=== PATIENT | male | born 1985 | race Caucasian/White ===

== ENCOUNTER 2019-11-04 18:47 | Emergency (ER) | payer SELFPAY ==
[2019-11-04 18:52] VITALS: BP 138/78; PULSE 78; RESP 18; TEMP 37; O2SAT 100
--- NOTE | 2019-11-04 20:07 | ED.GENADULT ---
HPI - General Adult General Chief complaint: Unspecified Stated complaint: R NECK/THROAT PAIN Time Seen by Provider: 11/04/19 18:53 Source: patient Mode of arrival: ambulatory Limitations: no limitations History of Present Illness HPI narrative: Patient is a 34-year-old male who presents to emergency department for evaluation of right neck pain that is been going on for over a month has been evaluated for this was told that he had a salivary duct stone patient is not follow-up with specialty services as instructed patient on arrival to emergency department notes that he gets bouts of intermittent pain that radiates down the neck gets chills and sweats at times with it and the pain resolves spontaneously patient on arrival to emergency department is resting comfortably in the room in no distress Related Data Allergies Allergy/AdvReac Type Severity Reaction Status Date / Time tramadol AdvReac Severe Nausea and Verified 02/16/19 07:38 Vomiting codeine AdvReac Intermediate N/V Verified 02/16/19 07:38 Review of Systems Review of Systems: All systems reviewed & are unremarkable except as noted in HPI and below Exam Narrative: Exam Narrative: GENERAL: Well-appearing, well-nourished, and in no acute distress. HEAD: Normocephalic, atraumatic. EYES: PERRLA and EOMI. ENT: Nares clear, no rhinorrhea or epistaxis. Mucous membranes moist. Oropharynx without tonsillar hypertrophy exudate or other lesions. Tenderness of the right sublingual gland with no swelling or deformity noted NECK: Supple. No adenopathy or masses. CHEST: Clear to auscultation. No respiratory distress. No wheezes rales or rhonchi HEART: Regular rate and rhythm. No murmur heard. EXTREMITIES: Normal range of motion. No edema. SKIN: Warm, dry, no rash. NEURO: No focal deficits. Alert and oriented x3. PSYCH: Normal mood and affect. Course Course Emergency Course: Patient in the room in no distress Vital Signs Vital signs: Vital Signs Temperature 98.6 F 11/04/19 18:52 Pulse Rate 78 11/04/19 18:52 Respiratory Rate 18 11/04/19 18:52 Blood Pressure 138/78 11/04/19 18:52 Pulse Oximetry 100 11/04/19 18:52 Temperature 98.6 F 11/04/19 18:52 Pulse Rate 78 11/04/19 18:52 Respiratory Rate 18 11/04/19 18:52 Blood Pressure 138/78 11/04/19 18:52 Pulse Oximetry 100 11/04/19 18:52 Medical Decision Making MDM Narrative Medical decision making narrative: Patient afebrile nontoxic-appearing no distress patient referred to ENT and provided with reasons to return. There are no focal signs of space occupying lesions that are compromising to the ariway. The floor of the mouth is soft with no signs of Ludwigs Angina. Patient is without trismus or drooling and able to swallow secreations. Patient is felt appropriate for discharge home with dental follow up. Vital Signs Vital Signs: Vital Signs Temperature 98.6 F 11/04/19 18:52 Pulse Rate 78 11/04/19 18:52 Respiratory Rate 18 11/04/19 18:52 Blood Pressure 138/78 11/04/19 18:52 Pulse Oximetry 100 11/04/19 18:52 Temperature 98.6 F 11/04/19 18:52 Pulse Rate 78 11/04/19 18:52 Respiratory Rate 18 11/04/19 18:52 Blood Pressure 138/78 11/04/19 18:52 Pulse Oximetry 100 11/04/19 18:52 Discharge Plan Discharge Clinical Impression: Acute neck pain Patient Disposition: Home, Self-Care Condition: Stable Instructions: Antibiotic Form, Acute Neck Pain (ED) Additional Instructions: Follow up with your ENT within 5-7 days. Go to ER for shortness of breath, difficulty breathing, chest pain, fever/chills, weakness, nauseau/vomitting, unable to swallow or open the mouth etc. or any other concerns. Take any prescribed medications as directed. If you do not have a drug allergy to tylenol or motrin and can tolerate it then take tylenol or motrin as needed for discomfort/pain. Follow-up/Referrals: Eddi Logan MD [Primary Care Provider] -
[2019-11-04 20:20] VITALS: BP 134/85; PULSE 81; RESP 16; TEMP 36.2; O2SAT 100
== END 2019-11-04 20:21 | disposition home or self-care (01) ==
PROVIDERS: Emergency Provider Emergency Medicine; PCP Family Medicine
DX: M54.2 Cervicalgia (principal)
CPT/HCPCS: 99281

== ENCOUNTER 2019-11-09 19:19 | Emergency (ER) | payer SELFPAY ==
[2019-11-09 19:23] VITALS: BP 149/89; PULSE 96; RESP 18; TEMP 36.5; O2SAT 100
--- NOTE | 2019-11-09 20:25 | ECG_ITS ---
Measurements Intervals [place] Rate: 67 P: 73 MS: 173 QRS: 89 QRSD: 96 T: 68 QT: 374 QTc: 396 Interpretive Statements SINUS RHYTHM BASELINE ARTIFACT- V1-V2, V6 NORMAL ECG Electronically Signed On 11-10-2019 6:53:26 CDT by Christos Brown D.O.
--- NOTE | 2019-11-09 20:26 | ED.GENADULT ---
HPI - General Adult General Chief complaint: Unspecified Stated complaint: neck pain Time Seen by Provider: 11/09/19 20:07 Source: patient Mode of arrival: ambulatory Limitations: no limitations History of Present Illness HPI narrative: Patient presents with several concerns. He has a known salivary gland stone, that he wants to have removed, but he is deadly afraid of needles and will not have medical procedures that have to do with needles. He has a PCP appointment December 13, but thinks that he may have a heart attack in his kitchen and drop before then. He went to the chiropractor today and felt fine, and then got home and started panicking. He worries that his stone is going to push on a vein or artery and will kill him. He has never seen a psychiatrist, and refuses any psych meds for his anxiety. He is afraid of a doctor bossing him around and making him have procedures. He works as a general internist. He is fine while he is busy at work. Onset (ago): year(s) Severity: moderate Relieving factors: none Associated symptoms: denies other symptoms Treatments prior to arrival: none Related Data Allergies Allergy/AdvReac Type Severity Reaction Status Date / Time tramadol AdvReac Severe Nausea and Verified 11/09/19 19:24 Vomiting codeine AdvReac Intermediate N/V Verified 11/09/19 19:24 Review of Systems Review of Systems: All systems reviewed & are unremarkable except as noted in HPI and below Constitutional: Constitutional: Reports no additional constitutional complaints ENT: Reports system reviewed and no additional complaints, except as documented, Denies dysphagia, Denies epistaxis, Denies nasal congestion and Denies sore throat Cardiovascular: Cardiovascular: Reports rapid heart rate Respiratory: Respiratory: Reports no additional respiratory complaints Gastrointestinal: Gastrointestinal: Reports no additional gastrointestinal complaints Neurologic: Comments: He has tremor when he gets really worked up. Psychiatric: Psychiatric: Reports anxiety, Denies homicidal ideation and Denies suicidal ideation ON LICENSE OF [facility] Past Medical History Medical History (Updated 11/09/19 @ 20:37 by Dot Gibbons MD) Male circumcision Surgical History Surgical History (Updated 11/09/19 @ 20:33 by Dot Gibbons MD) [place] teeth extracted Social History Social History (Updated 11/09/19 @ 20:35 by Dot Gibbons MD) Smoking status: Current every day smoker Tobacco type: cigarettes Alcohol intake: former Substance use: never Living arrangements: alone 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 Gender identity (if verbalized by the patient): Male Exam Const: General: alert Nutritional Appearance: thin Orientation/consciousness: patient oriented x3 HENMT: Head: normal to inspection Face and sinus: normal facial exam Mouth: Yes moist mucous membranes Eyes: Conjunctivae: conjunctivae normal Pupils: Equal, round and reactive pupils present EOM: EOMs intact bilaterally Neck: Neck: normal visual inspection, no lymphadenopathy and no meningeal signs Chest: Chest palpation & inspection: normal inspection of the chest Resp: Effort & Inspection: normal respiratory effort Auscultation: clear to auscultation bilaterally Cardio: Rate: regular rate Rhythm: regular rhythm GI: GI Palp: Yes Soft to palpation Skin: General skin exam: normal color Neuro: General: patient oriented x3, moves all extremities, no focal motor deficits and CN's II-XI intact bilaterally Speech: normal speech Psych: Thought content: Yes Phobia(s) present Other: He is crying that he can't have any procedures because of his needle phobia and he doesn't want to take any nerve medications. Course Reevaluation(s) Reevaluation #1: He is resting quietly and will accept a prescription for atarax 25mg for anxiety. Date: 11/09/19 Time: 21:47 Vital Signs Vital signs: Vital Signs Temperatu
[2019-11-09 21:31] VITALS: BP 110/71; PULSE 78; RESP 18; O2SAT 100
[2019-11-09 21:49] VITALS: BP 110/71; PULSE 62; RESP 18; O2SAT 99
== END 2019-11-09 21:50 | disposition home or self-care (01) ==
PROVIDERS: Emergency Provider Emergency Medicine; PCP Family Medicine
DX: K11.5 Sialolithiasis (principal); F41.9 Anxiety disorder, unspecified; F40.232 Fear of other medical care; R00.0 Tachycardia, unspecified; F17.210 Nicotine dependence, cigarettes, uncomplicated
CPT/HCPCS: 93005; 99283

== ENCOUNTER 2022-07-18 17:08 | Emergency (ER) | payer SELFPAY ==
[2022-07-18 17:10] VITALS: BP 131/83; PULSE 108; RESP 18; TEMP 36.7; O2SAT 100
--- NOTE | 2022-07-18 18:00 | ED.GENADULT ---
HPI - General Adult General Chief complaint: Unspecified Stated complaint: salivary gland stone, can't get in to ENT Time Seen by Provider: 07/18/22 17:51 History of Present Illness HPI narrative: 27 year old male presents to the ER for evaluation of a suspected obstructed salivary stone to the right side. States pain has been present for several days and is associated with dysphagia. Patient reports he has an appointment with MD Cedeño in 3 days. Endorses a history of salivary stone obstruction with possible stent (?) placement in the salivary gland. Paitent denies fever. Related Data Allergies Allergy/AdvReac Type Severity Reaction Status Date / Time tramadol AdvReac Severe Nausea and Verified 07/18/22 17:51 Vomiting codeine AdvReac Intermediate N/V Verified 07/18/22 17:51 Review of Systems Review of Systems: CONSTITUTIONAL: Denies fever, chills, or sweats. EYES: Denies visual changes, redness, or discharge. ENT: Denies rhinorrhea, congestion, sore throat, or otalgia. CARDIOVASCULAR: Denies chest pain, palpitations, or edema. RESPIRATORY: Denies cough or dyspnea. GASTROINTESTINAL: Denies abdominal pain, nausea, vomiting, or diarrhea. GENITOURINARY: Denies dysuria or hematuria. SKIN: Denies rash or itching. MUSCULOSKELETAL: Denies back pain, joint pain, or myalgia. NEUROLOGIC: Denies headache, numbness, dizziness, or weakness. PSYCHIATRIC: Denies anxiety or depression. [facility] Past Medical History Medical History Male circumcision Surgical History Surgical History [place] teeth extracted Social History Social History Smoking status: Current every day smoker Tobacco type: cigarettes Alcohol intake: former Substance use: never Additional occupation/education comments: contractor Gender identity (if verbalized by the patient): Male Exam Narrative: GENERAL: Well-appearing, well-nourished, no physical limitations, and in acute distress. HEAD: Normocephalic, atraumatic. EYES: Conjunctivae normal, PERRLA and EOMI. ENT: deferred to MD Cai NECK: Supple. No meningeal signs. No adenopathy or masses. No carotid bruits or JVD CHEST: Clear to auscultation. No respiratory distress. No wheezes rales or rhonchi. No tenderness. HEART: Regular rate and rhythm. No murmur heard. Normal peripheral pulses. EXTREMITIES: Normal range of motion. No edema. No clubbing or cyanosis SKIN: Warm, dry, no rash. No noted wounds NEURO: No focal deficits. Alert and oriented x3. MAEW. CN's II-XI intact bilaterally, normal gait PSYCH: Cooperative. Normal mood and affect. Course Course Emergency Course: 1744: MD Cai at bedside to evaluate patient. Vital Signs Vital signs: Vital Signs Temperature 36.7 C 07/18/22 17:10 Pulse Rate 108 H 07/18/22 17:10 Respiratory Rate 18 07/18/22 17:10 Blood Pressure 131/83 07/18/22 17:10 Pulse Oximetry 100 07/18/22 17:10 Oxygen Delivery Room Air 07/18/22 17:10 Temperature 36.7 C 07/18/22 17:10 Pulse Rate 108 H 07/18/22 17:10 Respiratory Rate 18 07/18/22 17:10 Blood Pressure 131/83 07/18/22 17:10 Pulse Oximetry 100 07/18/22 17:10 Oxygen Delivery Room Air 07/18/22 17:10 Medical Decision Making MDM Narrative Medical decision making narrative: 37-year-old male presented to the emergency room for evaluation of suspected salivary gland stone obstruction. MD Cai was in the department and I asked him to evaluate the patient. Patient stated he sees Dr. Ornelas, and has an appointment to see him in 3 days. Patient also reports that there is a possible salivary gland stent that was placed [address] Cai was unable to dislodge the stone through manual manipulation, he encourage patient to follow-up with Dr. Cedeño in [address] Cai also recommends antibiotics and
[2022-07-18 18:03] VITALS: BP 133/77; PULSE 88; RESP 16; TEMP 36.7; O2SAT 100
== END 2022-07-18 18:04 | disposition home or self-care (01) ==
PROVIDERS: Emergency Provider Nurse Practitioner Family; PCP Family Medicine
DX: K11.5 Sialolithiasis (principal); F17.210 Nicotine dependence, cigarettes, uncomplicated
CPT/HCPCS: 99283

== ENCOUNTER 2023-02-26 05:49 | Emergency (ER) | payer SELFPAY ==
[2023-02-26] VITALS (37 sets, daily range): BP systolic 54–139; BP diastolic 29–121; PULSE 65–523; RESP 10–21; TEMP 36.8–36.9; O2SAT 86–100
--- NOTE | ~2023-02-26 | CT_ITS ---
EXAMINATION: CT soft tissue neck w con DATE: 02/26/2023 08:44 INDICATION: Neck mass. Swollen salivary gland. Neck pain. Dysphagia. TECHNIQUE: Computed tomography (CT) of the neck was performed with 75 mL Omnipaque-350 intravenous co ntrast. Automated exposure control and iterative reconstruction technique were employed. The dose-jacklyn gth product was 459.56 mGy-cm. COMPARISON: None FINDINGS: There is mild scarring at the lung apices. There is mild emphysema. There is an 11 mm stone in the duct of right submandibular gland. There is severe atrophy of right submandibular gland. Ther e are 2 mm and 1 mm stones in the duct for left submandibular gland. In the left floor of mouth, ther e is a 3.0 x 1.4 x 1.4 cm abscess containing fluid and gas and 7 mm and 2 mm stones. The abscess is c ontiguous with the duct for submandibular gland. There is mucosal thickening involving the nasopharyn x, oropharynx, and supraglottic larynx, left worse than right. There is moderate atrophy of left palak ibular gland. There is fat stranding in the neck, left worse than right, consistent with inflammation . There is left retropharyngeal, bilateral high internal jugular, and left mid internal jugular lymph adenopathy. For example, a left high internal jugular chain node measures 2.0 x 1.5 cm. There is an i ncreased number of normal-sized submandibular lymph nodes. The cervical carotid arteries are normal. The internal jugular veins are patent. There is mucosal thickening in the paranasal sinuses. There is extensive dental disease. The mastoid air cells are normal. There is mild cervical spondylosis. IMPRESSION: 1. Abscess in the left floor of mouth that is contiguous with the duct for left submandibular gland. 2. Stones in the ducts for the submandibular glands bilaterally. 3. Inflammation of the pharynx and larynx. 4. Cervical lymphadenopathy, likely reactive. 5. Mild emphysema. 6. Extensive dental disease. Reviewed, dictated and finalized at location A.
--- NOTE | 2023-02-26 06:02 | PC.NURSE ---
Patient brought back to ED room 8. Patient changed into ED gown and sat down on stretcher. PILLO Meredith entered room with IV and blood draw supplies. Patient then asked if we could wait on the IV because he has a phobia of needles and is already freaking out. Patient became anxious and kept repeating he wanted to wait on the doctor before Masoud luna I established an IV. Patient connected to cardiac, pulse ox, and blood pressure monitors. Patient in no noted distress while sitting on the stretcher, equal chest rise and fall presents, patient speaking in full and complete sentences, and oxygen saturations of 99% on room air. Rope Making Machine Operator notified patient that will wait for physician to see patient before and IV is established.
--- NOTE | 2023-02-26 07:20 | ED.GENADULT ---
HPI - General Adult General Chief complaint: Unspecified Stated complaint: throat swelling Time Seen by Provider: 02/26/23 07:10 History of Present Illness HPI narrative: Pt presents with mass in left neck. Pt has trouble swallowing due to pain but able to swallow saliva. Pt denies fever or chills. Pt has dental caries and says has appointment with dentist. Related Data Allergies Allergy/AdvReac Type Severity Reaction Status Date / Time tramadol AdvReac Severe Nausea and Verified 07/18/22 17:51 Vomiting codeine AdvReac Intermediate N/V Verified 07/18/22 17:51 Review of Systems Review of Systems: All systems reviewed & are unremarkable except as noted in HPI and below PMFSH Past Medical History Medical History Male circumcision Surgical History Surgical History [place] teeth extracted Social History Social History Smoking status: Current every day smoker Tobacco type: cigarettes Alcohol intake: former Substance use: never Living arrangements: alone 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 Gender identity (if verbalized by the patient): Male Exam Const: General: cooperative, healthy appearing and no acute distress Nutritional Appearance: average body habitus Orientation/consciousness: patient oriented x3 Limitations: no limitations HENMT: Mouth: Yes other (numerous dental caries but no definitive abscess) Teeth and gingiva: caries and poor dentition Throat: posterior oropharynx normal Neck: Neck: trachea midline, lymphadenopathy, tender and submandibular swelling (left side mass) Thyroid: thyroid normal Resp: Effort & Inspection: normal respiratory effort Auscultation: clear to auscultation bilaterally Cardio: Rate: regular rate Rhythm: regular rhythm Skin: General skin exam: normal color and no rashes or lesions noted Neuro: General: patient oriented x3, moves all extremities, no meningeal signs and no focal motor deficits Cognition (Neuro): normal cognition Speech: normal speech Extrem: General: normal to inspection and full ROM Psych: Appearance: grossly normal Mental Status: mental status grossly normal Speech and movement: Normal speech and movement present Affect: normal affect Attitude: cooperative Thought process: Normal thought process present Thought content: Yes Normal thought content present Insight: Good insight present (Psych) Judgement: Good judgement present (Psych) Course Vital Signs Vital signs: Vital Signs Temperature 98.5 F 02/26/23 05:50 Pulse Rate 107 H 02/26/23 05:50 Respiratory Rate 18 02/26/23 05:50 Blood Pressure 116/65 02/26/23 05:50 Pulse Oximetry 100 02/26/23 05:50 Oxygen Delivery Room Air 02/26/23 05:50 Temperature 98.3 F 02/26/23 14:00 Pulse Rate 100 02/26/23 14:00 Respiratory Rate 16 02/26/23 14:00 Blood Pressure 126/80 02/26/23 14:00 Pulse Oximetry 97 02/26/23 14:00 Oxygen Delivery Room Air 02/26/23 05:50 Medical Decision Making MDM Narrative Medical decision making narrative: Pt has tender mass left submandibular region, could be reactive node or abscess maybe even extending to Vito's. will need labs and CT soft tissue neck. Pt has abscess in submandibular salivary gland on CT. Dr Cai came and saw patient and the abscess started draining into his mouth. Pt given dose of antibiotics and steroids in ER and over next coupl of hours pt manualy expressed most of the pus out of the abscess himself. Pt was reassesed by Dr Cai and he thought the patient could be safely discharged and pt agreed. Vital Signs Vital Signs: Vital Signs Temperature 98.5 F 02/26/23 05:50 Pulse Rate 107 H 02/26/23 05:50 Respiratory Rate 18 02/26/23 05:50 Blood Pressure 116/65 /01
[2023-02-26 07:52] LABS: Basophils Absolute Auto 0.1 K/mm3 (0.0-0.1); Basophils Percent Auto 0.5 % (0.2-1.2); Hematocrit 47.2 % (42.0-52.0); Immature Granulocyte Absolute 0.14 K/mm3 (0.00-0.031); Immature Granulocyte Percent A 0.6 % (0-0.5); Lymphocytes Absolute Auto 2.92 K/mm3 (0.9-3.2); Lymphocytes Percent Auto 13.1 % (18.3-44.2); Mean Corpuscular HGB Conc 33.9 g/dl (32-36); Mean Corpuscular Hemoglobin 30.9 pg (26-34); Mean Corpuscular Volume 91.3 fl (80-100); Mean Platelet Volume 9.9 fl (7.4-10.4); Monocytes Absolute Auto 2.1 K/mm3 (0.1-0.6); Monocytes Percent Auto 9.6 % (2.6-8.5); Neutrophils Absolute Auto 16.9 K/mm3 (1.3-6.7); Neutrophils Percent Auto 76.2 % (45.5-73.1); Platelet Count Result 233 k/mm3 (150-375); Red Blood Count 5.17 M/mm3 (4.6-6.20); Red Cell Distribution Width 13.2 % (11.5-14.5); White Blood Count 22.3 K/mm3 (4.5-10.0)
--- NOTE | 2023-02-26 07:53 | PC.NURSE ---
Unsuccessful IV attempt on pt. Pt stated he is afraid of needles and refused to sit in bed. Pt reported feeling lightheaded and dizzy and was told by this RN that he needed to sit in the bed. Pt had vasovagal response and then was helped to stretcher and stretcher was placed in Trendelenburg. Pt placed in Trendelenburg and symptoms and vital signs improved. Pt educated on importance of staying in bed.
[2023-02-26 08:03] LABS: INR 1.2; Prothrombin Time 15.8 Seconds (11.1-14.7)
[2023-02-26 08:04] LABS: Partial Thromboplastin Time 29.9 SECONDS (22.3-36.8)
[2023-02-26 08:05] LABS: Alanine Aminotransferase 19 U/L (6-50); Albumin Level 5.2 g/dL (3.5-5.1); Alkaline Phosphatase 71 U/L (38-126); Anion Gap 12 mmol/L (8-16); Aspartate Amino Transferase 27 U/L (17-59); Bilirubin,Total 2.2 mg/dL (0.2-1.3); Blood Urea Nitrogen 13 mg/dL (9-20); Calcium 9.7 mg/dL (8.4-10.2); Carbon Dioxide 27 mmol/L (22-30); Chloride 99 mmol/L (98-107); Estimated CRCL calculation 102 ml/min; Estimated Glomerular Filt Rate > 60; Glucose 94 mg/dL (65-110); Potassium 3.5 mmol/L (3.4-5.0); Sodium 138 mmol/L (137-145)
[2023-02-26] MEDS: SODIUM CHLORIDE 0.9% IV 1,000 ML 999 ML IV CONT (08:17)
--- NOTE | 2023-02-26 11:40 | WPDCN ---
Assessment and Plan Assessment and plan (1) Sialadenitis: Code(s): K11.20 - Sialoadenitis, unspecified Status: Acute Assessment and Plan: recommended inpatient observation with IV antibiotics and steroids patient says he would rather go home. If discharged recommend a 10 day course of Augmentin or clindamycin and a Medrol Dosepak. Patient should follow-up with Dr. Chuck Adhikari at [facility]. He's a regional expert in salivary gland disorders and may be able to extract the stone. 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 Patient has abscess on the CT. As per the official read. Per my read looks like a dilated duct with the stone in it that abscess behind it. purulence behind in the duct. Was able to squeeze the patient's neck And get A lot of purulence in the patient's mouth. 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 Gender identity (if verbalized by the patient): Male Meds Home Medications and Allergies Home Medications Medication Instructions Recorded Confirmed Type hydroxyzine HCl 25 mg tablet 25 mg PO BID PRN anxiety #7 tabs 11/09/19 Rx amoxicillin 875 mg-potassium 1 tablet PO Q12H #14 tabs 07/18/22 Rx clavulanate 125 mg tablet hydrocodone 5 mg-acetaminophen 325 1 tablet PO Q8H PRN pain #15 tabs 07/18/22 Rx mg tablet amoxicillin 875 mg-potassium 1 tablet PO Q12H #20 tabs 08/01/23 Rx clavulanate 125 mg tablet methylprednisolone 4 mg tablets in See Rx Instructions PO .COMPLEX 02/26/23 Rx a dose pack (Medrol ([place])) #21 ea Allergies Allergy/AdvReac Type Severity Reaction Status Date / Time tramadol AdvReac Severe Nausea and Verified 07/18/22 17:51 Vomiting codeine AdvReac Intermediate N/V Verified 07/18/22 17:51 Vital Signs Vital Signs - 24 hr 02/26/23 05:50 02/26/23 05:58 02/26/23 06:00 Temperature 36.9 C 36.9 C Pulse Rate 107 H 118 H Respiratory Rate 18 18 Blood Pressure 116/65 130/83 Pulse Oximetry 100 100 100 Oxygen Delivery Room Air 02/26/23 06:01 02/26/23 06:03 02/26/23 06:15 Temperature Pulse Rate 112 H 105 H 116 H Respiratory Rate 12 16 Blood Pressure 114/75 Pulse Oximetry 100 100 100 Oxygen Delivery 02/26/23 06:16 02/26/23 06:17 02/26/23 06:38 Temperature Pulse Rate 116 H 111 H 100 Respiratory Rate 16 15 15 Blood Pressure 114/79 Pulse Oximetry 100 100 100 Oxygen Delivery 02/26/23 06:50 02/26/23 07:09 02/26/23 07:15 Temperature Pulse Rate 102 H 108 H 115 H Respiratory Rate 12 21 H Blood Pressure Pulse Oximetry 100 100 Oxygen Delivery 02/26/23 07:16 02/26/23 07:33 02/26/23 07:45 Temperature Pulse Rate 123 H 115 H 523 H Respiratory Rate 13 15 12 Blood Pressure 139/121 H 54/29 L Pulse Oximetry 86 L 100 91 Oxygen Delivery 02/26/23 07:49 02/26/23 07:49 02/26/23 08:00 Temperature Pulse Rate 68 65 92 Respiratory Rate 19 17 15 Blood Pressure 104/62 Pulse Oximetry 97 Oxygen Delivery 02/26/23 08:01 02/26/23 09:01 02/26/23 09:02 Temperature Pulse Rate 93 97 101 H Respiratory Rate 12 16 11 L Blood Pressure 117/69 103/63 Pulse Oximetry 97 100 100 Oxyg
[2023-02-26] MEDS: AMPICILLIN SULB 3 GM/NS 100 ML 3 GM/100 ML VIAL IVPB (11:41)
== END 2023-02-26 14:40 | disposition home or self-care (01) ==
PROVIDERS: Emergency Provider Emergency Medicine
DX: K12.2 Cellulitis and abscess of mouth (principal); F17.210 Nicotine dependence, cigarettes, uncomplicated
CPT/HCPCS: 36415; 70491; 80053; 85025; 85610; 85730; 87040; 96361; 96365; 96375; 99284; J0295; J1100; J7030; Q9967

== ENCOUNTER 2025-01-31 06:50 | Emergency (ER) | payer SELFPAY ==
--- OUTSIDE RECORDS SUMMARY | 2025-01-31 06:52 | XMS_ITS | Encounter Summary ---
Author Organization [facility] Healthcare Address [address] [place] [address] Care Team Providers Care Home Security Alarm Installer Name Role Phone No, Physician Primary Care Provider [phone] Encounter Details Date Type Department Care Team (Latest Contact Info) Description 01/30/2025 Telephone Otolaryngology Mando Mccullough MD [address] [address] Social History Tobacco Use Types Packs/Day Years Used Date Smoking Tobacco: Every Day Cigarettes 0.8 22.5 Started: 2002 Passive Smoke Exposure: Past Smokeless Tobacco: Never [facility] Utilities Answer Date Recorded In the past 12 months has [employer] electric, gas, oil, or water company threatened to shut off services in your home? No 01/08/2025 Social Connection and Isolat ion Panel [NHANES] Answer Date Recorded In a typical week, how many times do you talk on the phone with family, friends, or neighbors? More than three times a week 01/08/2025 How often do you get togethe r with friends or relatives? More than three times a week 01/08/2025 How often do you attend chur ch or orthodoxy services? Never 01/08/2025 Do you belong to any clubs o r organizations such as confucianist groups, unions, fraternal or athletic groups, or school groups? No 01/08/2025 How often do you attend meet ings of the clubs or organizations you belong to? Never 01/08/2025 Are you , , di vorced, , never , or living with a partner? Never 01/08/2025 AUDIT-C Answer Date Recorded Q1: How often do you have a drink containing alcohol? Never 01/15/2025 Q2: How many drinks containi ng alcohol do you have on a typical day when you are drinking? Patient does not drink Q3: How often do you have si x or more drinks on one occasion? Never 01/15/2025 Overall Financial Resource Strain (CARDIA) Answe r Date Recorded How hard is it for you to pa y for the very basics like food, housing, medical care, and heating? Not hard at all 01/08/2025 PHQ-2 Answer Date Recorded PHQ-2 Total Score (If total score is 3 or more points, staff should administer the PHQ-9) 1 01/08/2025 Hunger Vital Sign Answer Date Recorded Within the past 12 months, y ou worried that your food would run out before you got the money to buy more. Never true 01/09/20 25 Within the past 12 months, t he food you bought just didn't last and you didn't have money to get more. Never true 01/08/2025 PRAPARE - Transportation Answer Date Re corded In the past 12 months, has l ack of transportation kept you from medical appointments or from getting medications? No 12/27 In the past 12 months, has l ack of transportation kept you from meetings, work, or from getting things needed for daily living? No 01/08/2025 Housing Stability Vital Sign Answer John e Recorded In the last 12 months, was t here a time when you were not able to pay the mortgage or rent on time? No 01/08/2025 In the past 12 months, how m any times have you moved where you were living? 1 01/08/2025 At any time in the past 12 m [facility], were you homeless or living in a longterm (including now)? No 01/08/2025 Personal Safety Answer Date Recorded Have you ever been in or are you currently in a harmful physical or emotional relationship or is someone making you feel afraid or unsafe? Denies 01/15/2025 Sex and Gender Information Value Date Recorded Sex Assigned at Not on file Legal Sex Male 11:15 AM CDT Gender Identity Not on file Sexual Orientation Not on file documented as of this encounter Miscellaneous Notes * Telephone Encounter - Mando Mccullough MD - 01/30/2025 11:12 PM CDT Pt is s/p SMG excision on 01/15/25. Most recently, pt was seen in clinic by Dr. Can on 01/26 where he was placed on doxycycline and augmentin and received needle aspiration. He notes that his neck hasreaccumulated with fluid, and is erythematous and tender. He does not have fever, general malaise, or SOB. We discussed options including coming into the ED for evaluation and drainage versus observation and following up on clinic on Saturday. We discussed that should he develop fever, general malaise, SOB, purulence, or worsening symptoms, he should present to the ED for evaluation. documented in this encounter Plan of Treatment Not on file documented as of this encounter Visit Diagnoses Not on filedocumented in this encounter Care Teams Home Security Alarm Installer Relationship Specialty Start Date End Date No, Physician PCP - General 05/13/23 documented as of this encounter
--- OUTSIDE RECORDS SUMMARY | 2025-01-31 06:53 | XMS_ITS | Clinical Summary ---
Author Organization [facility] Address [address] [place] [id number] Care Team Providers Care Manufacturing Recruiter Name Role Phone None, Provider MD Primary Care Provider Unavaila ble Allergies Active Allergy Reactions Criticality Noted Date Comments Codeine Nausea Only 04/26/2020 Medications No known medications Active Problems No known active problems Immunizations Immunization Administration Dates Next Due Tdap (Adacel) 04/26/2020 Family History Medical History Relation Comments No Known Problems Mother Relation Status Comments Mother Social History Tobacco Use Types Packs/Day Years Used Date Smoking Tobacco: Every Day Cigarettes Smokeless Tobacco: Never Alcohol Use Standard Drinks/Week Comments Never 0 (1 standard drink = 0.6 oz pur e alcohol) AUDIT-C Answer Date Recorded Q1: How often do you have a drink containing alc ohol? Never 04/26/2020 Average Number of Drinks Not on file 020 Frequency of Binge Drinking Not on file 03/30 Sex and Gender Information Value Date Recorded Sex Assigned at Not on file Legal Sex Male 3:33 AM CDT Gender Identity Not on file Sexual Orientation Not on file Last Filed Vital Signs Vital Sign Reading Time Taken Comments Blood Pressure 121/79 05/06/2023 11:29 AM CDT Pulse 86 05/06/2023 11:29 AM CDT Temperature 36.9 C (98.4 F) 05/06/2023 11:29 AM CDT Respiratory Rate 16 05/06/2023 11:29 AM CDT Oxygen Saturation 99% 05/06/2023 11:29 AM CDT Inhaled Oxygen Concentration - - Weight 62.1 kg (137 lb) 05/06/2023 11:29 AM CDT Height 170.2 cm (5' 7) 05/06/2023 11:29 AM CDT Body Mass Index 21.46 05/06/2023 11:29 AM CDT Plan of Treatment Health Maintenance Due Date Last Done Comments Annual Physical 1987 Hepatitis C 2002 Hepatitis B Vaccines (1 of 3 - 19+ 3-dose series) 2003 Pneumococcal Vaccine: Pediat rics (0 to 5 Years) and At-Risk Patients (6 to 49 Years) (1 of 2 - PCV) 2003 COVID-19 Vaccine (2023-2 5 season) 2024 DTaP, Tdap and Td Vaccines ( 2 - Td or Tdap) 04/26/2030 04/26/2020 HPV Vaccines Aged Out No longer eligi ble based on patient's age to complete this topic Meningococcal B Vaccine Aged Out No l onger eligible based on patient's age to complete this topic Meningococcal Vaccine Aged Out No jeanette cali eligible based on patient's age to complete this topic RSV Immunizations Under 20 Months Aged Out No longer eligible based on patient's age to complete this topic Care Teams Manufacturing Recruiter Relationship Specialty Start Date End Date None, Provider, MD PCP - General UNKNOWN PHYSICIAN SPECIALTY 05/06/23
--- OUTSIDE RECORDS SUMMARY | 2025-01-31 06:53 | XMS_ITS | Referral Summary ---
Author Organization [facility] [address] Address [address] [place] [address] Care Team Providers Care Seed Analysis Laboratory Assistant Name Role Phone No, Physician Primary Care Provider [phone] Encounters Date Type Department Care Team Description 01/30/2025 Telephone Otolaryngology Mando Mccullough MD 01/26/2025 2:41 PM CDT - 01/26/2025 11:59 PM CDT Hospital Encounter [address] [id number] Abscess; Abscess of skin of neck Discharge Disposition: Discharge to home or self care 01/26/2025 Orders Only [facility] ([facility]) - [facility] ENT [address] [place] [address] Advanced Medicine 11th [place] [address] [place] [address] Stacie Can MD Abscess of skin of neck (Primary Dx); Abscess 01/26/2025 9:00 AM CDT Office Visit [facility] ([facility]) - [facility] ENT [address] [place] [address] Advanced Medicine 11th [place] [address] [place] [address] Stacie Can MD Submandibular sialoadenitis (Primary Dx); Abscess of skin of neck 01/15/2025 9:05 AM CDT - 01/15/2025 12:00 PM CDT Surgery [facility] Operating [facility] [address] [place] [id number] Stacie Can MD EXCISION SUBMANDIBULAR GLAND 01/15/2025 9:31 AM CDT Anesthesia Event [facility] Operating Room [facility] [address] [place] [address] Bharat Jasmine MD Heuvelman, Katherine Marie, NP 01/15/2025 6:33 AM CDT - 01/15/2025 3:57 PM CDT Hospital Encounter [facility] Operating Room [facility] [address] [place] [phone] Stacie Can MD Submandibular sialolithiasis; Submandibular sialoadenitis; Abscess of submandibular gland Discharge Disposition: Discharge to home or self care 01/14/2025 Telephone [facility] - [facility] ENT [address] [facility] Advanced Medicine [address]th [place] [address] [place] [address] Michelle Rolle, KARELY 01/11/2025 Telephone [facility] ([facility]) - [facility] ENT [address] [facility] Advanced Medicine [address]th [place] [address] [place] [address] Michelle Rolle, KARELY 01/07/2025 3:30 AM CDT - 01/10/2025 1:24 PM CDT Hospital Encounter [facility] [address] [place] [address] Bessy Shore MD [place], MD Shruthi Roper Sean C., MD Petrovic Elbaz, Mirjana, MD Sialadenitis (Primary Dx); Neck abscess Discharge Disposition: Discharge to home or self care 01/05/2025 Telephone [facility] ([facility]) - [facility] ENT [address] [facility] Advanced Medicine [address]th [place] [address] [place] [address] Michelle Rolle CMA 01/05/2025 Telephone [facility] Advanced [facility] ([facility]) - [facility] ENT [address] [facility] Advanced Medicine [address]th [place] [address] [place] [address] Michelle Rolle CMA 01/05/2025 12:00 PM CDT Telemedicine [facility] ENT [address] [facility] Building [address] [place] [phone] Stacie Can MD Submandibular sialoadenitis (Primary Dx); Sialolithiasis 12/16/2024 Telephone [facility] Advanced [facility] ([facility]) - [facility] ENT [address] [facility] Advanced [facility] [address]th [place] [address] [place] [address] Michelle Rolle CMA 12/16/2024 Telephone [facility] Otolaryngology [address] [place] [address] Mikayla Abebe MS 12/08/2024 1:28 AM CDT - 12/11/2024 12:19 PM CDT Hospital Encounter [address] [phone] Keyur Phillip MD Baum, MD Laya Mckeon Sarakshi, MD Abscess (Primary Dx) Discharge Disposition: Discharge to home or self care 12/07/2024 8:57 PM CDT - 12/07/2024 10:41 PM CDT Emergency [address] [address] Sialoadenitis (Primary Dx); Submandibular abscess Discharge Disposition: Discharge to a short term hospital for IP 12/07/2024 Telephone [facility] ENT [address] [facility] Medical [facility] [address] [place] [phone] Michelle Rolle CMA 12/06/2024 8:19 AM CDT - 12/06/2024 9:40 AM CDT Emergency [facility] Emergency Department [address] [place] [phone] Jose Caal MD Submandibular sialoadenitis (Primary Dx) Discharge Disposition: Discharge to home or self care from Last 3 Months Allergies Active Allergy Reactions Criticality Noted Date Comments Codeine Nausea only Low 04/26/2020 Medications acetaminophen (TYLENOL) 500 mg tablet Take 1 tablet (500 mg total) by mouth every 6 (six) hours as needed for pain Active ibuprofen 200 mg tab/cap Take 2 tablet/capsule (400 mg total) by mouth every 6 (six) hours as needed for pain Active amoxicillin-c lavulanate (AUGMENTIN) 875-125 mg per tabletIndicat ions:Upper Respiratory/H EENT Infection Take 1 tablet (875 mg of amoxicillin total) by mouth 2 (two) times a day for 14 days 28 tablet 01/27/20 25 025 Active doxycycline (VIBRAMYCIN) 100 mg capsuleIndica tions:Upper Respiratory/H EENT Infection Take 1 tablet/capsule (100 mg total) by mouth 2 (two) times a day for 14 days 28 tablet/caps ule 01/27/20 25 025 Active levoFLOXacin (LEVAQUIN) 500 mg tabletIndicat ions:Upper Respiratory/H EENT Infection Take 1 tablet (500 mg total) by mouth daily for 10 days 10 tablet 01/06/20 25 025 Discontinued(St op Taking at Discharge) amoxicillin-c lavulanate (AUGMENTIN) 875-125 mg per tablet Take 1 tablet by mouth 2 (two) times a day for 5 days 10 tablet 01/11/20 25 025 Discontinued amoxicillin-c lavulanate (AUGMENTIN) 875-125 mg per tablet Take 1 tablet by mouth 2 (two) times a day for 6 days 12 tablet 01/11/20 25 025 Discontinued(St op Taking at Discharge) doxycycline (VIBRAMYCIN) 100 mg capsule Take 1 tablet/capsule (100 mg total) by mouth 2 (two) times a day for 6 days 12 tablet/caps ule 01/11/20 25 025 Discontinued(St op Taking at Discharge) HYDROcodone-a cetaminophen (NORCO) 5-325 mg per tabletIndicat ions:Pain Take 1 tablet by mouth every 6 (six) hours as needed for pain for up to 7 days 15 tablet 01/16/20 25 025 amoxicillin-c lavulanate (AUGMENTIN) 875-125 mg per tablet Take 1 tablet by mouth 2 (two) times a day for 7 days 14 tablet 01/16/20 25 025 bacitracin-po lymyxin B (bacitracin zinc-polymyxi n B) ointment Apply topically 2 (two) times a day for 3 days Apply to incision 2 times daily x 3 days 15 g 1 01/16/20 25 025 doxycycline (VIBRAMYCIN) 100 mg capsule Take 1 tablet/capsule (100 mg total) by mouth 2 (two) times a day for 7 days 14 tablet/caps ule 01/16/20 25 025 Hospital, Clinic, or Other Facility Administered Medication Ordered Dose Route Frequency Start Date End Date Status cefepime (MAXIPIME) 2,000 mg/100 mL in dextrose (premix) 2,000 mgIndications:Skin /Soft Tissue Infection 2000 mg IV Every 8 hours scheduled 01/07/2025 5 Discontinued vancomycin (VANCOCIN) solution 1,000 mgIndications:Skin /Soft Tissue Infection 1000 mg IV Every 12 hours scheduled 01/07/2025 5 Discontinued metroNIDAZOLE (FLAGYL) tablet 500 mgIndications:Skin /Soft Tissue Infection 500 mg oral 4 times daily 01/07/2025 5 Discontinued Active Problems Problem Noted Date Diagnosed Date Hyperkalemia 01/08/2025 Assessment & Plan (01/10/2025 8:15 AM CDT): K 5.5 in admission labs, resolved with out intervention , K normal on 01/08 labs Assessment & Plan (01/09/2025 8:23 AM CDT): K 5.5 in admission labs, resolved with out intervention , K normal on 01/08 labs Assessment & Plan (01/08/2025 2:02 PM CDT): K 5.5 in admission labs, resolved with out intervention , K normal on 01/08 labs Submandibular sialolithiasis 12/15/2024 Submandibular sialoadenitis 12/15/2024 Abscess of submandibular gland 12/15/2024 Assessment & Plan (01/10/2025 4:41 PM CDT): Hx of bilateral submandibular duct sialolithiasis c/b left SMG abscess s/p needle aspiration on 12/11, discharged on Augmentin and added ciprofloxacin returning with recurrence of neck mass and concern for repeat infection. S/p needle aspiration of 12cc purulent material in ED by ENT, sent for culture. Prior aspiration culture last admission grew upper respiratory osmar including strep anginosus. - ENT consult appreciated - continue unasyn, stop clinda per abx stewardship as likely not needed at this time. - aspirate culture from 01/07- Fusobacterium nucleatum , Beta lactamase negative - cultures from repeat I&D on 01/08- Few Coagulase negative Staphylococcus species - warm compresses 3x daily - trial pilocarpine TID - ID conuslt appreciated- dc-ed on Augmentin and Doxycyline until surgery with further evaluation for abx need after surgery - Bilateral SMG excision scheduled for 01/15/2025 outpatient with ENT Assessment & Plan (01/10/2025 7:35 AM CDT): Hx of bilateral submandibular duct sialolithiasis c/b left SMG abscess s/p needle aspiration on 12/11, discharged on Augmentin and added ciprofloxacin returning with recurrence of neck mass and concern for repeat infection. S/p needle aspiration of 12cc purulent material in ED by ENT, sent for culture. Prior aspiration culture last admission grew upper respiratory osmar including strep anginosus. - ENT consult appreciated - continue unasyn, stop clinda per abx stewardship as likely not needed at this time. - aspirate culture from 01/07- no growth to date - cultures from repeat I&D on 01/08- no growth to date - warm compresses 3x daily - trial pilocarpine TID - Bilateral SMG excision tentatively scheduled for 01/28/2025 pending clinical progression, may require inpatient SMG excision if not improving Assessment & Plan (01/08/2025 2:02 PM CDT): Hx of bilateral submandibular duct sialolithiasis c/b left SMG abscess s/p needle aspiration on 12/11, discharged on Augmentin and added ciprofloxacin returning with recurrence of neck mass and concern for repeat infection. S/p needle aspiration of 12cc purulent material in ED by ENT, sent for culture. Prior aspiration culture last admission grew upper respiratory osmar including strep anginosus. - ENT consult appreciated - continue unasyn, stop clinda per abx stewardship as likely not needed at this time. - aspirate culture from 01/07- no growth to date - fw cultures from repeat I&D on 01/08 - warm compresses 3x daily - trial pilocarpine TID - Bilateral SMG excision tentatively scheduled for 01/28/2025 pending clinical progression, may require inpatient SMG excision if not improving Assessment & Plan (01/07/2025 4:38 PM CDT): Hx of bilateral submandibular duct sialolithiasis c/b left SMG abscess s/p needle aspiration on 12/11, discharged on Augmentin and added ciprofloxacin returning with recurrence of neck mass and concern for repeat infection. S/p needle aspiration of 12cc purulent material in ED by ENT, sent for culture. Prior aspiration culture last admission grew upper respiratory osmar including strep anginosus. - ENT following - continue unasyn, stop clinda per abx stewardship as likely not needed at this time. Follow aspirate culture data and tailor abx as appropriate - warm compresses 3x daily - trial pilocarpine TID - Bilateral SMG excision tentatively scheduled for 01/28/2025 pending clinical progression, may require inpatient SMG excision if not improving Abscess 12/08/2024 Assessment & Plan (12/11/2024 11:27 AM CDT): Patient with a history of bilateral submandibular sialolithiasis and recurrent sialoadenitis s/p sialolithotomy to remove an impacted stone in distal left submandibular duct in 2019. Presented for left neck pain and swelling x4 days. WBC 12.7, CT neck showed left sialoadenitis with an associated rim enhancing abscess in the left neck and right sialolith -ENT consulted, appreciate recs -aspiration of left neck abscess at bedside -follow cultures: strep anginosus -request for US guided aspiration -radiology consulted for aspiration -superficial team attempted on 12/09 but unable to complete d/t inability to tolerate needles/needing to be sedated -US showed 4.0 cm rim-enhancing abscess/phlegmon in the left neck -deep team consulted and aspiration on 12/10 with sedation - 5cc fluid removed -Aerobic/anaerobic, fungal, AFB pending -IV Unasyn -discussed with ENT and should get 10-14 days of abx -Pain control, pt would like to avoid opioids Assessment & Plan (12/10/2024 12:59 PM CDT): Patient with a history of bilateral submandibular sialolithiasis and recurrent sialoadenitis s/p sialolithotomy to remove an impacted stone in distal left submandibular duct in 2019. Presented for left neck pain and swelling x4 days. WBC 12.7, CT neck showed left sialoadenitis with an associated rim enhancing abscess in the left neck and right sialolith -ENT consulted, appreciate recs -aspiration of left neck abscess at bedside -follow cultures: strep anginosus -request for US guided aspiration -radiology consulted for aspiration -superficial team attempted on 12/09 but unable to complete d/t inability to tolerate needles/needing to be sedated -US showed 4.0 cm rim-enhancing abscess/phlegmon in the left neck -deep team consulted and planning for aspiration on 12/10 with sedation -Aerobic/anaerobic, fungal, AFB requested -IV Unasyn -Pain control, pt would like to avoid opioids Assessment & Plan (12/09/2024 3:56 PM CDT): Patient with a history of bilateral submandibular sialolithiasis and recurrent sialoadenitis s/p sialolithotomy to remove an impacted stone in distal left submandibular duct in 2019. Presented for left neck pain and swelling x4 days. WBC 12.7, CT neck showed left sialoadenitis with an associated rim enhancing abscess in the left neck and right sialolith -ENT consulted, appreciate recs -aspiration of left neck abscess at bedside -follow cultures: currently with gram + cocci -request for US guided aspiration -radiology consulted for aspiration -superficial team attempted on 12/09 but unable to complete d/t inability to tolerate needles/needing to be sedated -deep team consulted and planning for aspiration on 12/10 with sedation -Aerobic/anaerobic, fungal, AFB requested -IV Unasyn -Pain control Assessment & Plan (12/08/2024 4:30 AM CDT): Patient with a history of bilateral submandibular sialolithiasis and recurrent sialoadenitis s/p sialolithotomy to remove an impacted stone in distal left submandibular duct in 2019 -Presented for left neck pain and swelling x4 days -WBC 12.7, CT neck showed left sialoadenitis with an associated rim enhancing abscess in the left neck and right sialolith Plan: -Discussed with ENT resident at bedside who will attempt aspiration of left neck abscess however they will not be aggressive with aspiration. Infection will need to improve for him to get eventual surgery -IV Unasyn -Pain control -NPO for now until evaluated by day ENT team per resident Sialadenitis 12/08/2024 Assessment & Plan (01/10/2025 4:41 PM CDT): Hx of bilateral submandibular duct sialolithiasis c/b left SMG abscess s/p needle aspiration on 12/11, discharged on Augmentin and added ciprofloxacin returning with recurrence of neck mass and concern for repeat infection. S/p needle aspiration of 12cc purulent material in ED by ENT, sent for culture. Prior aspiration culture last admission grew upper respiratory osmar including strep anginosus. - ENT consult appreciated - continue unasyn, stop clinda per abx stewardship as likely not needed at this time. - aspirate culture from 01/07- Fusobacterium nucleatum , Beta lactamase negative - cultures from repeat I&D on 01/08- Few Coagulase negative Staphylococcus species - warm compresses 3x daily - trial pilocarpine TID - ID conuslt appreciated- dc-ed on Augmentin and Doxycyline until surgery with further evaluation for abx need after surgery - Bilateral SMG excision scheduled for 01/15/2025 outpatient with ENT Assessment & Plan (01/10/2025 7:35 AM CDT): Hx of bilateral submandibular duct sialolithiasis c/b left SMG abscess s/p needle aspiration on 12/11, discharged on Augmentin and added ciprofloxacin returning with recurrence of neck mass and concern for repeat infection. S/p needle aspiration of 12cc purulent material in ED by ENT, sent for culture. Prior aspiration culture last admission grew upper respiratory osmar including strep anginosus. - ENT consult appreciated - continue unasyn, stop clinda per abx stewardship as likely not needed at this time. - aspirate culture from 01/07- no growth to date - cultures from repeat I&D on 01/08- no growth to date - warm compresses 3x daily - trial pilocarpine TID - Bilateral SMG excision tentatively scheduled for 01/28/2025 pending clinical progression, may require inpatient SMG excision if not improving Assessment & Plan (01/08/2025 2:02 PM CDT): Hx of bilateral submandibular duct sialolithiasis c/b left SMG abscess s/p needle aspiration on 12/11, discharged on Augmentin and added ciprofloxacin returning with recurrence of neck mass and concern for repeat infection. S/p needle aspiration of 12cc purulent material in ED by ENT, sent for culture. Prior aspiration culture last admission grew upper respiratory osmar including strep anginosus. - ENT consult appreciated - continue unasyn, stop clinda per abx stewardship as likely not needed at this time. - aspirate culture from 01/07- no growth to date - fw cultures from repeat I&D on 01/08 - warm compresses 3x daily - trial pilocarpine TID - Bilateral SMG excision tentatively scheduled for 01/28/2025 pending clinical progression, may require inpatient SMG excision if not improving Assessment & Plan (01/07/2025 4:38 PM CDT): Hx of bilateral submandibular duct sialolithiasis c/b left SMG abscess s/p needle aspiration on 12/11, discharged on Augmentin and added ciprofloxacin returning with recurrence of neck mass and concern for repeat infection. S/p needle aspiration of 12cc purulent material in ED by ENT, sent for culture. Prior aspiration culture last admission grew upper respiratory osmar including strep anginosus. - ENT following - continue unasyn, stop clinda per abx stewardship as likely not needed at this time. Follow aspirate culture data and tailor abx as appropriate - warm compresses 3x daily - trial pilocarpine TID - Bilateral SMG excision tentatively scheduled for 01/28/2025 pending clinical progression, may require inpatient SMG excision if not improving Assessment & Plan (12/11/2024 8:11 AM CDT): -See above Assessment & Plan (12/10/2024 8:17 AM CDT): -See above Assessment & Plan (12/09/2024 3:56 PM CDT): -See above Assessment & Plan (12/08/2024 4:30 AM CDT): -See above Tobacco use 12/08/2024 Assessment & Plan (12/11/2024 8:11 AM CDT): -Nicotine patch -Tobacco cessation education Assessment & Plan (12/10/2024 8:17 AM CDT): -Nicotine patch -Tobacco cessation education Assessment & Plan (12/09/2024 3:56 PM CDT): -Nicotine patch -Tobacco cessation education Assessment & Plan (12/08/2024 4:30 AM CDT): -Nicotine patch -Tobacco cessation education Social History Tobacco Use Types Packs/Day Years Used Date Smoking Tobacco: Every Day Cigarettes 0.8 22.5 Started: 2002 Passive Smoke Exposure: Past Smokeless Tobacco: Never Tobacco Cessation:Ready to Q uit: Not Asked; Counseling Given: Not Answered [facility] [employer] Answer Date Recorded In the past 12 months has th e [employer] gas, oil, or water [employer] threatened to shut off services in your [...] often do you attend chur ch or restorationism services? Never 01/08/2025 Do you belong to any clubs o r organizations such as denominational groups, unions, fraternal or athletic groups, or [...] any time in the past 12 m [facility], were you homeless or living in a halfway (including now)? No 01/08/2025 Personal Safety Answer [...] Sign Reading Time Taken Comments Blood Pressure 126/90 01/15/2025 2:30 PM CDT Pulse 69 01/15/2025 3:50 PM CDT Temperature 36.5 C (97.7 F) 01/15/2025 12:45 PM CDT Respiratory Rate 9 01/15/2025 2:30 PM CDT Oxygen Saturation 99% 01/15/2025 3:50 PM CDT Inhaled Oxygen Concentration - - Weight 63.1 kg (139 lb 1.8 oz) 01/15/2025 7:55 A M CDT Height 170.2 cm (5' 7) 01/11/2025 11:20 AM CDT Body Mass Index 21.79 01/11/2025 11:20 AM CDT Plan of Treatment Not on file Procedures Procedure Name Priority Date/Time Associated Diagnosis Comments AEROBIC AND ANAEROBIC CULTURE AND GRAM STAIN Routine 01/26/2025 3:22 PM CDT Abscess Abscess of skin of neck MYCOLOGY (FUNGAL) CULTURE Routine 01/26/2025 3:22 PM CDT Abscess Abscess of skin of neck SURGICAL PATHOLOGY Routine 01/15/2025 11:27 AM CDT Submandibular sialolithiasis Submandibular sialoadenitis Abscess of submandibular gland TX AN PROCEDURE PLACEHOLDER Routine 01/15/2025 10:00 AM CDT TX AN ELECTIVE ENDOTRACHEAL AIRWAY Routine 01/15/2025 10:00 AM CDT EXCISION SUBMANDIBULAR GLAND. 01/15/2025 9:33 AM CDT Submandibular sialolithiasis Submandibular sialoadenitis Abscess of submandibular gland EGFR Routine 01/08/2025 9:20 PM CDT DIFFERENTIAL AUTO Routine 01/08/2025 9:2 0 PM CDT BASIC METABOLIC PANEL Routine 01/08/2025 9:20 PM CDT CBC WITH AUTO DIFFERENTIAL Routine 01/08/2025 9:20 PM CDT AEROBIC AND ANAEROBIC CULTURE AND GRAM STAIN Routine 01/08/2025 2:27 PM CDT EGFR STAT 01/08/2025 8:59 AM CDT BASIC METABOLIC PANEL STAT 01/08/2025 8:59 AM CDT EGFR Routine 01/07/2025 6:47 AM CDT DIFFERENTIAL AUTO Routine 01/07/2025 6:4 7 AM CDT COMPREHENSIVE METABOLIC PANEL Routine 01/07/2025 6:47 AM CDT CBC WITH AUTO DIFFERENTIAL Routine 01/07/2025 6:47 AM CDT AEROBIC AND ANAEROBIC CULTURE AND GRAM STAIN STAT 01/07/2025 5:43 AM CDT EGFR Routine 12/10/2024 10:39 PM CDT DIFFERENTIAL AUTO Routine 12/10/2024 10:39 PM CDT BASIC METABOLIC PANEL Routine 12/10/2024 10:39 PM CDT CBC WITH AUTO DIFFERENTIAL Routine 12/10/2024 10:39 PM CDT US GUIDED ASPIRATION ABSCESS HEMATOMA CYST SOFT TISSUE IP Routine 12/10/2024 3:17 PM CDT CYTOLOGY Routine 12/10/2024 3:07 PM CDT Abscess AEROBIC AND ANAEROBIC CULTURE AND GRAM STAIN Routine 12/10/2024 2:00 PM CDT MYCOLOGY (FUNGAL) CULTURE AND STAIN Routine 12/10/2024 2:00 PM CDT MYCOBACTERIOLOGY AFB CULTURE AND ACID-FAST STAIN Routine 12/10/2024 2:00 PM CDT EGFR Routine 12/09/2024 9:05 PM CDT DIFFERENTIAL AUTO Routine 12/09/2024 9:0 5 PM CDT BASIC METABOLIC PANEL Routine 12/09/2024 9:05 PM CDT CBC WITH AUTO DIFFERENTIAL Routine 12/09/2024 9:05 PM CDT US SOFT TISSUE HEAD NECK ED Urgent/IP Urgent 12/09/2024 10:04 AM CDT EGFR Routine 12/09/2024 4:09 AM CDT CBC WITHOUT DIFFERENTIAL Routine 12/09/2024 4:09 AM CDT BASIC METABOLIC PANEL Routine 12/09/2024 4:09 AM CDT PROTIME-INR Routine 12/09/2024 4:09 AM CDT TX CRITICAL CARE ILL/INJURED PATIENT INIT 30-74 MIN Routine 12/08/2024 6:39 AM CDT AEROBIC AND ANAEROBIC CULTURE AND GRAM STAIN STAT 12/08/2024 6:00 AM CDT EGFR STAT 12/07/2024 9:43 PM CDT DIFFERENTIAL AUTO STAT 12/07/2024 9:4 3 PM CDT SEPSIS LACTATE WITH REFLEX STAT 12/07/2024 9:43 PM CDT COMPREHENSIVE METABOLIC PANEL STAT 12/07/2024 9:43 PM CDT CBC WITH AUTO DIFFERENTIAL STAT 12/07/2024 9:[address] SOFT TISSUE NECK W CONTRAST ED 12/07/2024 5:17 PM CDT EGFR STAT 12/06/2024 8:14 AM CDT DIFFERENTIAL AUTO STAT 12/06/2024 8:1 4 AM CDT COMPREHENSIVE METABOLIC PANEL STAT 12/06/2024 8:14 AM CDT CBC WITH AUTO DIFFERENTIAL STAT 12/06/2024 8:14 AM CDT from Last 3 Months Results * Aerobic and anaerobic culture and gram stain Abscess Neck, left (01/26/2025 3:22 PM CDT) Direct Specimen Exam Stain: Moderate polymorphonuclear leukocytes seen. No organisms seen. Report Final Report: No growth [facility] Abscess (Neck, left) 01/26/2025 3:22 PM CDT 01/26/2025 3:55 PM CDT Narrative [facility] - 01/29/2025 12:18 PM CDT Neck abscess Testing performed by [facility] Microbiology Laboratory ([phone]) Specimens submitted from normally sterile body sites will have all bacterial morphotypes identified. Specimens that contain grossly mixed osmar and/or are from body sites that are not normally sterile will be examined for Staphylococcus aureus, Pseudomonas aeruginosa, beta-hemolytic strep, vancomycin-resistant Enterococcus, Bacteroides, Parabacteroides, Clostridium perfringens and fungus. If any of these are isolated, the organism will be reported. Current interpretive data was last revised on 2019. Stacie Can MD LAB MICROBIOLOGY - GEN ERAL ORDERABLES Final Result [facility] [place] [address] * Surgical pathology (01/15/2025 11:27 AM CDT) Tissue (Sublingual/Subma ndibular Gland) 01/15/2025 11:27 AM CDT Narrative PATHOLOGY [facility] - 01/20/2025 12:11 PM CDT EPIC results best viewed via link to PDF [facility] of Surgical Pathology One [facility], [place] [address] Note to Patients: This report may contain a detailed description of human tissue sent by a health care provider to the laboratory for pathologic evaluation. The content of this report is essential for diagnosis and may provide important critical findings. This information may be unfamiliar to patients to review without a medical professional present. It is advised that the patient review this report in the presence of a health care provider who can answer questions and explain the details. SURGICAL PATHOLOGY REPORT FINAL Patient Name: CRYSTAL BRUNO Gender: M : 1985 (Age: 39) Address: [address] [place], [place] [id number] Hospital #: [id number] Taken:01/15/2025 Received:01/15/2025 Reported: 01/20/2025 Patient Type: [facility] Service: Surgery Location: Physician(s): Stacie Can M.D. 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 Annette Chopra MD, PhD Report Electronically Reviewed and Signed Out By Annette Chopra MD, PhD 01/20/2025 12:11:43 Gaudencio Belcher M.D. History: The patient is a 39-year-old man with history of submandibular sialoadenitis and sialolithiasis. Operative Procedure: Excision left submandibular gland. Specimen(s) Received: A: Left submandibular gland Gross Description: Received in formalin labeled with the patient's identifiers and left submandibular gland is a 6 g, 3 x 3 x 1.5 cm lobular portion of pink-mcgill tissue. The gland is inked and sectioned. There is a yellow-mcgill lobular cut surface with some dusky discoloration and no obvious calculus. Sections are submitted labeled A 1 to A4. Jar 1. /01/18/2025 11:00 PA(s): Ewa Roberts, MS, PA (ASCP) By this signature, I attest that the above diagnosis is based upon my personal examination of the slides(and/or other material). Addenda/Procedures The performance characteristics of some immunohistochemical stains, fluorescence in-situ hybridization tests and immunophenotyping by flow cytometry cited in this report (if any) were determined by the Surgical Pathology and Flow Cytometry Departments at [facility] as part of an ongoing bottle house quality control technician program and in compliance with federally mandated regulations drawn from the Clinical Laboratory Improvement Act of 1988 (CLIA '88). Some of these tests rely on the use of analyte specific reagents and are subject to specific labeling requirements by the US Food and Drug Administration. Such diagnostic tests may only be performed in a facility that is certified by the Department of Health and Human Services as a high complexity laboratory under CLIA '88. The FDA has determined that such clearance or approval is not necessary. This test is used for clinical purposes. It should not be regarded as investigational or for research. Nevertheless, federal rules concerning the medical use of analyte specific reagents require that the following disclaimer be attached to the report: This test was developed and its performance characteristics determined by the Surgical Pathology and Flow Cytometry Departments of [facility]. It has not been cleared or approved by the U. S. Food and Drug Administration. IMAGES AND SCANNED DOCUMENTS, IF INCLUDED, ONLY VIEWABLE IN PDF VERSION OF REPORT Stacie Can MD LAB PATHOLOGY ORDERABL ES Final Result PATHOLOGY [facility] 3rd Floor [place], [place] [phone] * TX AN ELECTIVE ENDOTRACHEAL AIRWAY, TX AN PROCEDURE PLACEHOLDER (01/15/2025 10:00 AM CDT) Narrative Tristan Lamas CRNA - 01/15/2025 10:00 AM CDT Tristan Lamas CRNA 01/15/2025 10:01 AM Airway Patient location: OR Urgency: elective Indications for airway management: anesthesia Difficult airway: no Airway prep: Preoxygenated: yes Patient position: sniffing Mask difficulty assessment: 0 - not attempted Spontaneous ventilation during airway: absent Sedation level during airway: GA Final airway details: Final airway type: endotracheal airway Tube type: ETT ETT size: 7.5 mm Cuffed: yes Technique used for successful ETT placement: video laryngoscopy Devices/Methods used in placement: intubating stylet Insertion site: oral Blade type: Foreign Video blade type: Michael Blade size: 4 Cormack-Lehane (video): grade I - full view of glottis Initial cuff pressure: 28 cm H2O Cuff volume: 7 mL Cuff inflated with: air ETT to gums: 22 cm Placement verified by: auscultation and CO2 detection Airway secured with: silk tape Number of attempts: 1 us Bharat Jasmine MD ANESTHESIA ORDERABLES Final Result * eGFR (01/08/2025 9:20 PM CDT) eGFR >90 >=60 mL/min/1. 73 m2 Comment: Interpretive Data Reference Interval Normal >/= 90 mL/min/1.73m2 Mildly decreased* 60 - 89 mL/min/1.73m2 Mildly to moderately decreased 45 - 59 mL/min/1.73m2 Moderately to severely decreased 30 - 44 mL/min/1.73m2 Severely decreased 15 - 29 mL/min/1.73m2 Kidney Failure < 15 mL/min/1.73m2 *Relative to young adult level Estimated glomerular filtration rate is determined by the 2020 CKD-EPI equation recommended by the National Kidney Foundation (A Unifying Approach to GFR Estimation: Recommendations of the NKF-ASK Task Force on Reassessing the Inclusion of Race in Diagnosing Kidney Disease, JASN 2020). The CKD-EPI equation should not be used for patients with unstable renal function and has not been validated in children and those over 70. Current interpretive data was last reviewed 2021. Blood 01/08/2025 9:20 PM CDT 01/08/2025 9:59 PM CDT us Cyn Levy MD LAB BLOOD ORDERABLES F inal Result [facility] Department [place] [address] * (ABNORMAL) Differential, auto (01/08/2025 9:20 PM CDT) Neutrophil abs 4.64 1.50 - 6.50 K/cumm Imm gran abs 0.03 0.00 - 0.10 K/cumm [facility] Lymphocyte abs 2.28 0.80 - 3.30 K/cumm [facility] Monocyte abs 0.62 0.20 - 0.80 K/cumm [facility] Eosinophil abs 0.56(H) 0.00 - 0.50 K/cumm [facility] Basophil abs 0.11(H) 0.00 - 0.10 K/cumm [facility] Neutrophil pct 56.3 % [facility] Comment: Interpretive Data Percent cell count reference ranges are not reported, since discordance with absolute values may lead to misinterpretation of CBC data. Current Interpretive Data was last revised on 2017. Imm gran pct 0.4 % [facility] Comment: Interpretive Data Percent cell count reference ranges are not reported, since discordance with absolute values may lead to misinterpretation of CBC data. Current Interpretive Data was last revised on 2017. Lymphocyte pct 27.7 % [facility] Comment: Interpretive Data Percent cell count reference ranges are not reported, since discordance with absolute values may lead to misinterpretation of CBC data. Current Interpretive Data was last revised on 2017. Monocyte pct 7.5 % [facility] Comment: Interpretive Data Percent cell count reference ranges are not reported, since discordance with absolute values may lead to misinterpretation of CBC data. Current Interpretive Data was last revised on 2017. Eosinophil pct 6.8 % [facility] Comment: Interpretive Data Percent cell count reference ranges are not reported, since discordance with absolute values may lead to misinterpretation of CBC data. Current Interpretive Data was last revised on 2017. Basophil pct 1.3 % [facility] Comment: Interpretive Data Percent cell count reference ranges are not reported, since discordance with absolute values may lead to misinterpretation of CBC data. Current Interpretive Data was last revised on 2017. Blood 01/08/2025 9:20 PM CDT 01/08/2025 10:01 PM CDT Cyn Levy MD LAB BLOOD ORDERABLES F inal Result Performing Organization Address City/[facility]/ZIP Co de Phone Number [facility] Department [place] [address] * CBC with auto differential (01/08/2025 9:20 PM CDT) [facility] WBC 8.24 3.80 - 9.90 K/cumm Hgb 13.4 13.0 - 17.5 g/dL [facility] Hct 39.6 38.9 - 50.3 % [facility] Plt 242 150 - 400 K/cumm [facility] Comment:No clot detected in sample. MPV 10.7 9.1 - 12.3 fL [facility] RBC 4.35 4.30 - 5.80 M/cumm [facility] MCV 91.0 81.3 - 96.4 fL [facility] MCH 30.8 27.1 - 33.3 pg [facility] MCHC 33.8 32.3 - 35.7 g/dL [facility] RDW CV 13.0 11.1 - 14.9 % [facility] RDW SD 43.5 35.7 - 48.1 fL [facility] NRBC abs 0.00 0.00 - 0.01 K/cumm [facility] Blood 01/08/2025 9:20 PM CDT 01/08/2025 10:01 PM CDT Cyn Levy MD LAB BLOOD ORDERABLES F inal Result [facility] Department [place] [address] * Basic metabolic panel (01/08/2025 9:20 PM CDT) [facility] Sodium 140 135 - 145 mmol/L Potassium, pl 4.2 3.3 - 4.9 mmol/L [facility] Comment:Hemolyzed; Potassium value may be falsely elevated by as much as 0.6-1.0 mmol/L. Suggest redraw and reanalysis. Chloride 103 97 - 110 mmol/L [facility] CO2 29 22 - 32 mmol/L [facility] Anion gap 8 2 - 15 mmol/L [facility] BUN 15 6 - 25 mg/dL [facility] Creatinine 0.83 0.80 - 1.30 mg/dL [facility] Glucose 88 70 - 199 mg/dL [facility] Comment: Interpretive Data Fasting glucose >/= 126 mg/dl is diagnostic for diabetes. Fasting is defined as no caloric intake for at least 8 hours. Fasting glucose between 100 mg/dl to 125 mg/dl is diagnostic of prediabetes. In a patient with classic symptoms of hyperglycemia or hyperglycemic crisis, a random glucose >/= 200 mg/dl is diagnostic for diabetes. In the absence of unequivocal hyperglycemia, results should be confirmed by repeat testing. The classification and Diagnosis of Diabetes Diabetes Care 2021; 46: S19-S40. Current interpretive data was last revised 2022. Calcium 9.2 8.5 - 10.3 mg/dL [facility] Blood 01/08/2025 9:20 PM CDT 01/08/2025 9:59 PM CDT us Cyn Levy MD LAB BLOOD ORDERABLES F inal Result [facility] [place] [address] * (ABNORMAL) Aerobic and anaerobic culture and gram stain Abscess Neck (01/08/2025 2:27 PM CDT) Direct Specimen Exam Stain: Moderate polymorphonuclear leukocytes seen. No organisms seen. Report Final Report: Few Coagulase negative Staphylococcus species No further workup. (.) [facility] Organism COAGULASE NEGATIVE STAPHYLOCOCCUS SPECIES [facility] Abscess (Neck) 01/08/2025 2: 27 PM CDT 01/08/2025 3:02 PM CDT Narrative [facility] - 01/11/2025 1:58 PM CDT Specimen received on an ESwab. Testing performed by [facility] Microbiology Laboratory ([phone]) Specimens submitted from normally sterile body sites will have all bacterial morphotypes identified. Specimens that contain grossly mixed osmar and/or are from body sites that are not normally sterile will be examined for Staphylococcus aureus, Pseudomonas aeruginosa, beta-hemolytic strep, vancomycin-resistant Enterococcus, Bacteroides, Parabacteroides, Clostridium perfringens and fungus. If any of these are isolated, the organism will be reported. Current interpretive data was last revised on 2019. us Cyn Levy MD LAB MICROBIOLOGY - GEN ERAL ORDERABLES Final Result [facility] [place] [address] * eGFR (01/08/2025 8:59 AM CDT) eGFR >90 >=60 mL/min/1. 73 m2 Comment: Interpretive Data Reference Interval Normal >/= 90 mL/min/1.73m2 Mildly decreased* 60 - 89 mL/min/1.73m2 Mildly to moderately decreased 45 - 59 mL/min/1.73m2 Moderately to severely decreased 30 - 44 mL/min/1.73m2 Severely decreased 15 - 29 mL/min/1.73m2 Kidney Failure < 15 mL/min/1.73m2 *Relative to young adult level Estimated glomerular filtration rate is determined by the 2020 CKD-EPI equation recommended by the National Kidney Foundation (A Unifying Approach to GFR Estimation: Recommendations of the NKF-ASK Task Force on Reassessing the Inclusion of Race in Diagnosing Kidney Disease, JASN 2020). The CKD-EPI equation should not be used for patients with unstable renal function and has not been validated in children and those over 70. Current interpretive data was last reviewed 2021. Blood 01/08/2025 8:59 AM CDT 01/08/2025 9:50 AM CDT Cyn Levy MD LAB BLOOD ORDERABLES F [facility]al [facility] [place] [address] * Basic metabolic panel (01/08/2025 8:59 AM CDT) Pathologist [facility] Sodium 139 135 - 145 mmol/L Potassium, pl 4.0 3.3 - 4.9 mmol/L [facility] Chloride 102 97 - 110 mmol/L [facility] CO2 29 22 - 32 mmol/L [facility] Anion gap 8 2 - 15 mmol/L [facility] BUN 11 6 - 25 mg/dL [facility] Creatinine 0.80 0.80 - 1.30 mg/dL [facility] Glucose 84 70 - 199 mg/dL [facility] Comment: Interpretive Data Fasting glucose >/= 126 mg/dl is diagnostic for diabetes. Fasting is defined as no caloric intake for at least 8 hours. Fasting glucose between 100 mg/dl to 125 mg/dl is diagnostic of prediabetes. In a patient with classic symptoms of hyperglycemia or hyperglycemic crisis, a random glucose >/= 200 mg/dl is diagnostic for diabetes. In the absence of unequivocal hyperglycemia, results should be confirmed by repeat testing. The classification and Diagnosis of Diabetes Diabetes Care 2021; 46: S19-S40. Current interpretive data was last revised 2022. Calcium 9.9 8.5 - 10.3 mg/dL [facility] Blood 01/08/2025 8:59 AM CDT 01/08/2025 9:50 AM CDT us Cyn Levy MD LAB BLOOD ORDERABLES F inal Result [facility] Department [place] [address] * eGFR (01/07/2025 6:47 AM CDT) [facility] eGFR >90 >=60 mL/min/1. 73 m2 Comment: Interpretive Data Reference Interval Normal >/= 90 mL/min/1.73m2 Mildly decreased* 60 - 89 mL/min/1.73m2 Mildly to moderately decreased 45 - 59 mL/min/1.73m2 Moderately to severely decreased 30 - 44 mL/min/1.73m2 Severely decreased 15 - 29 mL/min/1.73m2 Kidney Failure < 15 mL/min/1.73m2 *Relative to young adult level Estimated glomerular filtration rate is determined by the 2020 CKD-EPI equation recommended by the National Kidney Foundation (A Unifying Approach to GFR Estimation: Recommendations of the NKF-ASK Task Force on Reassessing the Inclusion of Race in Diagnosing Kidney Disease, JASN 202). The CKD-EPI equation should not be used for patients with unstable renal function and has not been validated in children and those over 70. Current interpretive data was last reviewed 2021. Blood 01/07/2025 6:47 AM CDT 01/07/2025 6:52 AM CDT us Fracisco Reyes MD PhD LAB BLOOD ORDERABLES Final Resul t [facility] [place] [address] * Differential, auto (01/07/2025 6:47 AM CDT) Neutrophil abs 5.34 1.50 - 6.50 K/cumm Imm gran abs 0.01 0.00 - 0.10 K/cumm [facility] Lymphocyte abs 1.58 0.80 - 3.30 K/cumm [facility] Monocyte abs 0.44 0.20 - 0.80 K/cumm [facility] Eosinophil abs 0.45 0.00 - 0.50 K/cumm [facility] Basophil abs 0.09 0.00 - 0.10 K/cumm [facility] Neutrophil pct 67.5 % [facility] Comment: Interpretive Data Percent cell count reference ranges are not reported, since discordance with absolute values may lead to misinterpretation of CBC data. Current Interpretive Data was last revised on 2017. Imm gran pct 0.1 % [facility] Comment: Interpretive Data Percent cell count reference ranges are not reported, since discordance with absolute values may lead to misinterpretation of CBC data. Current Interpretive Data was last revised on 2017. Lymphocyte pct 20.0 % [facility] Comment: Interpretive Data Percent cell count reference ranges are not reported, since discordance with absolute values may lead to misinterpretation of CBC data. Current Interpretive Data was last revised on 2017. Monocyte pct 5.6 % [facility] Comment: Interpretive Data Percent cell count reference ranges are not reported, since discordance with absolute values may lead to misinterpretation of CBC data. Current Interpretive Data was last revised on 2017. Eosinophil pct 5.7 % [facility] Comment: Interpretive Data Percent cell count reference ranges are not reported, since discordance with absolute values may lead to misinterpretation of CBC data. Current Interpretive Data was last revised on 2017. Basophil pct 1.1 % [facility] Comment: Interpretive Data Percent cell count reference ranges are not reported, since discordance with absolute values may lead to misinterpretation of CBC data. Current Interpretive Data was last revised on 2017. Blood 01/07/2025 6:47 AM CDT 01/07/2025 6:52 AM CDT us Fracisco Reyes MD PhD LAB BLOOD ORDERABLES Final Resul t [facility] [place] [address] * (ABNORMAL) CBC with auto differential (01/07/2025 6:47 AM CDT) WBC 7.91 3.80 - 9.90 K/cumm Hgb 13.7 13.0 - 17.5 g/dL [facility] Hct 41.4 38.9 - 50.3 % [facility] Plt 114(L) 150 - 400 K/cumm [facility] MPV 11.2 9.1 - 12.3 fL [facility] RBC 4.52 4.30 - 5.80 M/cumm [facility] MCV 91.6 81.3 - 96.4 fL [facility] MCH 30.3 27.1 - 33.3 pg [facility] MCHC 33.1 32.3 - 35.7 g/dL [facility] RDW CV 13.2 11.1 - 14.9 % [facility] RDW SD 44.7 35.7 - 48.1 fL [facility] NRBC abs 0.00 0.00 - 0.01 K/cumm [facility] Blood 01/07/2025 6:47 AM CDT 01/07/2025 6:52 AM CDT us Fracisco Reyes MD PhD LAB BLOOD ORDERABLES Final Resul t [facility] [place] [address] * (ABNORMAL) Comprehensive metabolic panel (01/07/2025 6:47 AM CDT) Sodium 138 135 - 145 mmol/L Potassium, pl 5.5(H) 3.3 - 4.9 mmol/L [facility] Comment:Hemolyzed; Potassium value may be falsely elevated by as much as 1.1-1.6 mmol/L. Suggest redraw and reanalysis. Chloride 100 97 - 110 mmol/L [facility] CO2 29 22 - 32 mmol/L [facility] Anion gap 9 2 - 15 mmol/L [facility] BUN 13 6 - 25 mg/dL [facility] Creatinine 0.79(L) 0.80 - 1.30 mg/dL [facility] Glucose 89 70 - 199 mg/dL [facility] Comment: Interpretive Data Fasting glucose >/= 126 mg/dl is diagnostic for diabetes. Fasting is defined as no caloric intake for at least 8 hours. Fasting glucose between 100 mg/dl to 125 mg/dl is diagnostic of prediabetes. In a patient with classic symptoms of hyperglycemia or hyperglycemic crisis, a random glucose >/= 200 mg/dl is diagnostic for diabetes. In the absence of unequivocal hyperglycemia, results should be confirmed by repeat testing. The classification and Diagnosis of Diabetes Diabetes Care 2021; 46: S19-S40. Current interpretive data was last revised 2022. Calcium 9.4 8.5 - 10.3 mg/dL [facility] Bilirubin, total 0.5 0.1 - 1.2 mg/dL [facility] Protein, pl 7.9 6.5 - 8.5 g/dL [facility] Albumin 4.1 3.5 - 5.0 g/dL [facility] Alk phos 68 40 - 130 Units/L [facility] Comment:Hemolyzed; result ma y be falsely decreased ALT 23 7 - 55 Units/L [facility] AST 46 10 - 50 Units/L [facility] Comment:Hemolyzed; result ma y be falsely elevated Blood 01/07/2025 6:47 AM CDT 01/07/2025 6:52 AM CDT Fracisco Reyes MD PhD LAB BLOOD ORDERABLES Final Resul t [facility] [place] [address] * (ABNORMAL) Aerobic and anaerobic culture and gram stain Abscess Neck (01/07/2025 5:43 AM CDT) Direct Specimen Exam Stain: Abundant polymorphonuclear leukocytes seen. No organisms seen. 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 Testing performed by [facility] Microbiology Laboratory ([phone]) Specimens submitted from normally sterile body sites will have all bacterial morphotypes identified. Specimens that contain grossly mixed osmar and/or are from body sites that are not normally sterile will be examined for Staphylococcus aureus, Pseudomonas aeruginosa, beta-hemolytic strep, vancomycin-resistant Enterococcus, Bacteroides, Parabacteroides, Clostridium perfringens and fungus. If any of these are isolated, the organism will be reported. Current interpretive data was last revised on 2019. us Fracisco Reyes MD PhD LAB MICROBIOLOGY - GENERAL ORDER JOEY Final Result Performing Organization Address City/[facility] Co de Phone Number [facility] [place] [address] * eGFR (12/10/2024 10:39 PM CDT) eGFR >90 >=60 mL/min/1. 73 m2 Comment: Interpretive Data Reference Interval Normal >/= 90 mL/min/1.73m2 Mildly decreased* 60 - 89 mL/min/1.73m2 Mildly to moderately decreased 45 - 59 mL/min/1.73m2 Moderately to severely decreased 30 - 44 mL/min/1.73m2 Severely decreased 15 - 29 mL/min/1.73m2 Kidney Failure < 15 mL/min/1.73m2 *Relative to young adult level Estimated glomerular filtration rate is determined by the 2020 CKD-EPI equation recommended by the National Kidney Foundation (A Unifying Approach to GFR Estimation: Recommendations of the NKF-ASK Task Force on Reassessing the Inclusion of Race in Diagnosing Kidney Disease, JASN 2020). The CKD-EPI equation should not be used for patients with unstable renal function and has not been validated in children and those over 70. Current interpretive data was last reviewed 2021. Blood 12/10/2024 10:3 9 PM CDT 12/10/2024 11:44 PM CDT us Nate ROSENTHAL LAB BLOOD ORDERABL ES Final Result Performing Organization Address City/[facility]/ZIP Co de Phone Number [facility] [place] [address] * (ABNORMAL) Differential, auto (12/10/2024 10:39 PM CDT) Neutrophil abs 7.49(H) 1.50 - 6.50 K/cumm Imm gran abs 0.04 0.00 - 0.10 K/cumm [facility] Lymphocyte abs 2.27 0.80 - 3.30 K/cumm [facility] Monocyte abs 0.85(H) 0.20 - 0.80 K/cumm [facility] Eosinophil abs 0.24 0.00 - 0.50 K/cumm [facility] Basophil abs 0.10 0.00 - 0.10 K/cumm [facility] Neutrophil pct 68.1 % [facility] Comment: Interpretive Data Percent cell count reference ranges are not reported, since discordance with absolute values may lead to misinterpretation of CBC data. Current Interpretive Data was last revised on 2017. Imm gran pct 0.4 % [facility] Comment: Interpretive Data Percent cell count reference ranges are not reported, since discordance with absolute values may lead to misinterpretation of CBC data. Current Interpretive Data was last revised on 2017. Lymphocyte pct 20.7 % [facility] Comment: Interpretive Data Percent cell count reference ranges are not reported, since discordance with absolute values may lead to misinterpretation of CBC data. Current Interpretive Data was last revised on 2017. Monocyte pct 7.7 % [facility] Comment: Interpretive Data Percent cell count reference ranges are not reported, since discordance with absolute values may lead to misinterpretation of CBC data. Current Interpretive Data was last revised on 2017. Eosinophil pct 2.2 % [facility] Comment: Interpretive Data Percent cell count reference ranges are not reported, since discordance with absolute values may lead to misinterpretation of CBC data. Current Interpretive Data was last revised on 2017. Basophil pct 0.9 % [facility] Comment: Interpretive Data Percent cell count reference ranges are not reported, since discordance with absolute values may lead to misinterpretation of CBC data. Current Interpretive Data was last revised on 2017. Blood 12/10/2024 10:3 9 PM CDT 12/10/2024 11:44 PM CDT us Nate ROSENTHAL LAB BLOOD ORDERABL ES Final Result [facility] [place] [address] * (ABNORMAL) CBC with auto differential (12/10/2024 10:39 PM CDT) [facility] WBC 10.99(H) 3.80 - 9.90 K/cumm Hgb 13.1 13.0 - 17.5 g/dL [facility] Hct 38.6(L) 38.9 - 50.3 % [facility] Plt 244 150 - 400 K/cumm [facility] MPV 10.8 9.1 - 12.3 fL [facility] RBC 4.23(L) 4.30 - 5.80 M/cumm [facility] MCV 91.3 81.3 - 96.4 fL [facility] MCH 31.0 27.1 - 33.3 pg [facility] MCHC 33.9 32.3 - 35.7 g/dL [facility] RDW CV 13.0 11.1 - 14.9 % [facility] RDW SD 43.8 35.7 - 48.1 fL [facility] NRBC abs 0.00 0.00 - 0.01 K/cumm [facility] Blood 12/10/2024 10:3 9 PM CDT 12/10/2024 11:44 PM CDT us Nate ROSENTHAL LAB BLOOD ORDERABL ES Final Result [facility] Department [place] [address] * Basic metabolic panel (12/10/2024 10:39 PM CDT) [facility] Sodium 141 135 - 145 mmol/L Potassium, pl 4.0 3.3 - 4.9 mmol/L [facility] Chloride 100 97 - 110 mmol/L [facility] CO2 30 22 - 32 mmol/L [facility] Anion gap 11 2 - 15 mmol/L [facility] BUN 17 6 - 25 mg/dL [facility] Creatinine 0.85 0.80 - 1.30 mg/dL [facility] Glucose 108 70 - 199 mg/dL [facility] Comment: Interpretive Data Fasting glucose >/= 126 mg/dl is diagnostic for diabetes. Fasting is defined as no caloric intake for at least 8 hours. Fasting glucose between 100 mg/dl to 125 mg/dl is diagnostic of prediabetes. In a patient with classic symptoms of hyperglycemia or hyperglycemic crisis, a random glucose >/= 200 mg/dl is diagnostic for diabetes. In the absence of unequivocal hyperglycemia, results should be confirmed by repeat testing. The classification and Diagnosis of Diabetes Diabetes Care 2021; 46: S19-S40. Current interpretive data was last revised 2022. Calcium 9.4 8.5 - 10.3 mg/dL [facility] Blood 12/10/2024 10:3 9 PM CDT 12/10/2024 11:44 PM CDT us Nate ROSENTHAL LAB BLOOD ORDERABL ES Final Result [facility] [place] [address] * US Guided Aspiration Abscess Hematoma Cyst Soft Tissue (12/10/2024 3:17 PM CDT) Anatomical Region Laterality Modality Entire body N/A X-Ray Angiograph y 12/10/2024 3:18 PM CDT Impressions 12/10/2024 3:55 PM CDT 1. Successful ultrasound-guided fluid aspiration of left neck abscess/phlegmon. 2. Please see separate laboratory results for final interpretation. Dictated by: Roxy Caal MD, MPH The radiology attending physician has personally reviewed this study, and had reviewed and/or edited this written report and agrees with it. Electronically signed by: Hoang Padron M.D. Narrative 12/10/2024 3:55 PM CDT EXAMINATION: ULTRASOUND-GUIDED FLUID ASPIRATION HISTORY: 39-year-old male with bilateral submandibular duct sialolith size is complicated by acute left submandibular gland sialoadenitis with abscess formation. COMPARISON: CT 12/07/2024, ultrasound 12/09/2024 FINDINGS: Sonographic evaluation of the left neck is significant for a heterogenous and complex cystic and solid appearing fluid collection/phlegmon in the left neck with associated peripheral hyperemia but no internal color flow TECHNIQUE: The procedure for ultrasound-guided fluid aspiration was explained to and discussed with the patient. Risks were explained to include, but not be limited to, hemorrhage, infection, injury to adjacent organs, non-diagnostic specimen and adverse reaction to medications administered. The patient voiced understanding and wished to proceed and signed the consent form. The patient's overlying skin was prepped and draped in the usual sterile fashion. PROCEDURAL SEDATION: Procedural sedation was administered under the attending physician's direction and continuous monitoring by a trained nurse specialist who was independent from those actually performing the procedure. Total monitored sedation time was 20 minutes. FLUID ASPIRATION: The fluid collection was located in left lateral neck and measured 3.5 cm x 4.0 cm x 2.5 cm. A site was localized for fluid aspiration. The patient's overlying skin was prepped and draped in the usual sterile fashion. Local anesthesia was achieved via subcutaneous and deep administration with 8 mL of Lidocaine 1%. Under realtime ultrasound guidance, the needle was advanced into the collection and 5 mL of purulent reddish-yellow fluid was obtained. The samples were sent to the laboratory for further analysis. The patient's skin was cleaned and dressed. The patient tolerated the entire procedure well without immediate complications. Dr. Hoang Padron M.D., the attending radiologist, was present from the beginning to the end of the procedure. Dr. Roxy Caal performed the procedure. Procedure Note Hoang Padron MD - 12/10/2024 EXAMINATION: ULTRASOUND-GUIDED FLUID ASPIRATION HISTORY: 39-year-old male with bilateral submandibular duct sialolith size is complicated by acute left submandibular gland sialoadenitis with abscess formation. COMPARISON: CT 12/07/2024, ultrasound 12/09/2024 FINDINGS: Sonographic evaluation of the left neck is significant for a heterogenous and complex cystic and solid appearing fluid collection/phlegmon in the left neck with associated peripheral hyperemia but no internal color flow TECHNIQUE: The procedure for ultrasound-guided fluid aspiration was explained to and discussed with the patient. Risks were explained to include, but not be limited to, hemorrhage, infection, injury to adjacent organs, non-diagnostic specimen and adverse reaction to medications administered. The patient voiced understanding and wished to proceed and signed the consent form. The patient's overlying skin was prepped and draped in the usual sterile fashion. PROCEDURAL SEDATION: Procedural sedation was administered under the attending physician's direction and continuous monitoring by a trained nurse specialist who was independent from those actually performing the procedure. Total monitored sedation time was 20 minutes. FLUID ASPIRATION: The fluid collection was located in left lateral neck and measured 3.5 cm x 4.0 cm x 2.5 cm. A site was localized for fluid aspiration. The patient's overlying skin was prepped and draped in the usual sterile fashion. Local anesthesia was achieved via subcutaneous and deep administration with 8 mL of Lidocaine 1%. Under realtime ultrasound guidance, the needle was advanced into the collection and 5 mL of purulent reddish-yellow fluid was obtained. The samples were sent to the laboratory for further analysis. The patient's skin was cleaned and dressed. The patient tolerated the entire procedure well without immediate complications. Dr. Hoang Padron M.D., the attending radiologist, was present from the beginning to the end of the procedure. Dr. Roxy Caal performed the procedure. IMPRESSION: 1. Successful ultrasound-guided fluid aspiration of left neck abscess/phlegmon. 2. Please see separate laboratory results for final interpretation. Dictated by: Roxy Caal MD, MPH The radiology attending physician has personally reviewed this study, and had reviewed and/or edited this written report and agrees with it. Electronically signed by: Hoang Padron M.D. Nate ROSENTHAL [facility] US PROCEDURES Final Result * Cytology (12/10/2024 3:07 PM CDT) Fluid (Fluid, NOS) 3:07 PM CDT Comment:Lt Cervical Abscess Aspiration H/o left sialoadenitis and a rim-enhancing abscess in the left neck Narrative PATHOLOGY [facility] - 12/14/2024 3:15 PM CDT EPIC results best viewed via link to PDF [facility] [place] [address] Note to Patients: This report may contain a detailed description of human tissue sent by a health care provider to the laboratory for pathologic evaluation. The content of this report is essential for diagnosis and may provide important critical findings. This information may be unfamiliar to patients to review without a medical professional present. It is advised that the patient review this report in the presence of a health care provider who can answer questions and explain the details. CYTOPATHOLOGY REPORT FINAL Patient Name: CRYSTAL BRUNO Gender: M : 1985 (Age: 39) Address: [address] [place], [place] [id number] Hospital #: [id number] Taken:12/10/2024 Received:12/11/2024 Reported: 12/14/2024 Patient Type: [facility] Inpatient Service: Radiology Location: [place] [address] Physician(s): Nitesh Christie PA FINAL DIAGNOSIS A. Left neck lesion, fine needle aspiration: - Negative for malignancy - Marked acute inflammation pamo/12/14/2024 08:12 By this signature, I attest that the above diagnosis is based upon my personal examination of the slides(and/or other material indicated in the diagnosis). Christ Whatley M.D. Report Electronically Reviewed and Signed Out By Christ Whatley M.D. 12/14/2024 15:15:30 Ryan Smith MS, CT(ASCP)PA Gross Description A. Left neck lesion, fine needle aspiration: 5 ml bloody fluid - 1 Pap stained ThinPrep. (ep) Clinical Diagnosis and History abscess REPORT IMAGES AND SCANNED DOCUMENTS, IF INCLUDED, ONLY VIEWABLE IN PDF VERSION OF REPORT The performance characteristics of some immunohistochemical stains, in-situ hybridization and fluorescence in-situ hybridization tests and immunophenotyping by flow cytometry cited in this report (if any) were determined by the Surgical Pathology and Flow Cytometry Departments at [facility] as part of an ongoing bottle house quality control technician program and in compliance with federally mandated regulations drawn from the Clinical Laboratory Improvement Act of 1988 (CLIA '88). Some of these tests rely on the use of analyte specific reagents and are subject to specific labeling requirements by the US Food and Drug Administration. Such diagnostic tests may only be performed in a facility that is certified by the Department of Health and Human Services as a high complexity laboratory under CLIA '88. The FDA has determined that such clearance or approval is not necessary. This test is used for clinical purposes. It should not be regarded as investigational or for research. Nevertheless, federal rules concerning the medical use of analyte specific reagents require that the following disclaimer be attached to the report: This test was developed and its performance characteristics determined by the Surgical Pathology and Flow Cytometry Departments of [facility]. It has not been cleared or approved by the U. S. Food and Drug Administration. Nate ROSENTHAL LAB CYTOLOGY ORDER JOEY Final Result [facility] 3rd Floor [place], [place] [phone] * Mycology (fungal) culture and stain Abscess Neck (12/10/2024 2:00 PM CDT) Direct Specimen Exam Stain: No Fungal elements seen. Report Final Report: No growth of fungus [facility] Abscess (Neck) 12/10/2024 2: 00 PM CDT 12/10/2024 6:21 PM CDT Narrative [facility] - 01/07/2025 8:18 AM CDT Specimen received in a sterile container. Testing performed by [facility] Microbiology Laboratory ([phone]). Nate ROSENTHAL LAB MICROBIOLOGY - GENERAL ORDERABLES Final Result Performing Organization Address City/[facility]/ZIP Co de Phone Number [facility] Department [place] [address] * Aerobic and anaerobic culture and gram stain Abscess Neck (12/10/2024 2:00 PM CDT) Direct Specimen Exam Stain: Abundant polymorphonuclear leukocytes seen. No organisms seen. Report Final Report: No growth [facility] Abscess (Neck) 12/10/2024 2: 00 PM CDT 12/10/2024 6:21 PM CDT Narrative [facility] - 12/14/2024 11:47 AM CDT Specimen received in a sterile container. Testing performed by [facility] Microbiology Laboratory ([phone]) Specimens submitted from normally sterile body sites will have all bacterial morphotypes identified. Specimens that contain grossly mixed osmar and/or are from body sites that are not normally sterile will be examined for Staphylococcus aureus, Pseudomonas aeruginosa, beta-hemolytic strep, vancomycin-resistant Enterococcus, Bacteroides, Parabacteroides, Clostridium perfringens and fungus. If any of these are isolated, the organism will be reported. Current interpretive data was last revised on 2019. Nate ROSENTHAL LAB MICROBIOLOGY - GENERAL ORDERABLES Final Result Performing Organization Address City/State/[facility] Co de Phone Number [facility] [place] [address] * eGFR (12/09/2024 9:05 PM CDT) eGFR >90 >=60 mL/min/1. 73 m2 Comment: Interpretive Data Reference Interval Normal >/= 90 mL/min/1.73m2 Mildly decreased* 60 - 89 mL/min/1.73m2 Mildly to moderately decreased 45 - 59 mL/min/1.73m2 Moderately to severely decreased 30 - 44 mL/min/1.73m2 Severely decreased 15 - 29 mL/min/1.73m2 Kidney Failure < 15 mL/min/1.73m2 *Relative to young adult level Estimated glomerular filtration rate is determined by the 2020 CKD-EPI equation recommended by the National Kidney Foundation (A Unifying Approach to GFR Estimation: Recommendations of the NKF-ASK Task Force on Reassessing the Inclusion of Race in Diagnosing Kidney Disease, JASN 202). The CKD-EPI equation should not be used for patients with unstable renal function and has not been validated in children and those over 70. Current interpretive data was last reviewed 2021. Blood 12/09/2024 9:05 PM CDT 12/09/2024 11:08 PM CDT Nate ROSENTHAL LAB BLOOD ORDERABL ES Final Result [facility] [place] [address] * (ABNORMAL) Differential, auto (12/09/2024 9:05 PM CDT) Neutrophil abs 9.01(H) 1.50 - 6.50 K/cumm Imm gran abs 0.04 0.00 - 0.10 K/cumm [facility] Lymphocyte abs 2.53 0.80 - 3.30 K/cumm [facility] Monocyte abs 1.11(H) 0.20 - 0.80 K/cumm [facility] Eosinophil abs 0.12 0.00 - 0.50 K/cumm [facility] Basophil abs 0.09 0.00 - 0.10 K/cumm [facility] Neutrophil pct 69.9 % [facility] Comment: Interpretive Data Percent cell count reference ranges are not reported, since discordance with absolute values may lead to misinterpretation of CBC data. Current Interpretive Data was last revised on 2017. Imm gran pct 0.3 % [facility] Comment: Interpretive Data Percent cell count reference ranges are not reported, since discordance with absolute values may lead to misinterpretation of CBC data. Current Interpretive Data was last revised on 2017. Lymphocyte pct 19.6 % [facility] Comment: Interpretive Data Percent cell count reference ranges are not reported, since discordance with absolute values may lead to misinterpretation of CBC data. Current Interpretive Data was last revised on 2017. Monocyte pct 8.6 % [facility] Comment: Interpretive Data Percent cell count reference ranges are not reported, since discordance with absolute values may lead to misinterpretation of CBC data. Current Interpretive Data was last revised on 2017. Eosinophil pct 0.9 % [facility] Comment: Interpretive Data Percent cell count reference ranges are not reported, since discordance with absolute values may lead to misinterpretation of CBC data. Current Interpretive Data was last revised on 2017. Basophil pct 0.7 % [facility] Comment: Interpretive Data Percent cell count reference ranges are not reported, since discordance with absolute values may lead to misinterpretation of CBC data. Current Interpretive Data was last revised on 2017. Blood 12/09/2024 9:05 PM CDT 12/09/2024 11:08 PM CDT Nate ROSENTHAL LAB BLOOD ORDERABL ES Final Result Performing Organization Address [facility] Co de Phone Number [facility] [place] [address] * (ABNORMAL) CBC with auto differential (12/09/2024 9:05 PM CDT) Pathologist [facility] WBC 12.90(H) 3.80 - 9.90 K/cumm Hgb 13.2 13.0 - 17.5 g/dL [facility] Hct 38.7(L) 38.9 - 50.3 % [facility] Plt 263 150 - 400 K/cumm [facility] MPV 10.4 9.1 - 12.3 fL [facility] RBC 4.23(L) 4.30 - 5.80 M/cumm [facility] MCV 91.5 81.3 - 96.4 fL [facility] MCH 31.2 27.1 - 33.3 pg [facility] MCHC 34.1 32.3 - 35.7 g/dL [facility] RDW CV 13.2 11.1 - 14.9 % [facility] RDW SD 44.5 35.7 - 48.1 fL [facility] NRBC abs 0.00 0.00 - 0.01 K/cumm [facility] Blood 12/09/2024 9:05 PM CDT 12/09/2024 11:08 PM CDT Nate ROSENTHAL LAB BLOOD ORDERABL ES Final Result Performing Organization Address [facility] Co de Phone Number [facility] [place] [address] * Basic metabolic panel (12/09/2024 9:05 PM CDT) Sodium 139 135 - 145 mmol/L Potassium, pl 4.1 3.3 - 4.9 mmol/L [facility] Chloride 102 97 - 110 mmol/L [facility] CO2 29 22 - 32 mmol/L [facility] Anion gap 8 2 - 15 mmol/L [facility] BUN 19 6 - 25 mg/dL [facility] Creatinine 0.88 0.80 - 1.30 mg/dL [facility] Glucose 80 70 - 199 mg/dL [facility] Comment: Interpretive Data Fasting glucose >/= 126 mg/dl is diagnostic for diabetes. Fasting is defined as no caloric intake for at least 8 hours. Fasting glucose between 100 mg/dl to 125 mg/dl is diagnostic of prediabetes. In a patient with classic symptoms of hyperglycemia or hyperglycemic crisis, a random glucose >/= 200 mg/dl is diagnostic for diabetes. In the absence of unequivocal hyperglycemia, results should be confirmed by repeat testing. The classification and Diagnosis of Diabetes Diabetes Care 2021; 46: S19-S40. Current interpretive data was last revised 2022. Calcium 9.1 8.5 - 10.3 mg/dL [facility] Blood 12/09/2024 9:05 PM CDT 12/09/2024 11:08 PM CDT us Nate ROSENTHAL LAB BLOOD ORDERABL ES Final Result [facility] [place] [address] * US Head Neck Soft Tissue (12/09/2024 10:04 AM CDT) Anatomical Region Laterality Modality Head and Neck N/A Ultrasound 12/09/2024 10:2 6 AM CDT Impressions 12/09/2024 10:39 AM CDT 1. 4.0 cm rim-enhancing abscess/phlegmon in the left neck, corresponding to the finding seen on CT 12/07/2024. 2. Due to patient's inability to tolerate the procedure under local anesthesia alone, ultrasound-guided aspiration/biopsy was not attempted. Recommended aspiration/biopsy under sedation. Dictated by: Roxy Caal MD, MPH The radiology attending physician has personally reviewed this study, and had reviewed and/or edited this written report and agrees with it. Electronically signed by: Nivia Calderón M.D. Narrative 12/09/2024 10:39 AM CDT EXAMINATION: NECK SOFT TISSUE SONOGRAM HISTORY: 39-year-old male with left sialoadenitis and a rim-enhancing abscess in the left neck. COMPARISON: CT 12/07/2024 FINDINGS: Sonographic evaluation at the palpable area of concern in the left neck is significant for a complex heterogeneous 4.0 x 3.5 x 2.5 cm fluid collection/phlegmon with associated hyperemia and hypervascularity. Due to patient's severe discomfort with needles and inability to tolerate the procedure under local anesthesia, ultrasound-guided aspiration/biopsy was not attempted. This was communicated to the ordering provider, AMALIA ROSENTHAL. Procedure Note Nivia Calderón MD - 12/09/2024 EXAMINATION: NECK SOFT TISSUE SONOGRAM HISTORY: 39-year-old male with left sialoadenitis and a rim-enhancing abscess in the left neck. COMPARISON: CT 12/07/2024 FINDINGS: Sonographic evaluation at the palpable area of concern in the left neck is significant for a complex heterogeneous 4.0 x 3.5 x 2.5 cm fluid collection/phlegmon with associated hyperemia and hypervascularity. Due to patient's severe discomfort with needles and inability to tolerate the procedure under local anesthesia, ultrasound-guided aspiration/biopsy was not attempted. This was communicated to the ordering provider, AMALIA ROSENTHAL. IMPRESSION: 1. 4.0 cm rim-enhancing abscess/phlegmon in the left neck, corresponding to the finding seen on CT 12/07/2024. 2. Due to patient's inability to tolerate the procedure under local anesthesia alone, ultrasound-guided aspiration/biopsy was not attempted. Recommended aspiration/biopsy under sedation. Dictated by: Roxy Caal MD, MPH The radiology attending physician has personally reviewed this study, and had reviewed and/or edited this written report and agrees with it. Electronically signed by: Nivia Calderón M.D. us Nate ROSENTHAL IMG US PROCEDURES Final Result * eGFR (12/09/2024 4:09 AM CDT) eGFR >90 >=60 mL/min/1. 73 m2 Comment: Interpretive Data Reference Interval Normal >/= 90 mL/min/1.73m2 Mildly decreased* 60 - 89 mL/min/1.73m2 Mildly to moderately decreased 45 - 59 mL/min/1.73m2 Moderately to severely decreased 30 - 44 mL/min/1.73m2 Severely decreased 15 - 29 mL/min/1.73m2 Kidney Failure < 15 mL/min/1.73m2 *Relative to young adult level Estimated glomerular filtration rate is determined by the 2020 CKD-EPI equation recommended by the National Kidney Foundation (A Unifying Approach to GFR Estimation: Recommendations of the NKF-ASK Task Force on Reassessing the Inclusion of Race in Diagnosing Kidney Disease, JASN 2020). The CKD-EPI equation should not be used for patients with unstable renal function and has not been validated in children and those over 70. Current interpretive data was last reviewed 2021. Blood 12/09/2024 4:09 AM CDT 12/09/2024 5:23 AM CDT Nate ROSENTHAL LAB BLOOD ORDERABL ES Final Result [facility] [place] [address] * (ABNORMAL) Protime-INR (12/09/2024 4:09 AM CDT) PT 14.3(H) 9.7 - 13.0 sec INR 1.32(H) 0.90 - 1.20 [facility] Comment: Interpretive data Oral anticoagulant therapeutic ranges: Venous thromboembolism prophylaxis or treatment: 2.0-3.0 CARDIOLOGY Standard range: 2.0-3.0 High-intensity range: 2.5-3.5 Refer to indication-specific guidelines for appropriate target ranges for prosthetic heart valve replacement. Current interpretive data was last revised on 2019. Blood 12/09/2024 4:09 AM CDT 12/09/2024 5:40 AM CDT Nate ROSENTHAL LAB BLOOD ORDERABL ES Final Result Performing Organization Address [facility] Co de Phone Number [facility] [employer] [place] [address] * (ABNORMAL) CBC without differential (12/09/2024 4:09 AM CDT) WBC 13.58(H) 3.80 - 9.90 K/cumm Hgb 12.3(L) 13.0 - 17.5 g/dL [facility] Hct 35.7(L) 38.9 - 50.3 % [facility] Plt 262 150 - 400 K/cumm [facility] MPV 10.8 9.1 - 12.3 fL [facility] RBC 3.96(L) 4.30 - 5.80 M/cumm [facility] MCV 90.2 81.3 - 96.4 fL [facility] MCH 31.1 27.1 - 33.3 pg [facility] MCHC 34.5 32.3 - 35.7 g/dL [facility] RDW CV 13.2 11.1 - 14.9 % [facility] RDW SD 44.1 35.7 - 48.1 fL [facility] NRBC abs 0.00 0.00 - 0.01 K/cumm [facility] Blood 12/09/2024 4:09 AM CDT 12/09/2024 5:23 AM CDT Nate ROSENTHAL LAB BLOOD ORDERABL ES Final Result Performing Organization Address [facility]/ZIP Co de Phone Number [facility] Department [place] [employer] [place] [address] * Basic metabolic panel (12/09/2024 4:09 AM CDT) Sodium 138 135 - 145 mmol/L Potassium, pl 3.9 3.3 - 4.9 mmol/L [facility] Chloride 102 97 - 110 mmol/L [facility] CO2 26 22 - 32 mmol/L [facility] Anion gap 10 2 - 15 mmol/L [facility] BUN 17 6 - 25 mg/dL [facility] Creatinine 0.83 0.80 - 1.30 mg/dL [facility] Glucose 96 70 - 199 mg/dL [facility] Comment: Interpretive Data Fasting glucose >/= 126 mg/dl is diagnostic for diabetes. Fasting is defined as no caloric intake for at least 8 hours. Fasting glucose between 100 mg/dl to 125 mg/dl is diagnostic of prediabetes. In a patient with classic symptoms of hyperglycemia or hyperglycemic crisis, a random glucose >/= 200 mg/dl is diagnostic for diabetes. In the absence of unequivocal hyperglycemia, results should be confirmed by repeat testing. The classification and Diagnosis of Diabetes Diabetes Care 2021; 46: S19-S40. Current interpretive data was last revised 2022. Calcium 9.1 8.5 - 10.3 mg/dL [facility] Blood 12/09/2024 4:09 AM CDT 12/09/2024 5:23 AM CDT us Nate ROSENTHAL LAB BLOOD ORDERABL ES Final Result [facility] [place] [address] * [place] CRITICAL CARE ILL/INJURED PATIENT INIT 30-74 MIN (12/08/2024 6:39 AM CDT) Narrative Keyur Phillip MD - 12/08/2024 6:39 AM CDT Keyur Phillip MD 12/08/2024 6:40 AM Critical Care Performed by: Keyur Phillip MD Authorized by: Keyur Phillip MD Critical care provider statement: As reflected in the history, physical exam, orders, notes, and/or MDM, I was personally present while the patient was critically ill and provided critical care services for 35 minutes, excluding time involved in separately billable procedures. Critical care was necessary to treat or prevent imminent or life-threatening deterioration of the following condition(s): Neck abscess Critical care was time spent by me providing the following: serial bedside patient exams and interpretation of bedside monitors, imaging, and arterial/venous lab draws obtain appropriate cultures and empiric broad coverage antibiotics prepared for emergent procedure/operating room I provided emergent necessary critical care medicine services to this patient. I spent time documenting in the medical record. I spent time discussing the management of this critically ill patient with consultants and the medical staff. us Keyur Phillip MD IN CLINIC/BEDSIDE ORD ERABLES Final Result * (ABNORMAL) Aerobic and anaerobic culture and gram stain Abscess Neck (12/08/2024 6:00 AM CDT) Direct Specimen Exam Stain: Abundant polymorphonuclear leukocytes seen. Few Gram Positive Cocci Report Amended Report - Complete: Few Mixed upper respiratory tract microorganisms. Includes the following: Few Streptococcus anginosus No further workup. (.) [facility] Organism STREPTOCOCCUS ANGINOSUS [facility] Organism MIXED UPPER RESPIRATORY TRACT MICROORGANISMS. [facility] Abscess (Neck) 12/08/2024 6: 00 AM CDT 12/08/2024 6:26 AM CDT Narrative [facility] - 12/14/2024 1:53 PM CDT Specimen received on an ESwab. Testing performed by [facility] ([phone]) Specimens submitted from normally sterile body sites will have all bacterial morphotypes identified. Specimens that contain grossly mixed osmar and/or are from body sites that are not normally sterile will be examined for Staphylococcus aureus, Pseudomonas aeruginosa, beta-hemolytic strep, vancomycin-resistant Enterococcus, Bacteroides, Parabacteroides, Clostridium perfringens and fungus. If any of these are isolated, the organism will be reported. Current interpretive data was last revised on 2019. us Keyur Phillip MD LAB MICROBIOL OGY - GENERAL ORDERABLES Edited Result - Final [facility] [place] [address] * Sepsis Lactate w/ Reflex (12/07/2024 9:43 PM CDT) Sepsis Lactate 1.1 0.7 - 2.0 mmol/L Blood 12/07/2024 9:43 PM CDT 12/07/2024 9:45 PM CDT us Dick ROSENTHAL LAB BLOOD ORDERABLES Final R esult Performing Organization Address City/[facility]/ZIP Co de Phone Number [facility] [address] [place] [address] * eGFR (12/07/2024 9:43 PM CDT) eGFR >90 >=60 mL/min/1. 73 m2 Comment: Interpretive Data Reference Interval Normal >/= 90 mL/min/1.73m2 Mildly decreased* 60 - 89 mL/min/1.73m2 Mildly to moderately decreased 45 - 59 mL/min/1.73m2 Moderately to severely decreased 30 - 44 mL/min/1.73m2 Severely decreased 15 - 29 mL/min/1.73m2 Kidney Failure < 15 mL/min/1.73m2 *Relative to young adult level Estimated glomerular filtration rate is determined by the 2020 CKD-EPI equation recommended by the National Kidney Foundation (A Unifying Approach to GFR Estimation: Recommendations of the NKF-ASK Task Force on Reassessing the Inclusion of Race in Diagnosing Kidney Disease, JASN 2020). The CKD-EPI equation should not be used for patients with unstable renal function and has not been validated in children and those over 70. Current interpretive data was last reviewed 2021. Blood 12/07/2024 9:43 PM CDT 12/07/2024 9:46 PM CDT us Evan Reynolds MD LAB BLOOD ORDERABLE S Final Result [facility] [address] [employer] [place] [address] * (ABNORMAL) Differential, auto (12/07/2024 9:43 PM CDT) Pathologist [facility] Neutrophil abs 9.48(H) 1.50 - 6.50 K/cumm Imm gran abs 0.04 0.00 - 0.10 K/cumm [facility] Lymphocyte abs 2.06 0.80 - 3.30 K/cumm [facility] Monocyte abs 0.97(H) 0.20 - 0.80 K/cumm [facility] Eosinophil abs 0.14 0.00 - 0.50 K/cumm [facility] Basophil abs 0.07 0.00 - 0.10 K/cumm [facility] Neutrophil pct 74.4 % [facility] Comment: Interpretive Data Percent cell count reference ranges are not reported, since discordance with absolute values may lead to misinterpretation of CBC data. Current Interpretive Data was last revised on 2017. Imm gran pct 0.3 % [facility] Comment: Interpretive Data Percent cell count reference ranges are not reported, since discordance with absolute values may lead to misinterpretation of CBC data. Current Interpretive Data was last revised on 2017. Lymphocyte pct 16.1 % [facility] Comment: Interpretive Data Percent cell count reference ranges are not reported, since discordance with absolute values may lead to misinterpretation of CBC data. Current Interpretive Data was last revised on 2017. Monocyte pct 7.6 % [facility] Comment: Interpretive Data Percent cell count reference ranges are not reported, since discordance with absolute values may lead to misinterpretation of CBC data. Current Interpretive Data was last revised on 2017. Eosinophil pct 1.1 % [facility] Comment: Interpretive Data Percent cell count reference ranges are not reported, since discordance with absolute values may lead to misinterpretation of CBC data. Current Interpretive Data was last revised on 2017. Basophil pct 0.5 % [facility] Comment: Interpretive Data Percent cell count reference ranges are not reported, since discordance with absolute values may lead to misinterpretation of CBC data. Current Interpretive Data was last revised on 2017. Blood 12/07/2024 9:43 PM CDT 12/07/2024 9:46 PM CDT Evan Reynolds MD LAB BLOOD ORDERABLE S Final Result Performing Organization Address [facility] Co de Phone Number [facility] [address] [address] * (ABNORMAL) CBC with auto differential (12/07/2024 9:43 PM CDT) [facility] WBC 12.76(H) 3.80 - 9.90 K/cumm Hgb 14.3 13.0 - 17.5 g/dL [facility] Hct 42.2 38.9 - 50.3 % [facility] Plt 243 150 - 400 K/cumm [facility] MPV 9.7 9.1 - 12.3 fL [facility] RBC 4.65 4.30 - 5.80 M/cumm [facility] MCV 90.8 81.3 - 96.4 fL [facility] MCH 30.8 27.1 - 33.3 pg [facility] MCHC 33.9 32.3 - 35.7 g/dL [facility] RDW CV 13.3 11.1 - 14.9 % [facility] RDW SD 44.6 35.7 - 48.1 fL [facility] NRBC abs 0.00 0.00 - 0.01 K/cumm [facility] Blood 12/07/2024 9:43 PM CDT 12/07/2024 9:46 PM CDT Evan Reynolds MD LAB BLOOD ORDERABLE S Final Result Performing Organization Address [facility] Co de Phone Number [facility] [address] [place] [address] * Comprehensive metabolic panel (12/07/2024 9:43 PM CDT) [facility] Sodium 135 135 - 145 mmol/L Potassium, pl 3.8 3.3 - 4.9 mmol/L [facility] Chloride 99 97 - 110 mmol/L [facility] CO2 24 22 - 32 mmol/L [facility] Anion gap 12 2 - 15 mmol/L [facility] BUN 16 6 - 25 mg/dL [facility] Creatinine 0.83 0.80 - 1.30 mg/dL [facility] Glucose 118 70 - 199 mg/dL [facility] Comment: Interpretive Data Fasting glucose >/= 126 mg/dl is diagnostic for diabetes. Fasting is defined as no caloric intake for at least 8 hours. Fasting glucose between 100 mg/dl to 125 mg/dl is diagnostic of prediabetes. In a patient with classic symptoms of hyperglycemia or hyperglycemic crisis, a random glucose >/= 200 mg/dl is diagnostic for diabetes. In the absence of unequivocal hyperglycemia, results should be confirmed by repeat testing. The classification and Diagnosis of Diabetes Diabetes Care 2021; 46: S19-S40. Current interpretive data was last revised 2022. Calcium 9.5 8.5 - 10.3 mg/dL [facility] Bilirubin, total 0.7 0.1 - 1.2 mg/dL [facility] Protein, pl 7.8 6.5 - 8.5 g/dL [facility] Albumin 4.2 3.5 - 5.0 g/dL [facility] Alk phos 58 40 - 130 Units/L [facility] ALT 17 7 - 55 Units/L [facility] AST 20 10 - 50 Units/L [facility] Blood 12/07/2024 9:43 PM CDT 12/07/2024 9:46 PM CDT Evan Reynolds MD LAB BLOOD ORDERABLE S Final Result [facility] [address] [facility] Department of Laboratories [place], [place] [id number] * CT Neck Soft Tissue W Contrast (12/07/2024 5:17 PM CDT) Anatomical Region Laterality Modality Head and Neck N/A Computed Tomogra phy 12/07/2024 5:24 PM CDT Narrative 12/07/2024 5:30 PM CDT EXAM DESCRIPTION: CT SOFT TISSUE NECK W CONTRAST REASON FOR STUDY: left sided neck swelling, possible abscess Pt to ED I have a salivary gland that's been clogged for 4 days Pt states he has been seen at [facility] and was prescribed abx. I then saw my ENT who said it is an abscess and that I needsto go to ED, they said antibiotics won't help C/o pain with swallowing, denies sob or difficulty breathing. Also c/o low grade fever. Significant swelling to left side of neck. BB marker placed TECHNIQUE: Post IV contrast scanning from skull base through lung apices. Reconstructed MPR images reviewed. All images stored on PACS. Automated exposure control was used as a dose optimization technique for this examination. CONTRAST TYPE/DOSE: 100mL of IOVERSOL 350 MG IODINE/ML INTRAVENOUS SYRINGE injected via intravenous COMPARISON: None FINDINGS: SOFT TISSUE: There is a 3.1 x 1.9 cm thick rim enhancing fluid collection in the left neck which appears to extend from the left submandibular gland. Findings on today's exam are consistent abscess formation from sialoadenitis of the left submandibular gland. The soft tissues of the left lower face and neck are edematous. ORAL CAVITY/FLOOR OF MOUTH, PHARYNX, LARYNX, HYPOPHARYNX: No abnormal findings. LYMPHADENOPATHY: Multiple enlarged left anterior cervical chain lymph nodes are seen. There also multiple enlarged submandibular and submental lymph nodes. MAJOR SALIVARY GLANDS: There is a 7 mm left sialolith and a 1.1 cm right sialolith in the floor of the mouth. THYROID: Normal size. No nodules greater than 1 cm. VASCULATURE: No apparent critical stenosis or occlusion. INTRACRANIAL/SKULL BASE/INCLUDED ORBITS: Limited intracranial evaluation. No abnormal findings. PARANASAL SINUSES: Well-aerated. CERVICAL SPINE: No significant abnormalities. LUNG APICES: Clear. OTHER: No other significant finding. IMPRESSION: 1. Left sialoadenitis with an associated rim enhancing abscess in the left neck. 2. Right sialolith. 3. Multiple enlarged lymph nodes which are likely reactive. THIS IS AN ELECTRONICALLY VERIFIED FINAL REPORT 12/07/2024 5:30 PM - Electronically signed by Den Barney M.D. BS T: Report ID: [id number] Reading Location: [id number] Procedure Note Den Barney MD - 12/07/2024 EXAM DESCRIPTION: CT SOFT TISSUE NECK W CONTRAST REASON FOR STUDY: left sided neck swelling, possible abscess Pt to ED I have a salivary gland that's been clogged for 4 days Ptstates he has been seen at [facility] and was prescribed abx. I then saw my ENT whosaid it is an abscess and that I needsto go to ED, they said antibiotics won'thelp C/o pain with swallowing, denies sob or difficulty breathing. Also c/olow grade fever. Significant swelling to left side of neck. BB marker placed TECHNIQUE: Post IV contrast scanning from skull base through lung apices. Reconstructed MPR images reviewed. All images stored on PACS. Automated exposure control was used as a dose optimization technique for this examination. CONTRAST TYPE/DOSE: 100mL of IOVERSOL 350 MG IODINE/ML INTRAVENOUSSYRINGE injected via intravenous COMPARISON: None FINDINGS: SOFT TISSUE: There is a 3.1 x 1.9 cm thick rim enhancing fluid collection in the left neck which appears to extend from the left submandibular gland. Findings on today's exam are consistent abscess formation from sialoadenitis of the left submandibular gland. The soft tissues of the left lower face and neck are edematous. ORAL CAVITY/FLOOR OF MOUTH, PHARYNX, LARYNX, HYPOPHARYNX: No abnormal findings. LYMPHADENOPATHY: Multiple enlarged left anterior cervical chain lymphnodes are seen. There also multiple enlarged submandibular and submental lymph nodes. MAJOR SALIVARY GLANDS: There is a 7 mm left sialolith and a 1.1 cm right sialolith in the floor of the mouth. THYROID: Normal size. No nodules greater than 1 cm. VASCULATURE: No apparent critical stenosis or occlusion. INTRACRANIAL/SKULL BASE/INCLUDED ORBITS: Limited intracranialevaluation. No abnormal findings. PARANASAL SINUSES: Well-aerated. CERVICAL SPINE: No significant abnormalities. LUNG APICES: Clear. OTHER: No other significant finding. IMPRESSION: 1. Left sialoadenitis with an associated rim enhancingabscess in the left neck. 2. Right sialolith. 3. Multiple enlarged lymph nodes which are likely reactive. THIS IS AN ELECTRONICALLY VERIFIED FINAL REPORT 12/07/2024 5:30 PM - Electronically signed by Den Barney M.D. BS T: Report ID: [id number] Reading Location: [place] [address] PROCEDURES Final Re sult * eGFR (12/06/2024 8:14 AM CDT) eGFR >90 >=60 mL/min/1. 73 m2 Comment: Interpretive Data Reference Interval Normal >/= 90 mL/min/1.73m2 Mildly decreased* 60 - 89 mL/min/1.73m2 Mildly to moderately decreased 45 - 59 mL/min/1.73m2 Moderately to severely decreased 30 - 44 mL/min/1.73m2 Severely decreased 15 - 29 mL/min/1.73m2 Kidney Failure < 15 mL/min/1.73m2 *Relative to young adult level Estimated glomerular filtration rate is determined by the 2020 CKD-EPI equation recommended by the National Kidney Foundation (A Unifying Approach to GFR Estimation: Recommendations of the NKF-ASK Task Force on Reassessing the Inclusion of Race in Diagnosing Kidney Disease, JASN 2020). The CKD-EPI equation should not be used for patients with unstable renal function and has not been validated in children and those over 70. Current interpretive data was last reviewed 2021. Testing performed by: [address] [address] Blood 12/06/2024 8:14 AM CDT 12/06/2024 8:18 AM CDT us Jose Caal MD LAB BLOOD ORDERABLES Isa l Result [facility] [address] [facility] Department [place] [address] * (ABNORMAL) Differential, auto (12/06/2024 8:14 AM CDT) Pathologist [facility] Neutrophil abs 11.05(H) 1.50 - 6.50 K/cumm Comment:Testing performed by : [address] [address] Imm gran abs 0.11(H) 0.00 - 0.10 K/cumm [facility] Comment:Testing performed by : [address] [address] Lymphocyte abs 2.65 0.80 - 3.30 K/cumm [facility] Comment:Testing performed by : [address] [address] Monocyte abs 1.01(H) 0.20 - 0.80 K/cumm [facility] Comment:Testing performed by : [address] [address] Eosinophil abs 0.02 0.00 - 0.50 K/cumm [facility] Comment:Testing performed by : [address] [address] Basophil abs 0.08 0.00 - 0.10 K/cumm [facility] Comment:Testing performed by : [address] [address] Neutrophil pct 74.1 % [facility] Comment: Interpretive Data Percent cell count reference ranges are not reported, since discordance with absolute values may lead to misinterpretation of CBC data. Current Interpretive Data was last revised on 2017. Testing performed by: [address] [address] Imm gran pct 0.7 % [facility] Comment: Interpretive Data Percent cell count reference ranges are not reported, since discordance with absolute values may lead to misinterpretation of CBC data. Current Interpretive Data was last revised on 2017. Testing performed by: [address] [address] Lymphocyte pct 17.8 % [facility] Comment: Interpretive Data Percent cell count reference ranges are not reported, since discordance with absolute values may lead to misinterpretation of CBC data. Current Interpretive Data was last revised on 2017. Testing performed by: [address] [address] Monocyte pct 6.8 % [facility] Comment: Interpretive Data Percent cell count reference ranges are not reported, since discordance with absolute values may lead to misinterpretation of CBC data. Current Interpretive Data was last revised on 2017. Testing performed by: [address] [address] Eosinophil pct 0.1 % [facility] Comment: Interpretive Data Percent cell count reference ranges are not reported, since discordance with absolute values may lead to misinterpretation of CBC data. Current Interpretive Data was last revised on 2017. Testing performed by: [address] [address] Basophil pct 0.5 % [facility] Comment: Interpretive Data Percent cell count reference ranges are not reported, since discordance with absolute values may lead to misinterpretation of CBC data. Current Interpretive Data was last revised on 2017. Testing performed by: [address] [address] Blood 12/06/2024 8:14 AM CDT 12/06/2024 8:19 AM CDT us Jose Caal MD LAB BLOOD ORDERABLES Isa ayala Result [facility] Department [place] [address] * (ABNORMAL) CBC with auto differential (12/06/2024 8:14 AM CDT) WBC 14.92(H) 3.80 - 9.90 K/cumm Comment:Testing performed by : [address] [address] Hgb 15.1 13.0 - 17.5 g/dL [facility] Comment:Testing performed by : [address] [address] Hct 44.7 38.9 - 50.3 % [facility] Comment:Testing performed by : [address] [address] Plt 264 150 - 400 K/cumm [facility] Comment:Testing performed by : [address] [address] MPV 9.6 9.1 - 12.3 fL [facility] Comment:Testing performed by : [address] [address] RBC 4.89 4.30 - 5.80 M/cumm [facility] Comment:Testing performed by : [address] [address] MCV 91.4 81.3 - 96.4 fL [facility] Comment:Testing performed by : [address] [address] MCH 30.9 27.1 - 33.3 pg [facility] Comment:Testing performed by : [address] [address] MCHC 33.8 32.3 - 35.7 g/dL [facility] Comment:Testing performed by : [address] [address] RDW CV 13.5 11.1 - 14.9 % [facility] Comment:Testing performed by : [address] [address] RDW SD 45.7 35.7 - 48.1 fL [facility] Comment:Testing performed by : [address] [address] NRBC abs 0.00 0.00 - 0.01 K/cumm [facility] Comment:Testing performed by : [address] [address] Blood 12/06/2024 8:14 AM CDT 12/06/2024 8:19 AM CDT us Jose Caal MD LAB BLOOD ORDERABLES Isa l Result [facility] [id number] [facility] Department of Laboratories [place], [place] [id number] * Comprehensive metabolic panel (12/06/2024 8:14 AM CDT) Sodium 136 135 - 145 mmol/L Comment:Testing performed by : [address] [address] Potassium, pl 4.2 3.3 - 4.9 mmol/L [facility] Comment: Hemolyzed; Potassium value may be falsely elevated by as much as 1.0 mmol/L. Suggest redraw and reanalysis. Testing performed by: [address] [address] Chloride 101 97 - 110 mmol/L [facility] Comment:Testing performed by : [address] [address] CO2 23 22 - 32 mmol/L [facility] Comment:Testing performed by : [address] [address] Anion gap 12 2 - 15 mmol/L [facility] Comment:Testing performed by : [address] [address] BUN 11 6 - 25 mg/dL [facility] Comment:Testing performed by : [address] [address] Creatinine 0.91 0.80 - 1.30 mg/dL [facility] Comment:Testing performed by : [address] [address] Glucose 98 70 - 199 mg/dL [facility] Comment: Interpretive Data Fasting glucose >/= 126 mg/dl is diagnostic for diabetes. Fasting is defined as no caloric intake for at least 8 hours. Fasting glucose between 100 mg/dl to 125 mg/dl is diagnostic of prediabetes. In a patient with classic symptoms of hyperglycemia or hyperglycemic crisis, a random glucose >/= 200 mg/dl is diagnostic for diabetes. In the absence of unequivocal hyperglycemia, results should be confirmed by repeat testing. The classification and Diagnosis of Diabetes Diabetes Care 202; 46: S19-S40. Current interpretive data was last revised 2022. Testing performed by: [address] [address] Calcium 10.1 8.5 - 10.3 mg/dL [facility] Comment:Testing performed by : [address] [address] Bilirubin, total 0.8 0.1 - 1.2 mg/dL [facility] Comment:Testing performed by : [address] [address] Protein, pl 8.5 6.5 - 8.5 g/dL [facility] Comment:Testing performed by : [address] [address] Albumin 4.8 3.5 - 5.0 g/dL [facility] Comment:Testing performed by : [address] [address] Alk phos 67 40 - 130 Units/L [facility] Comment:Testing performed by : [address] [address] ALT 26 7 - 55 Units/L [facility] Comment:Testing performed by : [address] [address] AST 31 10 - 50 Units/L [facility] Comment: Hemolyzed; result may be falsely elevated Testing performed by: [address] [address] Blood 12/06/2024 8:14 AM CDT 12/06/2024 8:18 AM CDT us Jose Caal MD LAB BLOOD ORDERABLES Isa l Result [facility] [address] [facility] Department [place] [address] from Last 3 Months Advance Directives For more information, please contact: [phone] * Full Code (Latest Code Status on File) Date Activated Date Inactivated Comments 01/07/2025 9:12 AM 01/10/2025 5:24 PM * Full Code Date Activated Date Inactivated Comments 12/08/2024 4:30 AM 12/11/2024 4:25 PM Care Teams [employer] Laboratory Assistant Relationship Specialty Start Date End Date No, Physician PCP - General 05/13/23
--- OUTSIDE RECORDS SUMMARY | 2025-01-31 06:53 | XMS_ITS | Clinical Summary ---
Author Organization [facility] [address] [place] [address] Care Team Providers Care Payroll Director Name Role Phone No, Physician Primary Care Provider [phone] Allergies Active Allergy Reactions Criticality Noted Date [...] negative - cultures from repeat I&D on 06/13- Few Coagulase negative Staphylococcus species - warm [...] AM CDT): -Nicotine patch -Tobacco cessation education Encounters Date Type Department Care Team Description 01/30/2025 Telephone Otolaryngology Mando Mccullough MD 01/26/2025 2:41 PM CDT - 01/26/2025 11:59 PM CDT Hospital Encounter [address] [address] Abscess; Abscess of skin of neck Discharge Disposition: Discharge to home or self care 01/26/2025 9:00 AM CDT [facility] - [facility] ENT [address] [facility] [address]th [place] [address] [place] [address] Stacie Can MD Submandibular sialoadenitis (Primary Dx); Abscess of skin of neck 01/26/2025 Orders Only [facility] ([facility] - [facility] ENT [address] [facility] 11th [place] [address] [place] [address] Stacie Can MD Abscess of skin of neck (Primary Dx); Abscess 01/15/2025 9:31 AM CDT Anesthesia Event [facility] Operating Room [facility] ([facility]) [address] [place] [address] Bharat Jamsine MD Heuvelman, Katherine Marie, NP 01/15/2025 9:05 AM CDT - 01/15/2025 12:00 PM CDT Surgery [facility] Operating Room [facility] ([facility]) [address] [place] [address] Stacie Can MD EXCISION SUBMANDIBULAR GLAND 01/15/2025 6:33 AM CDT - 01/15/2025 3:57 PM CDT Hospital Encounter [facility] Operating Room [facility] ([facility]) [address] [place] [address] Stacie Can MD Submandibular sialolithiasis; Submandibular sialoadenitis; Abscess of submandibular gland Discharge Disposition: Discharge to home or self care 01/14/2025 Telephone [facility] - [facility] ENT [address] [facility] [address]th [place] [address] [place] [address] Michelle Rolle CMA 01/11/2025 Telephone [facility] - [facility] ENT [address] [facility] 11th [place] [address] [place] [address] Michelle Rolle, KARELY 01/07/2025 3:30 AM CDT - 01/10/2025 1:24 PM CDT Hospital Encounter [address] [address] Bessy Shore MD Van Buren, MD Shruthi Roper Sean C., MD Petrovic Elbaz, Mirjana, MD Sialadenitis (Primary Dx); Neck abscess Discharge Disposition: Discharge to home or self care 01/05/2025 12:00 PM CDT Telemedicine [facility] - [facility] ENT [address] [facility] [address] [place] [address] Stacie Can MD Submandibular sialoadenitis (Primary Dx); Sialolithiasis 01/05/2025 Telephone [facility] ([facility] - [facility] ENT [address] [facility] [address]th [place] [address] [place] [address] Michelle Rolle, KARELY 01/05/2025 Telephone [facility] - [facility] ENT [address] [facility] [address]th [place] [address] [place] [address] Michelle Rolle, KARELY 12/16/2024 Telephone [facility] ENT [address] [facility] 11th [place] [address] [place] [address] Michelle Rolle, KARELY 12/16/2024 Telephone [facility] Otolaryngology [facility] [place] [address] Mikayla Abebe MS 12/08/2024 1:28 AM CDT - 12/11/2024 12:19 PM CDT Hospital Encounter [address] [address] Keyur Phillip MD Baum, Erin Shanel, MD Laya, Sarakshi, MD Abscess (Primary Dx) Discharge Disposition: Discharge to home or self care 12/07/2024 8:57 PM CDT - 12/07/2024 10:41 PM CDT Emergency [facility] [address] [place] [address] Sialoadenitis (Primary Dx); Submandibular abscess Discharge Disposition: Discharge to a short term hospital for IP 12/07/2024 Telephone [facility] [address] [facility] [address] [place] [address] Michelle Rolle CMA 12/06/2024 8:19 AM CDT - 12/06/2024 9:[address] [facility] Department [address] [place] [address] Jose Caal MD Submandibular sialoadenitis (Primary Dx) Discharge Disposition: Discharge to home or self care from Last 3 Months Surgical History Surgery Date Site/Laterality Comments US GUIDED ASPIRATION ABSCESS HEMATOMA CYST SOFT TISSUE 12/10/2024 N/A ORAL SURGERY 07/29/2022 - 07/28/2023 Medical History Medical History Date Comments Anxiety Migraine Social History Tobacco Use Types Packs/Day Years Used Date Smoking Tobacco: Every Day Cigarettes 0.8 22.5 Started: 2002 Passive Smoke Exposure: Past Smokeless Tobacco: Never Tobacco Cessation:Ready to Q uit: Not Asked; Counseling Given: Not Answered [facility] Utilities Answer Date Recorded In the past 12 months has [employer], [employer], or water [employer] threatened to shut off services in your [...] week 01/08/2025 How often do you attend [facility] or sabianism services? Never 01/08/2025 Do you belong to any clubs o r organizations such as buddhist groups, unions, fraternal or athletic groups, or [...] any time in the past 12 m [facility], were you homeless or living in a senior living (including now)? No 01/08/2025 Personal Safety Answer [...] on file Sexual Orientation Not on file Obstetrics History Last Filed Vital Signs Vital Sign Reading [...] 01/11/2025 11:20 AM CDT Plan of Treatment Health Maintenance Due Date Last Done Comments Hepatitis C Screening 1985 Varicella Vaccines (1 of 2 - 13+ 2-dose series) 1997 Hepatitis B Screening 2002 Regular Well Visit/Exam 18-64 2002 Pneumococcal vaccine <65 (1 of 2 - PCV) 2003 Influenza Vaccine (#1) 2025 Depression Screening 01/06/2026 01/06/2025 DTaP/Tdap/Td Vaccine (2 - Td or Tdap) 04/26/2030 04/26/2020 HPV Vaccines Aged Out No longer eligi ble based on patient's age to complete this topic Procedures Procedure Name Priority Date/Time Associated Diagnosis Comments AEROBIC AND ANAEROBIC CULTURE AND GRAM STAIN Routine 01/26/2025 3:22 PM CDT Abscess Abscess of skin of neck MYCOLOGY (FUNGAL) CULTURE Routine 01/26/2025 3:22 PM CDT Abscess Abscess of skin of neck SURGICAL PATHOLOGY Routine 01/15/2025 11:27 AM CDT Submandibular sialolithiasis Submandibular sialoadenitis Abscess of submandibular gland MN AN PROCEDURE PLACEHOLDER Routine 01/15/2025 10:00 AM CDT MN AN ELECTIVE ENDOTRACHEAL AIRWAY Routine 01/15/2025 10:00 [...] CDT PROTIME-INR Routine 12/09/2024 4:09 AM CDT MN CRITICAL CARE ILL/INJURED PATIENT INIT 30-74 MIN [...] organisms seen. Report Final Report: No growth [facility] Abscess (Neck, left) 01/26/2025 3:22 PM CDT 01/26/2025 3:55 PM CDT Narrative [facility] - 01/29/2025 12:18 PM CDT Neck abscess Testing performed by [facility] Microbiology Laboratory ([phone]) Specimens submitted from normally sterile body sites [...] - GEN ERAL ORDERABLES Final Result [facility] Department [place] [address] * Surgical pathology (01/15/2025 11:27 AM CDT) Tissue (Sublingual/Subma ndibular Gland) 01/15/2025 11:27 AM CDT Narrative PATHOLOGY [facility] - 01/20/2025 12:11 PM CDT EPIC results best viewed via link to PDF [facility] [place] [address] Note to Patients: This report may contain [...] details. SURGICAL PATHOLOGY REPORT FINAL Patient Name: BAUDILIO BRUNO Gender: M : 1985 (Age: 39) Address: [address] [place] [address] Hospital #: [id number] Taken:01/15/2025 Received:01/15/2025 Reported: 01/20/2025 Patient Type: [facility] Service: Surgery Location: Physician(s): Stacie Can M.D. 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 Jar 1. 01/18/2025 11:00 PA(s): Ewa Roberts MS, PA (ASCP) By this signature, I attest that the above diagnosis is based upon my personal examination of the slides(and/or other material). Addenda/Procedures The performance characteristics of some immunohistochemical stains, fluorescence in-situ hybridization tests and immunophenotyping by flow cytometry cited in this report (if any) were determined by the Surgical Pathology and Flow Cytometry Departments at [facility] as part of an ongoing corporate quality manager program and in compliance with federally mandated [...] Surgical Pathology and Flow Cytometry Departments of [facility]. It has not been cleared or approved by the U. S. Food and Drug Administration. IMAGES AND SCANNED DOCUMENTS, IF INCLUDED, ONLY VIEWABLE IN PDF VERSION OF REPORT us Stacie Can MD LAB PATHOLOGY ORDERABL ES Final Result PATHOLOGY [facility] 3rd Floor [place], [place] [phone] * MN AN ELECTIVE ENDOTRACHEAL AIRWAY, [place] AN PROCEDURE PLACEHOLDER (01/15/2025 10:00 AM CDT) [...] MD LAB BLOOD ORDERABLES F inal Result [facility] [place] [address] * (ABNORMAL) Differential, auto (01/08/2025 9:20 PM CDT) Neutrophil abs 4.64 1.50 - 6.50 K/cumm Imm gran abs 0.03 0.00 - 0.10 K/cumm [facility] Lymphocyte abs 2.28 0.80 - 3.30 K/cumm [facility] Monocyte abs 0.62 0.20 - 0.80 K/cumm [facility] Eosinophil abs 0.56(H) 0.00 - 0.50 K/cumm [facility] Basophil abs 0.11(H) 0.00 - 0.10 K/cumm [facility] Neutrophil pct 56.3 % [facility] Comment: Interpretive Data Percent cell count reference ranges are not reported, since discordance with absolute values may lead to misinterpretation of CBC data. Current Interpretive Data was last revised on 2017. Imm gran pct 0.4 % [facility] Comment: Interpretive Data Percent cell count reference ranges are not reported, since discordance with absolute values may lead to misinterpretation of CBC data. Current Interpretive Data was last revised on 2017. Lymphocyte pct 27.7 % [facility] Comment: Interpretive Data Percent cell count reference ranges are not reported, since discordance with absolute values may lead to misinterpretation of CBC data. Current Interpretive Data was last revised on 2017. Monocyte pct 7.5 % [facility] Comment: Interpretive Data Percent cell count reference ranges are not reported, since discordance with absolute values may lead to misinterpretation of CBC data. Current Interpretive Data was last revised on 2017. Eosinophil pct 6.8 % [facility] Comment: Interpretive Data Percent cell count reference ranges are not reported, since discordance with absolute values may lead to misinterpretation of CBC data. Current Interpretive Data was last revised on 2017. Basophil pct 1.3 % [facility] Comment: Interpretive Data Percent cell count reference ranges are not reported, since discordance with absolute values may lead to misinterpretation of CBC data. Current Interpretive Data was last revised on 2017. Blood 01/08/2025 9:20 PM CDT 01/08/2025 10:01 PM CDT us Cyn Levy MD LAB BLOOD ORDERABLES F inal Result [facility] Department [place] [address] * CBC with auto differential (01/08/2025 9:20 PM CDT) WBC 8.24 3.80 - 9.90 K/cumm Hgb 13.4 13.0 - 17.5 g/dL [facility] Hct 39.6 38.9 - 50.3 % [facility] Plt 242 150 - 400 K/cumm [facility] Comment:No clot detected in sample. MPV 10.7 9.1 - 12.3 fL [facility] RBC 4.35 4.30 - 5.80 M/cumm [facility] MCV 91.0 81.3 - 96.4 fL [facility] MCH 30.8 27.1 - 33.3 pg [facility] MCHC 33.8 32.3 - 35.7 g/dL [facility] RDW CV 13.0 11.1 - 14.9 % [facility] RDW SD 43.5 35.7 - 48.1 fL [facility] NRBC abs 0.00 0.00 - 0.01 K/cumm [facility] Blood 01/08/2025 9:20 PM CDT 01/08/2025 10:01 PM CDT Cyn Levy MD LAB BLOOD ORDERABLES F inal Result Performing Organization Address City/[facility]/ZIP Co de Phone Number [facility] Department [place] [address] * Basic metabolic panel (01/08/2025 9:20 PM CDT) Sodium 140 135 - 145 mmol/L Potassium, pl 4.2 3.3 - 4.9 mmol/L [facility] Comment:Hemolyzed; Potassium value may be falsely elevated by as much as 0.6-1.0 mmol/L. Suggest redraw and reanalysis. Chloride 103 97 - 110 mmol/L [facility] CO2 29 22 - 32 mmol/L [facility] Anion gap 8 2 - 15 mmol/L [facility] BUN 15 6 - 25 mg/dL [facility] Creatinine 0.83 0.80 - 1.30 mg/dL [facility] Glucose 88 70 - 199 mg/dL [facility] Comment: Interpretive Data Fasting glucose >/= [...] 2022. Calcium 9.2 8.5 - 10.3 mg/dL [facility] Blood 01/08/2025 9:20 PM CDT 01/08/2025 9:59 PM CDT Cyn Levy MD LAB BLOOD ORDERABLES F inal Result [facility] Department [place] [address] * (ABNORMAL) Aerobic and anaerobic culture and gram stain Abscess Neck (01/08/2025 2:27 PM CDT) Direct Specimen Exam Stain: Moderate polymorphonuclear leukocytes seen. No organisms seen. Report Final Report: Few Coagulase negative Staphylococcus species No further workup. (.) [facility] Organism COAGULASE NEGATIVE STAPHYLOCOCCUS SPECIES [facility] Abscess (Neck) 01/08/2025 2: 27 PM CDT 01/08/2025 3:02 PM CDT Narrative [facility] - 01/11/2025 1:58 PM CDT Specimen received on an ESwab. Testing performed by [facility]biology [facility] ([phone]) Specimens submitted from normally sterile body sites [...] interpretive data was last revised on 2019. Cyn Levy MD LAB MICROBIOLOGY - GEN ERAL ORDERABLES Final Result Performing Organization Address [facility] Co de Phone Number [facility] Department [place] [address] * eGFR (01/08/2025 8:59 AM CDT) eGFR [...] MD LAB BLOOD ORDERABLES F inal Result [facility] [place] [address] * Basic metabolic panel (01/08/2025 8:59 AM CDT) [facility] Signature Sodium 139 135 - 145 mmol/L Potassium, pl 4.0 3.3 - 4.9 mmol/L [facility] Chloride 102 97 - 110 mmol/L [facility] CO2 29 22 - 32 mmol/L [facility] Anion gap 8 2 - 15 mmol/L [facility] BUN 11 6 - 25 mg/dL [facility] Creatinine 0.80 0.80 - 1.30 mg/dL [facility] Glucose 84 70 - 199 mg/dL [facility] Comment: Interpretive Data Fasting glucose >/= [...] 2022. Calcium 9.9 8.5 - 10.3 mg/dL [facility] Blood 01/08/2025 8:59 AM CDT 01/08/2025 9:50 AM CDT us Cyn Levy MD LAB BLOOD ORDERABLES F inal Result Performing Organization Address [facility] Co de Phone Number [facility] Department [place] [address] * eGFR (01/07/2025 6:47 AM CDT) eGFR >90 >=60 mL/min/1. 73 [...] PhD LAB BLOOD ORDERABLES Final Resul t Performing Organization Address [facility]/ZIP Co de Phone Number [facility] Department [place] [address] * Differential, auto (01/07/2025 6:47 AM CDT) Neutrophil abs 5.34 1.50 - 6.50 K/cumm Imm gran abs 0.01 0.00 - 0.10 K/cumm [facility] Lymphocyte abs 1.58 0.80 - 3.30 K/cumm [facility] Monocyte abs 0.44 0.20 - 0.80 K/cumm [facility] Eosinophil abs 0.45 0.00 - 0.50 K/cumm [facility] Basophil abs 0.09 0.00 - 0.10 K/cumm [facility] Neutrophil pct 67.5 % [facility] Comment: Interpretive Data Percent cell count reference ranges are not reported, since discordance with absolute values may lead to misinterpretation of CBC data. Current Interpretive Data was last revised on 2017. Imm gran pct 0.1 % [facility] Comment: Interpretive Data Percent cell count reference ranges are not reported, since discordance with absolute values may lead to misinterpretation of CBC data. Current Interpretive Data was last revised on 2017. Lymphocyte pct 20.0 % [facility] Comment: Interpretive Data Percent cell count reference ranges are not reported, since discordance with absolute values may lead to misinterpretation of CBC data. Current Interpretive Data was last revised on 2017. Monocyte pct 5.6 % [facility] Comment: Interpretive Data Percent cell count reference ranges are not reported, since discordance with absolute values may lead to misinterpretation of CBC data. Current Interpretive Data was last revised on 2017. Eosinophil pct 5.7 % [facility] Comment: Interpretive Data Percent cell count reference ranges are not reported, since discordance with absolute values may lead to misinterpretation of CBC data. Current Interpretive Data was last revised on 2017. Basophil pct 1.1 % [facility] Comment: Interpretive Data Percent cell count reference ranges are not reported, since discordance with absolute values may lead to misinterpretation of CBC data. Current Interpretive Data was last revised on 2017. Blood 01/07/2025 6:47 AM CDT 01/07/2025 6:52 AM CDT us Fracisco Reyes MD PhD LAB BLOOD ORDERABLES Final Resul t [facility] [place] [address] * (ABNORMAL) CBC with auto differential (01/07/2025 6:47 AM CDT) [facility] WBC 7.91 3.80 - 9.90 K/cumm Hgb 13.7 13.0 - 17.5 g/dL [facility] Hct 41.4 38.9 - 50.3 % [facility] Plt 114(L) 150 - 400 K/cumm [facility] MPV 11.2 9.1 - 12.3 fL [facility] RBC 4.52 4.30 - 5.80 M/cumm [facility] MCV 91.6 81.3 - 96.4 fL [facility] MCH 30.3 27.1 - 33.3 pg [facility] MCHC 33.1 32.3 - 35.7 g/dL [facility] RDW CV 13.2 11.1 - 14.9 % [facility] RDW SD 44.7 35.7 - 48.1 fL [facility] NRBC abs 0.00 0.00 - 0.01 K/cumm [facility] Blood 01/07/2025 6:47 AM CDT 01/07/2025 6:52 AM CDT us Fracisco Reyes MD PhD LAB BLOOD ORDERABLES Final Resul t [facility] [place] [address] * (ABNORMAL) Comprehensive metabolic panel (01/07/2025 6:47 AM CDT) [facility] Sodium 138 135 - 145 mmol/L Potassium, pl 5.5(H) 3.3 - 4.9 mmol/L [facility] Comment:Hemolyzed; Potassium value may be falsely elevated by as much as 1.1-1.6 mmol/L. Suggest redraw and reanalysis. Chloride 100 97 - 110 mmol/L [facility] CO2 29 22 - 32 mmol/L [facility] Anion gap 9 2 - 15 mmol/L [facility] BUN 13 6 - 25 mg/dL [facility] Creatinine 0.79(L) 0.80 - 1.30 mg/dL [facility] Glucose 89 70 - 199 mg/dL [facility] Comment: Interpretive Data Fasting glucose >/= [...] 2022. Calcium 9.4 8.5 - 10.3 mg/dL [facility] Bilirubin, total 0.5 0.1 - 1.2 mg/dL [facility] Protein, pl 7.9 6.5 - 8.5 g/dL [facility] Albumin 4.1 3.5 - 5.0 g/dL [facility] Alk phos 68 40 - 130 Units/L [facility] Comment:Hemolyzed; result ma y be falsely decreased ALT 23 7 - 55 Units/L [facility] AST 46 10 - 50 Units/L [facility] Comment:Hemolyzed; result ma y be falsely elevated Blood 01/07/2025 6:47 AM CDT 01/07/2025 6:52 AM CDT us Fracisco Reyes MD PhD LAB BLOOD ORDERABLES Final Resul t [facility] Department [place] [address] * (ABNORMAL) Aerobic and anaerobic culture and gram stain Abscess Neck (01/07/2025 5:43 AM CDT) Direct Specimen Exam Stain: Abundant polymorphonuclear leukocytes seen. No organisms seen. 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 Testing performed by [facility] ([phone]) Specimens submitted from normally sterile body sites [...] MICROBIOLOGY - GENERAL ORDER JOEY Final Result [facility] [place] [address] * eGFR (12/10/2024 10:39 PM CDT) eGFR [...] [place] LAB BLOOD ORDERABL ES Final Result [facility] [place] [address] * (ABNORMAL) Differential, auto (12/10/2024 10:39 PM CDT) Neutrophil abs 7.49(H) 1.50 - 6.50 K/cumm Imm gran abs 0.04 0.00 - 0.10 K/cumm [facility] Lymphocyte abs 2.27 0.80 - 3.30 K/cumm [facility] Monocyte abs 0.85(H) 0.20 - 0.80 K/cumm [facility] Eosinophil abs 0.24 0.00 - 0.50 K/cumm [facility] Basophil abs 0.10 0.00 - 0.10 K/cumm [facility] Neutrophil pct 68.1 % [facility] Comment: Interpretive Data Percent cell count reference ranges are not reported, since discordance with absolute values may lead to misinterpretation of CBC data. Current Interpretive Data was last revised on 2017. Imm gran pct 0.4 % [facility] Comment: Interpretive Data Percent cell count reference ranges are not reported, since discordance with absolute values may lead to misinterpretation of CBC data. Current Interpretive Data was last revised on 2017. Lymphocyte pct 20.7 % [facility] Comment: Interpretive Data Percent cell count reference ranges are not reported, since discordance with absolute values may lead to misinterpretation of CBC data. Current Interpretive Data was last revised on 2017. Monocyte pct 7.7 % [facility] Comment: Interpretive Data Percent cell count reference ranges are not reported, since discordance with absolute values may lead to misinterpretation of CBC data. Current Interpretive Data was last revised on 2017. Eosinophil pct 2.2 % [facility] Comment: Interpretive Data Percent cell count reference ranges are not reported, since discordance with absolute values may lead to misinterpretation of CBC data. Current Interpretive Data was last revised on 2017. Basophil pct 0.9 % [facility] Comment: Interpretive Data Percent cell count reference ranges are not reported, since discordance with absolute values may lead to misinterpretation of CBC data. Current Interpretive Data was last revised on 2017. Blood 12/10/2024 10:3 9 PM CDT 12/10/2024 11:44 PM CDT Nate ROSENTHAL LAB BLOOD ORDERABL ES Final Result [facility] [place] [address] * (ABNORMAL) CBC with auto differential (12/10/2024 10:39 PM CDT) WBC 10.99(H) 3.80 - 9.90 K/cumm Hgb 13.1 13.0 - 17.5 g/dL [facility] Hct 38.6(L) 38.9 - 50.3 % [facility] Plt 244 150 - 400 K/cumm [facility] MPV 10.8 9.1 - 12.3 fL [facility] RBC 4.23(L) 4.30 - 5.80 M/cumm [facility] MCV 91.3 81.3 - 96.4 fL [facility] MCH 31.0 27.1 - 33.3 pg [facility] MCHC 33.9 32.3 - 35.7 g/dL [facility] RDW CV 13.0 11.1 - 14.9 % [facility] RDW SD 43.8 35.7 - 48.1 fL [facility] NRBC abs 0.00 0.00 - 0.01 K/cumm [facility] Blood 12/10/2024 10:3 9 PM CDT 12/10/2024 11:44 PM CDT Nate ROSENTHAL LAB BLOOD ORDERABL ES Final Result [facility] [place] [address] * Basic metabolic panel (12/10/2024 10:39 PM CDT) Sodium 141 135 - 145 mmol/L Potassium, pl 4.0 3.3 - 4.9 mmol/L [facility] Chloride 100 97 - 110 mmol/L [facility] CO2 30 22 - 32 mmol/L [facility] Anion gap 11 2 - 15 mmol/L [facility] BUN 17 6 - 25 mg/dL [facility] Creatinine 0.85 0.80 - 1.30 mg/dL [facility] Glucose 108 70 - 199 mg/dL [facility] Comment: Interpretive Data Fasting glucose >/= [...] 2022. Calcium 9.4 8.5 - 10.3 mg/dL [facility] Blood 12/10/2024 10:3 9 PM CDT 12/10/2024 11:44 PM CDT us Nate ROSENTHAL LAB BLOOD ORDERABL ES Final Result [facility] [place] [address] * US Guided Aspiration Abscess Hematoma Cyst [...] it. Electronically signed by: Hoang Padron M.D. us Nate ROSENTHAL IMG US PROCEDURES Final Result * Cytology (12/10/2024 3:07 PM CDT) Fluid (Fluid, NOS) 3:07 PM CDT Comment:Lt Cervical Abscess Aspiration H/o left sialoadenitis and a rim-enhancing abscess in the left neck Narrative PATHOLOGY [facility] - 12/14/2024 3:15 PM CDT EPIC results best viewed via link to PDF [facility]ology [place], [place] [id number] Note to Patients: This report may contain [...] the details. CYTOPATHOLOGY REPORT FINAL Patient Name: BAUDILIO BRUNO Gender: M : 1985 (Age: 39) Address: [address] [place] [address] Hospital #: [id number] Taken:12/10/2024 Received:12/11/2024 Reported: 12/14/2024 Patient Type: [facility] Inpatient Service: Radiology Location: [place] [address] Physician(s): Nitesh Christie PA FINAL DIAGNOSIS A. Left neck lesion, fine needle aspiration: - Negative for malignancy - Marked acute inflammation pamo/12/14/2024 08:12 By this signature, I attest that the above diagnosis is based upon my personal examination of the slides(and/or other material indicated in the diagnosis). Christ Whatley M.D. Report Electronically Reviewed and Signed Out By Christ Whatley M.D. 12/14/2024 15:15:30 Ryan SantoMarilee Smith MS, CT(ASCP)GALO Gross Description A. Left neck lesion, fine [...] Surgical Pathology and Flow Cytometry Departments at [facility] as part of an ongoing corporate quality manager program and in compliance with federally mandated [...] Surgical Pathology and Flow Cytometry Departments of [facility]. It has not been cleared or approved by the U. S. Food and Drug Administration. Nate ROSENTHAL LAB CYTOLOGY ORDER JOEY Final Result PATHOLOGY [facility] 3rd Floor [place], [place] [phone] * Mycology (fungal) culture and stain Abscess Neck (12/10/2024 2:00 PM CDT) Direct Specimen Exam Stain: No Fungal elements seen. Report Final Report: No growth of fungus [facility] Abscess (Neck) 12/10/2024 2: 00 PM CDT 12/10/2024 6:21 PM CDT Narrative [facility] - 01/07/2025 8:18 AM CDT Specimen received in a sterile container. Testing performed by [facility] ([phone]). Nate ROSENTHAL LAB MICROBIOLOGY - GENERAL ORDERABLES Final Result Performing Organization Address [facility] de Phone Number [facility] [place] [address] * Aerobic and anaerobic culture and gram stain Abscess Neck (12/10/2024 2:00 PM CDT) Direct Specimen Exam Stain: Abundant polymorphonuclear leukocytes seen. No organisms seen. Report Final Report: No growth [facility] Abscess (Neck) 12/10/2024 2: 00 PM CDT 12/10/2024 6:21 PM CDT Narrative [facility] - 12/14/2024 11:47 AM CDT Specimen received in a sterile container. Testing performed by [facility] ([phone]) Specimens submitted from normally sterile body sites [...] GENERAL ORDERABLES Final Result Performing Organization Address [facility] de Phone Number [facility] Department [place] [address] * eGFR (12/09/2024 9:05 PM CDT) eGFR [...] ROSENTHAL LAB BLOOD ORDERABL ES Final Result [facility] [place] [address] * (ABNORMAL) Differential, auto (12/09/2024 9:05 PM CDT) Neutrophil abs 9.01(H) 1.50 - 6.50 K/cumm Imm gran abs 0.04 0.00 - 0.10 K/cumm [facility] Lymphocyte abs 2.53 0.80 - 3.30 K/cumm [facility] Monocyte abs 1.11(H) 0.20 - 0.80 K/cumm [facility] Eosinophil abs 0.12 0.00 - 0.50 K/cumm [facility] Basophil abs 0.09 0.00 - 0.10 K/cumm [facility] Neutrophil pct 69.9 % [facility] Comment: Interpretive Data Percent cell count reference ranges are not reported, since discordance with absolute values may lead to misinterpretation of CBC data. Current Interpretive Data was last revised on 2017. Imm gran pct 0.3 % [facility] Comment: Interpretive Data Percent cell count reference ranges are not reported, since discordance with absolute values may lead to misinterpretation of CBC data. Current Interpretive Data was last revised on 2017. Lymphocyte pct 19.6 % [facility] Comment: Interpretive Data Percent cell count reference ranges are not reported, since discordance with absolute values may lead to misinterpretation of CBC data. Current Interpretive Data was last revised on 2017. Monocyte pct 8.6 % [facility] Comment: Interpretive Data Percent cell count reference ranges are not reported, since discordance with absolute values may lead to misinterpretation of CBC data. Current Interpretive Data was last revised on 2017. Eosinophil pct 0.9 % [facility] Comment: Interpretive Data Percent cell count reference ranges are not reported, since discordance with absolute values may lead to misinterpretation of CBC data. Current Interpretive Data was last revised on 2017. Basophil pct 0.7 % [facility] Comment: Interpretive Data Percent cell count reference ranges are not reported, since discordance with absolute values may lead to misinterpretation of CBC data. Current Interpretive Data was last revised on 2017. Blood 12/09/2024 9:05 PM CDT 12/09/2024 11:08 PM CDT us Nate ROSENTHAL LAB BLOOD ORDERABL ES Final Result [facility] Department [place] [address] * (ABNORMAL) CBC with auto differential (12/09/2024 9:05 PM CDT) WBC 12.90(H) 3.80 - 9.90 K/cumm Hgb 13.2 13.0 - 17.5 g/dL [facility] Hct 38.7(L) 38.9 - 50.3 % [facility] Plt 263 150 - 400 K/cumm [facility] MPV 10.4 9.1 - 12.3 fL [facility] RBC 4.23(L) 4.30 - 5.80 M/cumm [facility] MCV 91.5 81.3 - 96.4 fL [facility] MCH 31.2 27.1 - 33.3 pg [facility] MCHC 34.1 32.3 - 35.7 g/dL [facility] RDW CV 13.2 11.1 - 14.9 % [facility] RDW SD 44.5 35.7 - 48.1 fL [facility] NRBC abs 0.00 0.00 - 0.01 K/cumm [facility] Blood 12/09/2024 9:05 PM CDT 12/09/2024 11:08 PM CDT Nate ROSENTHAL LAB BLOOD ORDERABL ES Final Result [facility] [place] [address] * Basic metabolic panel (12/09/2024 9:05 PM CDT) Sodium 139 135 - 145 mmol/L Potassium, pl 4.1 3.3 - 4.9 mmol/L [facility] Chloride 102 97 - 110 mmol/L [facility] CO2 29 22 - 32 mmol/L [facility] Anion gap 8 2 - 15 mmol/L [facility] BUN 19 6 - 25 mg/dL [facility] Creatinine 0.88 0.80 - 1.30 mg/dL [facility] Glucose 80 70 - 199 mg/dL [facility] Comment: Interpretive Data Fasting glucose >/= [...] 2022. Calcium 9.1 8.5 - 10.3 mg/dL [facility] Blood 12/09/2024 9:05 PM CDT 12/09/2024 11:08 PM CDT Nate ROSENTHAL LAB BLOOD ORDERABL ES Final Result [facility] Department [place] [address] * US Head Neck Soft Tissue (12/09/2024 [...] it. Electronically signed by: Nivia Calderón M.D. Nate ROSENTHAL IMG US PROCEDURES Final Result [...] ORDERABL ES Final Result Performing Organization Address [facility] de Phone Number [facility] Department [place] [address] * (ABNORMAL) Protime-INR (12/09/2024 4:09 AM CDT) Pathologist [facility] PT 14.3(H) 9.7 - 13.0 sec INR 1.32(H) 0.90 - 1.20 [facility] Comment: Interpretive data Oral anticoagulant therapeutic ranges: Venous thromboembolism prophylaxis or treatment: 2.0-3.0 CARDIOLOGY Standard range: 2.0-3.0 High-intensity range: 2.5-3.5 Refer to indication-specific guidelines for appropriate target ranges for prosthetic heart valve replacement. Current interpretive data was last revised on 2019. Blood 12/09/2024 4:09 AM CDT 12/09/2024 5:40 AM CDT Nate ROSENTHAL LAB BLOOD ORDERABL ES Final Result Performing Organization Address [facility] de Phone Number [facility] Department [place] [address] * (ABNORMAL) CBC without differential (12/09/2024 4:09 AM CDT) [facility] WBC 13.58(H) 3.80 - 9.90 K/cumm Hgb 12.3(L) 13.0 - 17.5 g/dL [facility] Hct 35.7(L) 38.9 - 50.3 % [facility] Plt 262 150 - 400 K/cumm [facility] MPV 10.8 9.1 - 12.3 fL [facility] RBC 3.96(L) 4.30 - 5.80 M/cumm [facility] MCV 90.2 81.3 - 96.4 fL [facility] MCH 31.1 27.1 - 33.3 pg [facility] MCHC 34.5 32.3 - 35.7 g/dL [facility] RDW CV 13.2 11.1 - 14.9 % [facility] RDW SD 44.1 35.7 - 48.1 fL [facility] NRBC abs 0.00 0.00 - 0.01 K/cumm [facility] Blood 12/09/2024 4:09 AM CDT 12/09/2024 5:23 AM CDT Nate ROSENTHAL LAB BLOOD ORDERABL ES Final Result [facility] Department [place] [address] * Basic metabolic panel (12/09/2024 4:09 AM CDT) Pathologist [facility] Sodium 138 135 - 145 mmol/L Potassium, pl 3.9 3.3 - 4.9 mmol/L [facility] Chloride 102 97 - 110 mmol/L [facility] CO2 26 22 - 32 mmol/L [facility] Anion gap 10 2 - 15 mmol/L [facility] BUN 17 6 - 25 mg/dL [facility] Creatinine 0.83 0.80 - 1.30 mg/dL [facility] Glucose 96 70 - 199 mg/dL [facility] Comment: Interpretive Data Fasting glucose >/= [...] 2022. Calcium 9.1 8.5 - 10.3 mg/dL [facility] Blood 12/09/2024 4:09 AM CDT 12/09/2024 5:23 AM CDT Nate ROSENTHAL LAB BLOOD ORDERABL ES Final Result [facility] [place] [address] * [place] CRITICAL CARE ILL/INJURED PATIENT INIT 30-74 MIN [...] Streptococcus anginosus No further workup. (.) [facility] GODINEZ Organism STREPTOCOCCUS ANGINOSUS [facility] Organism MIXED UPPER RESPIRATORY TRACT MICROORGANISMS. [facility] Abscess (Neck) 12/08/2024 6: 00 AM CDT 12/08/2024 6:26 AM CDT Narrative [facility] - 12/14/2024 1:53 PM CDT Specimen received on an ESwab. Testing performed by [facility] ([phone]) Specimens submitted from normally sterile body sites [...] - GENERAL ORDERABLES Edited Result - [facility] [place] [address] * Sepsis Lactate w/ Reflex (12/07/2024 9:43 PM CDT) Sepsis Lactate 1.1 0.7 - 2.0 mmol/L Blood 12/07/2024 9:43 PM CDT 12/07/2024 9:45 PM CDT Dick ROSENTHAL LAB BLOOD ORDERABLES Final R esult [facility] [address] [facility] Department [place] [address] * eGFR (12/07/2024 9:43 PM CDT) eGFR [...] MD LAB BLOOD ORDERABLE S Final Result [facility] [address] [facility] Department [place] [address] * (ABNORMAL) Differential, auto (12/07/2024 9:43 PM CDT) Neutrophil abs 9.48(H) 1.50 - 6.50 K/cumm Imm gran abs 0.04 0.00 - 0.10 K/cumm [facility] Lymphocyte abs 2.06 0.80 - 3.30 K/cumm [facility] Monocyte abs 0.97(H) 0.20 - 0.80 K/cumm [facility] Eosinophil abs 0.14 0.00 - 0.50 K/cumm [facility] Basophil abs 0.07 0.00 - 0.10 K/cumm [facility] Neutrophil pct 74.4 % [facility] Comment: Interpretive Data Percent cell count reference ranges are not reported, since discordance with absolute values may lead to misinterpretation of CBC data. Current Interpretive Data was last revised on 2017. Imm gran pct 0.3 % [facility] Comment: Interpretive Data Percent cell count reference ranges are not reported, since discordance with absolute values may lead to misinterpretation of CBC data. Current Interpretive Data was last revised on 2017. Lymphocyte pct 16.1 % [facility] Comment: Interpretive Data Percent cell count reference ranges are not reported, since discordance with absolute values may lead to misinterpretation of CBC data. Current Interpretive Data was last revised on 2017. Monocyte pct 7.6 % [facility] Comment: Interpretive Data Percent cell count reference ranges are not reported, since discordance with absolute values may lead to misinterpretation of CBC data. Current Interpretive Data was last revised on 2017. Eosinophil pct 1.1 % [facility] Comment: Interpretive Data Percent cell count reference ranges are not reported, since discordance with absolute values may lead to misinterpretation of CBC data. Current Interpretive Data was last revised on 2017. Basophil pct 0.5 % [facility] Comment: Interpretive Data Percent cell count reference ranges are not reported, since discordance with absolute values may lead to misinterpretation of CBC data. Current Interpretive Data was last revised on 2017. Blood 12/07/2024 9:43 PM CDT 12/07/2024 9:46 PM CDT us Evan Reynolds MD LAB BLOOD ORDERABLE S Final Result [facility] [address] [facility] Department [place] [address] * (ABNORMAL) CBC with auto differential (12/07/2024 9:43 PM CDT) WBC 12.76(H) 3.80 - 9.90 K/cumm Hgb 14.3 13.0 - 17.5 g/dL [facility] Hct 42.2 38.9 - 50.3 % [facility] Plt 243 150 - 400 K/cumm [facility] MPV 9.7 9.1 - 12.3 fL [facility] RBC 4.65 4.30 - 5.80 M/cumm [facility] MCV 90.8 81.3 - 96.4 fL [facility] MCH 30.8 27.1 - 33.3 pg [facility] MCHC 33.9 32.3 - 35.7 g/dL [facility] RDW CV 13.3 11.1 - 14.9 % [facility] RDW SD 44.6 35.7 - 48.1 fL [facility] NRBC abs 0.00 0.00 - 0.01 K/cumm [facility] Blood 12/07/2024 9:43 PM CDT 12/07/2024 9:46 PM CDT us Evan Reynolds MD LAB BLOOD ORDERABLE S Final Result [facility] [address] [facility] Department [place] [address] * Comprehensive metabolic panel (12/07/2024 9:43 PM CDT) Sodium 135 135 - 145 mmol/L Potassium, pl 3.8 3.3 - 4.9 mmol/L [facility] Chloride 99 97 - 110 mmol/L [facility] CO2 24 22 - 32 mmol/L [facility] Anion gap 12 2 - 15 mmol/L [facility] BUN 16 6 - 25 mg/dL [facility] Creatinine 0.83 0.80 - 1.30 mg/dL [facility] Glucose 118 70 - 199 mg/dL [facility] Comment: Interpretive Data Fasting glucose >/= [...] 2022. Calcium 9.5 8.5 - 10.3 mg/dL [facility] Bilirubin, total 0.7 0.1 - 1.2 mg/dL [facility] Protein, pl 7.8 6.5 - 8.5 g/dL [facility] Albumin 4.2 3.5 - 5.0 g/dL [facility] Alk phos 58 40 - 130 Units/L [facility] ALT 17 7 - 55 Units/L [facility] AST 20 10 - 50 Units/L [facility] Blood 12/07/2024 9:43 PM CDT 12/07/2024 9:46 PM CDT Evan Reynolds MD LAB BLOOD ORDERABLE S Final Result [facility] [address] [facility] Department [place] [address] * CT Neck Soft Tissue W Contrast [...] Pt states he has been seen at [facility] and was prescribed abx. I then saw [...] Den Barney M.D. BS T: Report ID: [id number] Reading Location: [id number] Procedure Note Den Barney MD - 12/07/2024 EXAM DESCRIPTION: CT SOFT TISSUE NECK W CONTRAST REASON FOR STUDY: left sided neck swelling, possible abscess Pt to ED I have a salivary gland that's been clogged for 4 days Ptstates he has been seen at [facility] and was prescribed abx. I then saw [...] Den Barney M.D. BS T: Report ID: [id number] Reading Location: [place] [address] us Maryana [address]ENTHAL IMG CT PROCEDURES Final Re [...] was last reviewed 2021. Testing performed by: [facility], [address] [place] [address], [place]., [address] Blood 12/06/2024 8:14 AM CDT 12/06/2024 8:18 AM CDT us Jose Caal MD LAB BLOOD ORDERABLES Isa ayala Result [facility] [address] [facility] Department [place] [address] * (ABNORMAL) Differential, auto (12/06/2024 8:14 AM CDT) Neutrophil abs 11.05(H) 1.50 - 6.50 K/cumm Comment:Testing performed by : [address] [address] Imm gran abs 0.11(H) 0.00 - 0.10 K/cumm [facility] Comment:Testing performed by : [address] [address] Lymphocyte abs 2.65 0.80 - 3.30 K/cumm [facility] Comment:Testing performed by : [address] [address] Monocyte abs 1.01(H) 0.20 - 0.80 K/cumm [facility] Comment:Testing performed by : [address] [address] Eosinophil abs 0.02 0.00 - 0.50 K/cumm [facility] Comment:Testing performed by : [address] [address] Basophil abs 0.08 0.00 - 0.10 K/cumm [facility] Comment:Testing performed by : [address] [address] Neutrophil pct 74.1 % [facility] Comment: Interpretive Data Percent cell count reference ranges are not reported, since discordance with absolute values may lead to misinterpretation of CBC data. Current Interpretive Data was last revised on 2017. Testing performed by: [address] [address] Imm gran pct 0.7 % [facility] Comment: Interpretive Data Percent cell count reference ranges are not reported, since discordance with absolute values may lead to misinterpretation of CBC data. Current Interpretive Data was last revised on 2017. Testing performed by: [address] [address] Lymphocyte pct 17.8 % [facility] Comment: Interpretive Data Percent cell count reference ranges are not reported, since discordance with absolute values may lead to misinterpretation of CBC data. Current Interpretive Data was last revised on 2017. Testing performed by: [address] [address] Monocyte pct 6.8 % [facility] Comment: Interpretive Data Percent cell count reference ranges are not reported, since discordance with absolute values may lead to misinterpretation of CBC data. Current Interpretive Data was last revised on 2017. Testing performed by: [address] [address] Eosinophil pct 0.1 % [facility] Comment: Interpretive Data Percent cell count reference ranges are not reported, since discordance with absolute values may lead to misinterpretation of CBC data. Current Interpretive Data was last revised on 2017. Testing performed by: [address] [address] Basophil pct 0.5 % [facility] Comment: Interpretive Data Percent cell count reference ranges are not reported, since discordance with absolute values may lead to misinterpretation of CBC data. Current Interpretive Data was last revised on 2017. Testing performed by: [address] [address] Blood 12/06/2024 8:14 AM CDT 12/06/2024 8:19 AM CDT us Jose Caal MD LAB BLOOD ORDERABLES Isa ayala Result [facility] [address] [facility] Department [place] [address] * (ABNORMAL) CBC with auto differential (12/06/2024 8:14 AM CDT) WBC 14.92(H) 3.80 - 9.90 K/cumm Comment:Testing performed by : [address] [address] Hgb 15.1 13.0 - 17.5 g/dL [facility] Comment:Testing performed by : [address], [address] Hct 44.7 38.9 - 50.3 % [facility] Comment:Testing performed by : [address], [address] Plt 264 150 - 400 K/cumm [facility] Comment:Testing performed by : [address], [address] MPV 9.6 9.1 - 12.3 fL [facility] Comment:Testing performed by : [address], [address] RBC 4.89 4.30 - 5.80 M/cumm [facility] Comment:Testing performed by : [address], [address] MCV 91.4 81.3 - 96.4 fL [facility] Comment:Testing performed by : [address], [address] MCH 30.9 27.1 - 33.3 pg [facility] Comment:Testing performed by : [address], [address] MCHC 33.8 32.3 - 35.7 g/dL [facility] Comment:Testing performed by : [address], [address] RDW CV 13.5 11.1 - 14.9 % [facility] Comment:Testing performed by : [address], [address] RDW SD 45.7 35.7 - 48.1 fL [facility] Comment:Testing performed by : [address], [address] NRBC abs 0.00 0.00 - 0.01 K/cumm [facility] Comment:Testing performed by : [address], [address] Blood 12/06/2024 8:14 AM CDT 12/06/2024 8:19 AM CDT us Jose Caal MD LAB BLOOD ORDERABLES Isa ayala Result [facility] [address] [facility] Department [place] [address] * Comprehensive metabolic panel (12/06/2024 8:14 AM CDT) Sodium 136 135 - 145 mmol/L Comment:Testing performed by : [address], [place]., [address] Potassium, pl 4.2 3.3 - 4.9 mmol/L [facility] Comment: Hemolyzed; Potassium value may be falsely elevated by as much as 1.0 mmol/L. Suggest redraw and reanalysis. Testing performed by: [address], [place]., [address] Chloride 101 97 - 110 mmol/L [facility] Comment:Testing performed by : [address], [place]., [address] CO2 23 22 - 32 mmol/L [facility] Comment:Testing performed by : [address] [address] Anion gap 12 2 - 15 mmol/L [facility] Comment:Testing performed by : [address] [address] BUN 11 6 - 25 mg/dL [facility] Comment:Testing performed by : [address] [address] Creatinine 0.91 0.80 - 1.30 mg/dL [facility] Comment:Testing performed by : [address] [address] Glucose 98 70 - 199 mg/dL [facility] Comment: Interpretive Data Fasting glucose >/= 126 [...] was last revised 2022. Testing performed by: [address] [address] Calcium 10.1 8.5 - 10.3 mg/dL [facility] Comment:Testing performed by : [address] [address] Bilirubin, total 0.8 0.1 - 1.2 mg/dL [facility] Comment:Testing performed by : [address] [address] Protein, pl 8.5 6.5 - 8.5 g/dL [facility] Comment:Testing performed by : [address] [address] Albumin 4.8 3.5 - 5.0 g/dL [facility] Comment:Testing performed by : [address] [address] [address] Alk phos 67 40 - 130 Units/L [facility] Comment:Testing performed by : [address] [address] ALT 26 7 - 55 Units/L [facility] Comment:Testing performed by : [address] [address] AST 31 10 - 50 Units/L [facility] Comment: Hemolyzed; result may be falsely elevated Testing performed by: [address] [address] Blood 12/06/2024 8:14 AM CDT 12/06/2024 8:18 AM CDT us Jose Caal MD LAB BLOOD ORDERABLES Isa l Result [facility] [address] [facility] Department [place] [address] from Last 3 Months Advance Directives For more information, please contact: [phone] * Full Code (Latest Code Status on File) Date Activated Date Inactivated Comments 01/07/2025 9:12 AM 01/10/2025 5:24 PM * Full Code Date Activated Date Inactivated Comments 12/08/2024 4:30 AM 12/11/2024 4:25 PM Care Teams Payroll Director Relationship Specialty Start Date End Date No, Physician PCP - General 05/13/23
[2025-01-31 07:00] VITALS: BP 130/87; PULSE 83; RESP 17; TEMP 36.7; O2SAT 100
--- NOTE | 2025-01-31 07:21 | ED.GENADULT ---
HPI - General Adult General Chief complaint: Unspecified Stated complaint: post op swelling Time Seen by Provider: 01/31/25 06:55 History of Present Illness HPI narrative: 39-year-old male present to the emergency department for evaluation for left-sided neck swelling. Patient had a gland removed by ENT on 01/15 at [place]. Patient is declining to have IV access and IV labs. Patient states he does not trust our human resources representative. Patient states he did speak to his ENT at [place] and they stated he had no elevated white blood cell count. I discussed the need for imaging and patient continues to decline. Patient eloped from the emergency department prior to signing AMA forms. Related Data Allergies Allergy/AdvReac Type Severity Reaction Status Date / Time tramadol AdvReac Severe Nausea and Verified 01/31/25 07:05 Vomiting codeine AdvReac Intermediate N/V Verified 01/31/25 07:05 Review of Systems Review of Systems: All systems reviewed & are unremarkable except as noted in HPI and below PMFSH Past Medical History Medical History Male circumcision Surgical History Surgical History [place] teeth extracted Social History Social History Smoking status: Current every day smoker Tobacco type: cigarettes Alcohol intake: former Substance use: never Living arrangements: alone 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 Gender identity (if verbalized by the patient): Male Exam Narrative: APPEARANCE: Well appearing, no pain, no distress, well-nourished. HEAD: normocephalic, atraumatic. EYES: PERRLA/EOMI, conjunctivae clear. NOSE: Normal no drainage NECK: Supple. No adenopathy, no masses. MUSCULOSKELETAL: Moves all extremities. Strength/ROM intact, No edema, No calf tenderness. NEURO: Alert. Cranial nerves II through XII intact. Good gait. Good coordination SKIN: Erythema and swelling at left-sided neck incision Course Vital Signs Vital signs: Vital Signs Temperature 98.1 F 01/31/25 07:00 Pulse Rate 83 01/31/25 07:00 Respiratory Rate 17 01/31/25 07:00 Blood Pressure 130/87 01/31/25 07:00 Pulse Oximetry 100 01/31/25 07:00 Oxygen Delivery Room Air 01/31/25 07:00 Temperature 98.1 F 01/31/25 07:00 Pulse Rate 83 01/31/25 07:00 Respiratory Rate 17 01/31/25 07:00 Blood Pressure 130/87 01/31/25 07:00 Pulse Oximetry 100 01/31/25 07:00 Oxygen Delivery Room Air 01/31/25 07:00 Medical Decision Making MDM Narrative Medical decision making narrative: Patient eloped from the emergency department after being evaluated Vital Signs Vital Signs: Vital Signs Temperature 98.1 F 01/31/25 07:00 Pulse Rate 83 01/31/25 07:00 Respiratory Rate 17 01/31/25 07:00 Blood Pressure 130/87 01/31/25 07:00 Pulse Oximetry 100 01/31/25 07:00 Oxygen Delivery Room Air 01/31/25 07:00 Temperature 98.1 F 01/31/25 07:00 Pulse Rate 83 01/31/25 07:00 Respiratory Rate 17 01/31/25 07:00 Blood Pressure 130/87 01/31/25 07:00 Pulse Oximetry 100 01/31/25 07:00 Oxygen Delivery Room Air 01/31/25 07:00 Discharge Plan Discharge Clinical Impression: Swollen neck, Post-operative infection Patient Disposition: Elopement After Seen by Prov Patient Language: Turkmen Prescriptions: No Action methylprednisolone [Medrol ([place])] 4 mg tablets,dose pack See Rx Instructions PO PER PKG DIR Qty: 21 0RF Rx Instructions: PO PER PKG DIR Follow-up/Referrals: UNKNOWN,DOCTOR [Primary Care Provider] -
--- NOTE | 2025-01-31 07:25 | PC.NURSE ---
Pt refused blood work and IV. Pt walked out.
--- OUTSIDE RECORDS SUMMARY | 2025-01-31 07:44 | XMS_ITS | Referral Summary ---
Author Organization [facility] [address] Address [address] [place] [address] Care Team Providers Care Hat Checker Name Role Phone No, Physician Primary Care Provider [phone] Encounters Date Type Department Care Team Description 01/30/2025 Telephone Otolaryngology Mando Mcculolugh MD 01/26/2025 2:41 PM CDT - 01/26/2025 11:59 PM CDT Hospital Encounter [address] [address] Abscess; Abscess of skin of neck Discharge Disposition: Discharge to home or self care 01/26/2025 Orders Only [facility] ([facility]) - [facility] ENT [address] [place] [address] Advanced Medicine 11th [place] [address] [place] [address] Stacei Can MD Abscess of skin of neck (Primary Dx); Abscess 01/26/2025 9:00 AM CDT Office Visit [facility] ([facility]) - [facility] ENT [address] [place] [address] Advanced Medicine 11th [place] [address] [place] [address] Stacie Can MD Submandibular sialoadenitis (Primary Dx); Abscess of skin of neck 01/15/2025 9:05 AM CDT - 01/15/2025 12:00 PM CDT Surgery [facility] Operating [facility] [address] [place] [phone] Stacie Can MD EXCISION SUBMANDIBULAR GLAND 01/15/2025 9:31 AM CDT Anesthesia Event [facility] Operating Room [facility] [address] [place] [address] Bharat Jasmine MD Heuvelman, Katherine Marie, NP 01/15/2025 6:33 AM CDT - 01/15/2025 3:57 PM CDT Hospital Encounter [facility] Operating Room [facility] [address] [place] [phone] Stacie Can MD Submandibular sialolithiasis; Submandibular sialoadenitis; Abscess of submandibular gland Discharge Disposition: Discharge to home or self care 01/14/2025 Telephone [facility] ([facility] - [facility] ENT [address] [facility] Advanced Medicine 11th [place] [address] [place] [address] Michelle Rolle, KARELY 01/11/2025 Telephone [facility] ([facility]) - [facility] ENT [address] [facility] Advanced Medicine 11th [place] [address] [place] [address] Michelle Rolle, KARELY 01/07/2025 3:30 AM CDT - 01/10/2025 1:24 PM CDT Hospital Encounter [facility] [address] [place] [address] Bessy Shore MD Van [place], MD Shruthi Roper Sean C., MD Petrovic Elbaz, Mirjana, MD Sialadenitis (Primary Dx); Neck abscess Discharge Disposition: Discharge to home or self care 01/05/2025 Telephone [facility] ([facility] - [facility] ENT [address] [facility] Advanced Medicine 11th [place] [address] [place] [address] Michelle Rolle CMA 01/05/2025 Telephone [facility] ([facility]) - [facility] ENT [address] [facility] Advanced Medicine 11th [place] [address] [place] [address] Michelle Rolle CMA 01/05/2025 12:00 PM CDT Telemedicine [facility] ENT [address] [facility] [address] [place] [phone] Stacie Can MD Submandibular sialoadenitis (Primary Dx); Sialolithiasis 12/16/2024 Telephone [facility] Advanced [facility] ([facility]) - [facility] ENT [address] [facility] Advanced [facility] 11th [place] [address] [place] [address] Michelle Rolle CMA 12/16/2024 Telephone [facility] Otolaryngology [address] [place] [address] Mikayla Abebe MS 12/08/2024 1:28 AM CDT - 12/11/2024 12:19 PM CDT Hospital Encounter [address] [phone] Keyur hPillip MD Baum, MD Laya Mckeon Sarakshi, MD Abscess (Primary Dx) Discharge Disposition: Discharge to home or self care 12/07/2024 8:57 PM CDT - 12/07/2024 10:41 PM CDT Emergency [address] [address] Sialoadenitis (Primary Dx); Submandibular abscess Discharge Disposition: Discharge to a short term hospital for IP 12/07/2024 Telephone [facility] ENT [address] [facility] [address] [place] [phone] Michelle Rolle CMA 12/06/2024 8:19 AM CDT - 12/06/2024 9:40 AM CDT Emergency [facility] Emergency Department [address] [place] [address] Jose Caal MD Submandibular sialoadenitis (Primary Dx) [...] uit: Not Asked; Counseling Given: Not Answered [facility] Teleportities Answer Date Recorded In the past 12 months has th e [employer], gas, oil, or water Naked threatened to shut off services in your [...] often do you attend chur ch or restorationist services? Never 01/08/2025 Do you belong to any clubs o r organizations such as baptist groups, unions, fraternal or athletic groups, or [...] any time in the past 12 m [facility], were you homeless or living in a correction (including now)? No 01/08/2025 Personal Safety Answer [...] sialolithiasis Submandibular sialoadenitis Abscess of submandibular gland GA AN PROCEDURE PLACEHOLDER Routine 01/15/2025 10:00 AM CDT GA AN ELECTIVE ENDOTRACHEAL AIRWAY Routine 01/15/2025 10:00 [...] CDT PROTIME-INR Routine 12/09/2024 4:09 AM CDT GA CRITICAL CARE ILL/INJURED PATIENT INIT 30-74 MIN [...] seen. Report Final Report: No growth [facility] Abscess (Neck, left) 01/26/2025 3:22 PM CDT 01/26/2025 3:55 PM CDT Narrative [facility] - 01/29/2025 12:18 PM CDT Neck abscess Testing performed by [facility] Microbiology Laboratory ([phone]) Specimens submitted from normally sterile body sites [...] - GEN ERAL ORDERABLES Final Result [facility] Department [place] [address] * Surgical pathology (01/15/2025 11:27 AM CDT) Tissue (Sublingual/Subma ndibular Gland) 01/15/2025 11:27 AM CDT Narrative PATHOLOGY [facility] - 01/20/2025 12:11 PM CDT EPIC results best viewed via link to PDF [facility] of Surgical Pathology One [facility], [place] [address] Note to Patients: This report may contain [...] Gender: M : 1985 (Age: 39) Address: [address] [place], [place] [id number] Hospital #: [id number] Taken:01/15/2025 Received:01/15/2025 Reported: 01/20/2025 Patient Type: [facility] Service: Surgery Location: Physician(s): Stacie Can [...] Surgical Pathology and Flow Cytometry Departments at [facility] as part of an ongoing quality assistant program and in compliance with federally mandated [...] Surgical Pathology and Flow Cytometry Departments of [facility]. It has not been cleared or approved by the U. S. Food and Drug Administration. IMAGES AND SCANNED DOCUMENTS, IF INCLUDED, ONLY VIEWABLE IN PDF VERSION OF REPORT Stacie Can MD LAB PATHOLOGY ORDERABL ES Final Result PATHOLOGY [facility] 3rd Floor [place], [place] [phone] * GA AN ELECTIVE ENDOTRACHEAL AIRWAY, GA AN PROCEDURE PLACEHOLDER (01/15/2025 10:00 AM CDT) [...] LAB BLOOD ORDERABLES F inal Result [facility] [place] [address] * (ABNORMAL) Differential, auto (01/08/2025 9:20 PM [...] CERNER BJ Neutrophil pct 56.3 % [facility] Comment: Interpretive Data Percent cell count reference ranges are not reported, since discordance with absolute values may lead to misinterpretation of CBC data. Current Interpretive Data was last revised on 2017. Imm gran pct 0.4 % [facility] Comment: Interpretive Data Percent cell count reference ranges are not reported, since discordance with absolute values may lead to misinterpretation of CBC data. Current Interpretive Data was last revised on 2017. Lymphocyte pct 27.7 % [facility] Comment: Interpretive Data Percent cell count reference ranges are not reported, since discordance with absolute values may lead to misinterpretation of CBC data. Current Interpretive Data was last revised on 2017. Monocyte pct 7.5 % [facility] Comment: Interpretive Data Percent cell count reference ranges are not reported, since discordance with absolute values may lead to misinterpretation of CBC data. Current Interpretive Data was last revised on 2017. Eosinophil pct 6.8 % [facility] Comment: Interpretive Data Percent cell count reference ranges are not reported, since discordance with absolute values may lead to misinterpretation of CBC data. Current Interpretive Data was last revised on 2017. Basophil pct 1.3 % [facility] Comment: Interpretive Data Percent cell count reference ranges are not reported, since discordance with absolute values may lead to misinterpretation of CBC data. Current Interpretive Data was last revised on 2017. Blood 01/08/2025 9:20 PM CDT 01/08/2025 10:01 PM CDT Cyn Levy MD LAB BLOOD ORDERABLES F inal Result Performing Organization Address City/[facility]/ZIP Co de Phone Number [facility] Department [place] [address] * CBC with auto differential (01/08/2025 9:20 PM CDT) [facility] WBC 8.24 3.80 - 9.90 K/cumm Hgb 13.4 13.0 - 17.5 g/dL [facility] Hct 39.6 38.9 - 50.3 % [facility] Plt 242 150 - 400 K/cumm [facility] Comment:No clot detected in sample. MPV 10.7 9.1 - 12.3 fL [facility] RBC 4.35 4.30 - 5.80 M/cumm [facility] MCV 91.0 81.3 - 96.4 fL [facility] MCH 30.8 27.1 - 33.3 pg [facility] MCHC 33.8 32.3 - 35.7 g/dL [facility] RDW CV 13.0 11.1 - 14.9 % [facility] RDW SD 43.5 35.7 - 48.1 fL [facility] NRBC abs 0.00 0.00 - 0.01 K/cumm [facility] Blood 01/08/2025 9:20 PM CDT 01/08/2025 10:01 PM CDT Cyn Levy MD LAB BLOOD ORDERABLES F inal Result [facility] Department [place] [address] * Basic metabolic panel (01/08/2025 9:20 PM CDT) [facility] Sodium 140 135 - 145 mmol/L Potassium, pl 4.2 3.3 - 4.9 mmol/L [facility] Comment:Hemolyzed; Potassium value may be falsely elevated by as much as 0.6-1.0 mmol/L. Suggest redraw and reanalysis. Chloride 103 97 - 110 mmol/L [facility] CO2 29 22 - 32 mmol/L [facility] Anion gap 8 2 - 15 mmol/L [facility] BUN 15 6 - 25 mg/dL [facility] Creatinine 0.83 0.80 - 1.30 mg/dL [facility] Glucose 88 70 - 199 mg/dL [facility] Comment: Interpretive Data Fasting glucose >/= [...] Calcium 9.2 8.5 - 10.3 mg/dL [facility] Blood 01/08/2025 9:20 PM CDT 01/08/2025 9:59 PM CDT us Cyn Levy MD LAB BLOOD ORDERABLES F inal Result [facility] Department [place] [address] * (ABNORMAL) Aerobic and anaerobic culture and gram stain Abscess Neck (01/08/2025 2:27 PM CDT) Direct Specimen Exam Stain: Moderate polymorphonuclear leukocytes seen. No organisms seen. Report Final Report: Few Coagulase negative Staphylococcus species No further workup. (.) [facility] Organism COAGULASE NEGATIVE STAPHYLOCOCCUS SPECIES [facility] Abscess (Neck) 01/08/2025 2: 27 PM CDT 01/08/2025 3:02 PM CDT Narrative [facility] - 01/11/2025 1:58 PM CDT Specimen received on an ESwab. Testing performed by [facility] Microbiology Laboratory ([phone]) Specimens submitted from normally sterile body sites [...] ERAL ORDERABLES Final Result [facility] Department [place] [address] * eGFR (01/08/2025 8:59 AM CDT) eGFR [...] MD LAB BLOOD ORDERABLES F inal Result [facility] Department [place] [address] * Basic metabolic panel (01/08/2025 8:59 AM CDT) Pathologist [facility] Sodium 139 135 - 145 mmol/L Potassium, pl 4.0 3.3 - 4.9 mmol/L [facility] Chloride 102 97 - 110 mmol/L [facility] CO2 29 22 - 32 mmol/L [facility] Anion gap 8 2 - 15 mmol/L [facility] BUN 11 6 - 25 mg/dL [facility] Creatinine 0.80 0.80 - 1.30 mg/dL [facility] Glucose 84 70 - 199 mg/dL [facility] Comment: Interpretive Data Fasting glucose >/= [...] Calcium 9.9 8.5 - 10.3 mg/dL [facility] Blood 01/08/2025 8:59 AM CDT 01/08/2025 9:50 AM CDT us Cyn Levy MD LAB BLOOD ORDERABLES F inal Result [facility] Department [place] [address] * eGFR (01/07/2025 6:47 AM CDT) [facility] eGFR >90 >=60 mL/min/1. 73 m2 Comment: [...] LAB BLOOD ORDERABLES Final Resul t [facility] Department [place] [address] * Differential, auto (01/07/2025 6:47 AM CDT) Neutrophil abs 5.34 1.50 - 6.50 K/cumm Imm gran abs 0.01 0.00 - 0.10 K/cumm [facility] Lymphocyte abs 1.58 0.80 - 3.30 K/cumm [facility] Monocyte abs 0.44 0.20 - 0.80 K/cumm [facility] Eosinophil abs 0.45 0.00 - 0.50 K/cumm [facility] Basophil abs 0.09 0.00 - 0.10 K/cumm [facility] Neutrophil pct 67.5 % [facility] Comment: Interpretive Data Percent cell count reference ranges are not reported, since discordance with absolute values may lead to misinterpretation of CBC data. Current Interpretive Data was last revised on 2017. Imm gran pct 0.1 % [facility] Comment: Interpretive Data Percent cell count reference ranges are not reported, since discordance with absolute values may lead to misinterpretation of CBC data. Current Interpretive Data was last revised on 2017. Lymphocyte pct 20.0 % [facility] Comment: Interpretive Data Percent cell count reference ranges are not reported, since discordance with absolute values may lead to misinterpretation of CBC data. Current Interpretive Data was last revised on 2017. Monocyte pct 5.6 % [facility] Comment: Interpretive Data Percent cell count reference ranges are not reported, since discordance with absolute values may lead to misinterpretation of CBC data. Current Interpretive Data was last revised on 2017. Eosinophil pct 5.7 % [facility] Comment: Interpretive Data Percent cell count reference ranges are not reported, since discordance with absolute values may lead to misinterpretation of CBC data. Current Interpretive Data was last revised on 2017. Basophil pct 1.1 % [facility] Comment: Interpretive Data Percent cell count reference ranges are not reported, since discordance with absolute values may lead to misinterpretation of CBC data. Current Interpretive Data was last revised on 2017. Blood 01/07/2025 6:47 AM CDT 01/07/2025 6:52 AM CDT us Fracisco Reyes MD PhD LAB BLOOD ORDERABLES Final Resul t [facility] Department [place] [address] * (ABNORMAL) CBC with auto differential (01/07/2025 6:47 AM CDT) WBC 7.91 3.80 - 9.90 K/cumm Hgb 13.7 13.0 - 17.5 g/dL [facility] Hct 41.4 38.9 - 50.3 % [facility] Plt 114(L) 150 - 400 K/cumm [facility] MPV 11.2 9.1 - 12.3 fL [facility] RBC 4.52 4.30 - 5.80 M/cumm [facility] MCV 91.6 81.3 - 96.4 fL [facility] MCH 30.3 27.1 - 33.3 pg [facility] MCHC 33.1 32.3 - 35.7 g/dL [facility] RDW CV 13.2 11.1 - 14.9 % [facility] RDW SD 44.7 35.7 - 48.1 fL [facility] NRBC abs 0.00 0.00 - 0.01 K/cumm [facility] Blood 01/07/2025 6:47 AM CDT 01/07/2025 6:52 AM CDT us Fracisco Reyes MD PhD LAB BLOOD ORDERABLES Final Resul t [facility] Department [place] [address] * (ABNORMAL) Comprehensive metabolic panel (01/07/2025 6:47 AM CDT) Sodium 138 135 - 145 mmol/L Potassium, pl 5.5(H) 3.3 - 4.9 mmol/L [facility] Comment:Hemolyzed; Potassium value may be falsely elevated by as much as 1.1-1.6 mmol/L. Suggest redraw and reanalysis. Chloride 100 97 - 110 mmol/L [facility] CO2 29 22 - 32 mmol/L [facility] Anion gap 9 2 - 15 mmol/L [facility] BUN 13 6 - 25 mg/dL [facility] Creatinine 0.79(L) 0.80 - 1.30 mg/dL [facility] Glucose 89 70 - 199 mg/dL [facility] Comment: Interpretive Data Fasting glucose >/= [...] Calcium 9.4 8.5 - 10.3 mg/dL [facility] Bilirubin, total 0.5 0.1 - 1.2 mg/dL [facility] Protein, pl 7.9 6.5 - 8.5 g/dL [facility] Albumin 4.1 3.5 - 5.0 g/dL [facility] Alk phos 68 40 - 130 Units/L [facility] Comment:Hemolyzed; result ma y be falsely decreased ALT 23 7 - 55 Units/L [facility] AST 46 10 - 50 Units/L [facility] Comment:Hemolyzed; result ma y be falsely elevated Blood 01/07/2025 6:47 AM CDT 01/07/2025 6:52 AM CDT Fracisco Reyes MD PhD LAB BLOOD ORDERABLES Final Resul t [facility] Department [place] [address] * (ABNORMAL) Aerobic and anaerobic culture and gram stain Abscess Neck (01/07/2025 5:43 AM CDT) Direct Specimen Exam Stain: Abundant polymorphonuclear leukocytes seen. No organisms seen. 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 Testing performed by [facility] Microbiology Laboratory ([phone]) Specimens submitted from normally sterile body sites [...] ORDER JOEY Final Result Performing Organization Address City/[facility] Co de Phone Number [facility] Department [place] [address] * eGFR (12/10/2024 10:39 PM CDT) eGFR [...] ORDERABL ES Final Result Performing Organization Address City/[facility]/ZIP Co de Phone Number [facility] Department [place] [address] * (ABNORMAL) Differential, auto (12/10/2024 10:39 PM CDT) Neutrophil abs 7.49(H) 1.50 - 6.50 K/cumm Imm gran abs 0.04 0.00 - 0.10 K/cumm [facility] Lymphocyte abs 2.27 0.80 - 3.30 K/cumm [facility] Monocyte abs 0.85(H) 0.20 - 0.80 K/cumm [facility] Eosinophil abs 0.24 0.00 - 0.50 K/cumm [facility] Basophil abs 0.10 0.00 - 0.10 K/cumm [facility] Neutrophil pct 68.1 % [facility] Comment: Interpretive Data Percent cell count reference ranges are not reported, since discordance with absolute values may lead to misinterpretation of CBC data. Current Interpretive Data was last revised on 2017. Imm gran pct 0.4 % [facility] Comment: Interpretive Data Percent cell count reference ranges are not reported, since discordance with absolute values may lead to misinterpretation of CBC data. Current Interpretive Data was last revised on 2017. Lymphocyte pct 20.7 % [facility] Comment: Interpretive Data Percent cell count reference ranges are not reported, since discordance with absolute values may lead to misinterpretation of CBC data. Current Interpretive Data was last revised on 2017. Monocyte pct 7.7 % [facility] Comment: Interpretive Data Percent cell count reference ranges are not reported, since discordance with absolute values may lead to misinterpretation of CBC data. Current Interpretive Data was last revised on 2017. Eosinophil pct 2.2 % [facility] Comment: Interpretive Data Percent cell count reference ranges are not reported, since discordance with absolute values may lead to misinterpretation of CBC data. Current Interpretive Data was last revised on 2017. Basophil pct 0.9 % [facility] Comment: Interpretive Data Percent cell count reference ranges are not reported, since discordance with absolute values may lead to misinterpretation of CBC data. Current Interpretive Data was last revised on 2017. Blood 12/10/2024 10:3 9 PM CDT 12/10/2024 11:44 PM CDT us Nate ROSENTHAL LAB BLOOD ORDERABL ES Final Result [facility] Department [place] [address] * (ABNORMAL) CBC with auto differential (12/10/2024 10:39 PM CDT) [facility] WBC 10.99(H) 3.80 - 9.90 K/cumm Hgb 13.1 13.0 - 17.5 g/dL [facility] Hct 38.6(L) 38.9 - 50.3 % [facility] Plt 244 150 - 400 K/cumm [facility] MPV 10.8 9.1 - 12.3 fL [facility] RBC 4.23(L) 4.30 - 5.80 M/cumm [facility] MCV 91.3 81.3 - 96.4 fL [facility] MCH 31.0 27.1 - 33.3 pg [facility] MCHC 33.9 32.3 - 35.7 g/dL [facility] RDW CV 13.0 11.1 - 14.9 % [facility] RDW SD 43.8 35.7 - 48.1 fL [facility] NRBC abs 0.00 0.00 - 0.01 K/cumm [facility] Blood 12/10/2024 10:3 9 PM CDT 12/10/2024 11:44 PM CDT us Nate ROSENTHAL LAB BLOOD ORDERABL ES Final Result [facility] Department [place] [address] * Basic metabolic panel (12/10/2024 10:39 PM CDT) [facility] Sodium 141 135 - 145 mmol/L Potassium, pl 4.0 3.3 - 4.9 mmol/L [facility] Chloride 100 97 - 110 mmol/L [facility] CO2 30 22 - 32 mmol/L [facility] Anion gap 11 2 - 15 mmol/L [facility] BUN 17 6 - 25 mg/dL [facility] Creatinine 0.85 0.80 - 1.30 mg/dL [facility] Glucose 108 70 - 199 mg/dL [facility] Comment: Interpretive Data Fasting glucose >/= [...] Calcium 9.4 8.5 - 10.3 mg/dL [facility] Blood 12/10/2024 10:3 9 PM CDT 12/10/2024 11:44 PM CDT us Nate ROSENTHAL LAB BLOOD ORDERABL ES Final Result [facility] Department [place] [address] * US Guided Aspiration Abscess Hematoma Cyst [...] signed by: Hoang Padron M.D. Nate ROSENTHAL [facility] US PROCEDURES Final Result * Cytology (12/10/2024 3:07 PM CDT) Fluid (Fluid, NOS) 3:07 PM CDT Comment:Lt Cervical Abscess Aspiration H/o left sialoadenitis and a rim-enhancing abscess in the left neck Narrative PATHOLOGY BJ - 12/14/2024 3:15 PM CDT EPIC results best viewed via link to PDF [facility] [place] [address] Note to Patients: This report may contain [...] Gender: M : 1985 (Age: 39) Address: [address] [place], [place] [id number] Hospital #: [id number] Taken:12/10/2024 Received:12/11/2024 Reported: 12/14/2024 Patient Type: [facility] Inpatient Service: Radiology Location: [place] [address] Physician(s): Nitesh Christie PA FINAL DIAGNOSIS A. [...] Surgical Pathology and Flow Cytometry Departments at [facility] as part of an ongoing quality assistant program and in compliance with federally mandated [...] Surgical Pathology and Flow Cytometry Departments of [facility]. It has not been cleared or approved by the U. S. Food and Drug Administration. Nate ROSENTHAL LAB CYTOLOGY ORDER JOEY Final Result PATHOLOGY [facility] 3rd Floor [place], [place] [phone] * Mycology (fungal) culture and stain Abscess Neck (12/10/2024 2:00 PM CDT) Direct Specimen Exam Stain: No Fungal elements seen. Report Final Report: No growth of fungus [facility] Abscess (Neck) 12/10/2024 2: 00 PM CDT 12/10/2024 6:21 PM CDT Narrative [facility] - 01/07/2025 8:18 AM CDT Specimen received in a sterile container. Testing performed by [facility] Microbiology Laboratory ([phone]). Nate ROSENTHAL LAB MICROBIOLOGY - GENERAL ORDERABLES Final Result Performing Organization Address City/[facility]/ZIP Co de Phone Number [facility] Department [place] [address] * Aerobic and anaerobic culture and gram stain Abscess Neck (12/10/2024 2:00 PM CDT) Direct Specimen Exam Stain: Abundant polymorphonuclear leukocytes seen. No organisms seen. Report Final Report: No growth [facility] Abscess (Neck) 12/10/2024 2: 00 PM CDT 12/10/2024 6:21 PM CDT Narrative [facility] CHEN - 12/14/2024 11:47 AM CDT Specimen received in a sterile container. Testing performed by [facility] Microbiology Laboratory ([phone]) Specimens submitted from normally sterile body sites [...] GENERAL ORDERABLES Final Result Performing Organization Address City/State/[facility] Co de Phone Number [facility] Department [place] [address] * eGFR (12/09/2024 9:05 PM CDT) eGFR [...] LAB BLOOD ORDERABL ES Final Result [facility] Department [place] [address] * (ABNORMAL) Differential, auto (12/09/2024 9:05 PM [...] CERNER BJ Neutrophil pct 69.9 % [facility] Comment: Interpretive Data Percent cell count reference ranges are not reported, since discordance with absolute values may lead to misinterpretation of CBC data. Current Interpretive Data was last revised on 2017. Imm gran pct 0.3 % [facility] Comment: Interpretive Data Percent cell count reference ranges are not reported, since discordance with absolute values may lead to misinterpretation of CBC data. Current Interpretive Data was last revised on 2017. Lymphocyte pct 19.6 % [facility] Comment: Interpretive Data Percent cell count reference ranges are not reported, since discordance with absolute values may lead to misinterpretation of CBC data. Current Interpretive Data was last revised on 2017. Monocyte pct 8.6 % [facility] Comment: Interpretive Data Percent cell count reference ranges are not reported, since discordance with absolute values may lead to misinterpretation of CBC data. Current Interpretive Data was last revised on 2017. Eosinophil pct 0.9 % [facility] Comment: Interpretive Data Percent cell count reference ranges are not reported, since discordance with absolute values may lead to misinterpretation of CBC data. Current Interpretive Data was last revised on 2017. Basophil pct 0.7 % [facility] Comment: Interpretive Data Percent cell count reference ranges are not reported, since discordance with absolute values may lead to misinterpretation of CBC data. Current Interpretive Data was last revised on 2017. Blood 12/09/2024 9:05 PM CDT 12/09/2024 11:08 PM CDT Nate ROSENTHAL LAB BLOOD ORDERABL ES Final Result Performing Organization Address [facility] Co de Phone Number [facility] of [employer] [place] [address] * (ABNORMAL) CBC with auto differential (12/09/2024 9:05 PM CDT) Pathologist [facility] WBC 12.90(H) 3.80 - 9.90 K/cumm Hgb 13.2 13.0 - 17.5 g/dL [facility] Hct 38.7(L) 38.9 - 50.3 % [facility] Plt 263 150 - 400 K/cumm [facility] MPV 10.4 9.1 - 12.3 fL [facility] RBC 4.23(L) 4.30 - 5.80 M/cumm [facility] MCV 91.5 81.3 - 96.4 fL [facility] MCH 31.2 27.1 - 33.3 pg [facility] MCHC 34.1 32.3 - 35.7 g/dL [facility] RDW CV 13.2 11.1 - 14.9 % [facility] RDW SD 44.5 35.7 - 48.1 fL [facility] NRBC abs 0.00 0.00 - 0.01 K/cumm [facility] Blood 12/09/2024 9:05 PM CDT 12/09/2024 11:08 PM CDT Nate ROSENTHAL LAB BLOOD ORDERABL ES Final Result Performing Organization Address [facility] Co de Phone Number [facility] [place] [address] * Basic metabolic panel (12/09/2024 9:05 PM CDT) Sodium 139 135 - 145 mmol/L Potassium, pl 4.1 3.3 - 4.9 mmol/L [facility] Chloride 102 97 - 110 mmol/L [facility] CO2 29 22 - 32 mmol/L [facility] Anion gap 8 2 - 15 mmol/L [facility] BUN 19 6 - 25 mg/dL [facility] Creatinine 0.88 0.80 - 1.30 mg/dL [facility] Glucose 80 70 - 199 mg/dL [facility] Comment: Interpretive Data Fasting glucose >/= [...] Calcium 9.1 8.5 - 10.3 mg/dL [facility] Blood 12/09/2024 9:05 PM CDT 12/09/2024 11:08 PM CDT us Nate ROSENTHAL LAB BLOOD ORDERABL ES Final Result [facility] Department [place] [address] * US Head Neck Soft Tissue (12/09/2024 [...] LAB BLOOD ORDERABL ES Final Result [facility] Department [place] [address] * (ABNORMAL) Protime-INR (12/09/2024 4:09 AM CDT) PT 14.3(H) 9.7 - 13.0 sec INR 1.32(H) 0.90 - 1.20 [facility] Comment: Interpretive data Oral anticoagulant therapeutic ranges: Venous thromboembolism prophylaxis or treatment: 2.0-3.0 CARDIOLOGY Standard range: 2.0-3.0 High-intensity range: 2.5-3.5 Refer to indication-specific guidelines for appropriate target ranges for prosthetic heart valve replacement. Current interpretive data was last revised on 2019. Blood 12/09/2024 4:09 AM CDT 12/09/2024 5:40 AM CDT Nate ROSENTHAL LAB BLOOD ORDERABL ES Final Result Performing Organization Address [facility] Co de Phone Number [facility] Department of [employer] [place] [address] * (ABNORMAL) CBC without differential (12/09/2024 4:09 AM CDT) WBC 13.58(H) 3.80 - 9.90 K/cumm Hgb 12.3(L) 13.0 - 17.5 g/dL [facility] Hct 35.7(L) 38.9 - 50.3 % [facility] Plt 262 150 - 400 K/cumm [facility] MPV 10.8 9.1 - 12.3 fL [facility] RBC 3.96(L) 4.30 - 5.80 M/cumm [facility] MCV 90.2 81.3 - 96.4 fL [facility] MCH 31.1 27.1 - 33.3 pg [facility] MCHC 34.5 32.3 - 35.7 g/dL [facility] RDW CV 13.2 11.1 - 14.9 % [facility] RDW SD 44.1 35.7 - 48.1 fL [facility] NRBC abs 0.00 0.00 - 0.01 K/cumm [facility] Blood 12/09/2024 4:09 AM CDT 12/09/2024 5:23 AM CDT Nate ROSENTHAL LAB BLOOD ORDERABL ES Final Result Performing Organization Address [facility]/ZIP Co de Phone Number [facility] Department of [employer] [place] [address] * Basic metabolic panel (12/09/2024 4:09 AM CDT) Sodium 138 135 - 145 mmol/L Potassium, pl 3.9 3.3 - 4.9 mmol/L [facility] Chloride 102 97 - 110 mmol/L [facility] CO2 26 22 - 32 mmol/L [facility] Anion gap 10 2 - 15 mmol/L [facility] BUN 17 6 - 25 mg/dL [facility] Creatinine 0.83 0.80 - 1.30 mg/dL [facility] Glucose 96 70 - 199 mg/dL [facility] Comment: Interpretive Data Fasting glucose >/= [...] Calcium 9.1 8.5 - 10.3 mg/dL [facility] Blood 12/09/2024 4:09 AM CDT 12/09/2024 5:23 AM CDT us Nate ROSENTHAL LAB BLOOD ORDERABL ES Final Result [facility] Department [place] [address] * GA CRITICAL CARE ILL/INJURED PATIENT INIT 30-74 MIN [...] Streptococcus anginosus No further workup. (.) [facility] Organism STREPTOCOCCUS ANGINOSUS [facility] Organism MIXED UPPER RESPIRATORY TRACT MICROORGANISMS. [facility] Abscess (Neck) 12/08/2024 6: 00 AM CDT 12/08/2024 6:26 AM CDT Narrative [facility] - 12/14/2024 1:53 PM CDT Specimen received on an ESwab. Testing performed by [facility] Microbiology Laboratory ([phone]) Specimens submitted from normally sterile body sites [...] GENERAL ORDERABLES Edited Result - Final [facility] Department [place] [address] * Sepsis Lactate w/ Reflex (12/07/2024 9:43 PM CDT) Sepsis Lactate 1.1 0.7 - 2.0 mmol/L Blood 12/07/2024 9:43 PM CDT 12/07/2024 9:45 PM CDT us Dick ROSENTHAL LAB BLOOD ORDERABLES Final R esult Performing Organization Address City/[facility]/ZIP Co de Phone Number [facility] [address] [place] [address] * eGFR (12/07/2024 9:43 PM CDT) eGFR [...] LAB BLOOD ORDERABLE S Final Result [facility] [address] [employer] [place] [address] * (ABNORMAL) Differential, auto (12/07/2024 9:43 PM CDT) Pathologist [facility] Neutrophil abs 9.48(H) 1.50 - 6.50 K/cumm Imm gran abs 0.04 0.00 - 0.10 K/cumm [facility] Lymphocyte abs 2.06 0.80 - 3.30 K/cumm [facility] Monocyte abs 0.97(H) 0.20 - 0.80 K/cumm [facility] Eosinophil abs 0.14 0.00 - 0.50 K/cumm [facility] Basophil abs 0.07 0.00 - 0.10 K/cumm [facility] Neutrophil pct 74.4 % [facility] Comment: Interpretive Data Percent cell count reference ranges are not reported, since discordance with absolute values may lead to misinterpretation of CBC data. Current Interpretive Data was last revised on 2017. Imm gran pct 0.3 % [facility] Comment: Interpretive Data Percent cell count reference ranges are not reported, since discordance with absolute values may lead to misinterpretation of CBC data. Current Interpretive Data was last revised on 2017. Lymphocyte pct 16.1 % [facility] Comment: Interpretive Data Percent cell count reference ranges are not reported, since discordance with absolute values may lead to misinterpretation of CBC data. Current Interpretive Data was last revised on 2017. Monocyte pct 7.6 % [facility] Comment: Interpretive Data Percent cell count reference ranges are not reported, since discordance with absolute values may lead to misinterpretation of CBC data. Current Interpretive Data was last revised on 2017. Eosinophil pct 1.1 % [facility] Comment: Interpretive Data Percent cell count reference ranges are not reported, since discordance with absolute values may lead to misinterpretation of CBC data. Current Interpretive Data was last revised on 2017. Basophil pct 0.5 % [facility] Comment: Interpretive Data Percent cell count reference ranges are not reported, since discordance with absolute values may lead to misinterpretation of CBC data. Current Interpretive Data was last revised on 2017. Blood 12/07/2024 9:43 PM CDT 12/07/2024 9:46 PM CDT Evan Reynolds MD LAB BLOOD ORDERABLE S Final Result Performing Organization Address [facility] Co de Phone Number [facility] [address] [address] * (ABNORMAL) CBC with auto differential (12/07/2024 9:43 PM CDT) [facility] WBC 12.76(H) 3.80 - 9.90 K/cumm Hgb 14.3 13.0 - 17.5 g/dL [facility] Hct 42.2 38.9 - 50.3 % [facility] Plt 243 150 - 400 K/cumm [facility] MPV 9.7 9.1 - 12.3 fL [facility] RBC 4.65 4.30 - 5.80 M/cumm [facility] MCV 90.8 81.3 - 96.4 fL [facility] MCH 30.8 27.1 - 33.3 pg [facility] MCHC 33.9 32.3 - 35.7 g/dL [facility] RDW CV 13.3 11.1 - 14.9 % [facility] RDW SD 44.6 35.7 - 48.1 fL [facility] NRBC abs 0.00 0.00 - 0.01 K/cumm [facility] Blood 12/07/2024 9:43 PM CDT 12/07/2024 9:46 PM CDT Evan Reynolds MD LAB BLOOD ORDERABLE S Final Result Performing Organization Address [facility] Co de Phone Number [facility] [address] [place] [address] * Comprehensive metabolic panel (12/07/2024 9:43 PM CDT) [facility] Sodium 135 135 - 145 mmol/L Potassium, pl 3.8 3.3 - 4.9 mmol/L [facility] Chloride 99 97 - 110 mmol/L [facility] CO2 24 22 - 32 mmol/L [facility] Anion gap 12 2 - 15 mmol/L [facility] BUN 16 6 - 25 mg/dL [facility] Creatinine 0.83 0.80 - 1.30 mg/dL [facility] Glucose 118 70 - 199 mg/dL [facility] Comment: Interpretive Data Fasting glucose >/= [...] Calcium 9.5 8.5 - 10.3 mg/dL [facility] Bilirubin, total 0.7 0.1 - 1.2 mg/dL [facility] Protein, pl 7.8 6.5 - 8.5 g/dL [facility] Albumin 4.2 3.5 - 5.0 g/dL [facility] Alk phos 58 40 - 130 Units/L [facility] ALT 17 7 - 55 Units/L [facility] AST 20 10 - 50 Units/L [facility] Blood 12/07/2024 9:43 PM CDT 12/07/2024 9:46 PM CDT Evan Reynolds MD LAB BLOOD ORDERABLE S Final Result [facility] [address] [facility] Department of Laboratories [place], [place] [id number] * CT Neck Soft Tissue W Contrast [...] Pt states he has been seen at [facility] and was prescribed abx. I then saw [...] Den Barney M.D. BS T: Report ID: [id number] Reading Location: [id number] Procedure Note Den Barney MD - 12/07/2024 EXAM DESCRIPTION: CT SOFT TISSUE NECK W CONTRAST REASON FOR STUDY: left sided neck swelling, possible abscess Pt to ED I have a salivary gland that's been clogged for 4 days Ptstates he has been seen at [facility] and was prescribed abx. I then saw [...] Den Barney M.D. BS T: Report ID: [id number] Reading Location: [place] [address] PROCEDURES Final Re [...] was last reviewed 2021. Testing performed by: [address] [address] Blood 12/06/2024 8:14 AM CDT 12/06/2024 8:18 AM CDT us Jose Caal MD LAB BLOOD ORDERABLES Isa l Result [facility] [address] [facility] Department [place] [address] * (ABNORMAL) Differential, auto (12/06/2024 8:14 AM CDT) Pathologist [facility] Neutrophil abs 11.05(H) 1.50 - 6.50 K/cumm Comment:Testing performed by : [address] [address] Imm gran abs 0.11(H) 0.00 - 0.10 K/cumm [facility] Comment:Testing performed by : [address] [address] Lymphocyte abs 2.65 0.80 - 3.30 K/cumm [facility] Comment:Testing performed by : [address] [address] Monocyte abs 1.01(H) 0.20 - 0.80 K/cumm [facility] Comment:Testing performed by : [address] [address] Eosinophil abs 0.02 0.00 - 0.50 K/cumm [facility] Comment:Testing performed by : [address] [address] Basophil abs 0.08 0.00 - 0.10 K/cumm [facility] Comment:Testing performed by : [address] [address] Neutrophil pct 74.1 % [facility] Comment: Interpretive Data Percent cell count reference ranges are not reported, since discordance with absolute values may lead to misinterpretation of CBC data. Current Interpretive Data was last revised on 2017. Testing performed by: [address] [address] Imm gran pct 0.7 % [facility] Comment: Interpretive Data Percent cell count reference ranges are not reported, since discordance with absolute values may lead to misinterpretation of CBC data. Current Interpretive Data was last revised on 2017. Testing performed by: [address] [address] Lymphocyte pct 17.8 % [facility] Comment: Interpretive Data Percent cell count reference ranges are not reported, since discordance with absolute values may lead to misinterpretation of CBC data. Current Interpretive Data was last revised on 2017. Testing performed by: [address] [address] Monocyte pct 6.8 % [facility] Comment: Interpretive Data Percent cell count reference ranges are not reported, since discordance with absolute values may lead to misinterpretation of CBC data. Current Interpretive Data was last revised on 2017. Testing performed by: [address] [address] Eosinophil pct 0.1 % [facility] Comment: Interpretive Data Percent cell count reference ranges are not reported, since discordance with absolute values may lead to misinterpretation of CBC data. Current Interpretive Data was last revised on 2017. Testing performed by: [address] [address] Basophil pct 0.5 % [facility] Comment: Interpretive Data Percent cell count reference ranges are not reported, since discordance with absolute values may lead to misinterpretation of CBC data. Current Interpretive Data was last revised on 2017. Testing performed by: [address] [address] Blood 12/06/2024 8:14 AM CDT 12/06/2024 8:19 AM CDT us Jose Caal MD LAB BLOOD ORDERABLES Isa ayala Result [facility] [facility] Department [place] [address] * (ABNORMAL) CBC with auto differential (12/06/2024 8:14 AM CDT) WBC 14.92(H) 3.80 - 9.90 K/cumm Comment:Testing performed by : [address] [address] Hgb 15.1 13.0 - 17.5 g/dL [facility] Comment:Testing performed by : [address] [address] Hct 44.7 38.9 - 50.3 % [facility] Comment:Testing performed by : [address] [address] Plt 264 150 - 400 K/cumm [facility] Comment:Testing performed by : [address] [address] MPV 9.6 9.1 - 12.3 fL [facility] Comment:Testing performed by : [address] [address] RBC 4.89 4.30 - 5.80 M/cumm [facility] Comment:Testing performed by : [address] [address] MCV 91.4 81.3 - 96.4 fL [facility] Comment:Testing performed by : [address] [address] MCH 30.9 27.1 - 33.3 pg [facility] Comment:Testing performed by : [address] [address] MCHC 33.8 32.3 - 35.7 g/dL [facility] Comment:Testing performed by : [address] [address] RDW CV 13.5 11.1 - 14.9 % [facility] Comment:Testing performed by : [address] [address] RDW SD 45.7 35.7 - 48.1 fL [facility] Comment:Testing performed by : [address] [address] NRBC abs 0.00 0.00 - 0.01 K/cumm [facility] Comment:Testing performed by : [address] [address] Blood 12/06/2024 8:14 AM CDT 12/06/2024 8:19 AM CDT us Jose Caal MD LAB BLOOD ORDERABLES Isa l Result [facility] [address] [facility] Department of Laboratories [place], [place] [id number] * Comprehensive metabolic panel (12/06/2024 8:14 AM CDT) Sodium 136 135 - 145 mmol/L Comment:Testing performed by : [address] [address] Potassium, pl 4.2 3.3 - 4.9 mmol/L [facility] Comment: Hemolyzed; Potassium value may be falsely elevated by as much as 1.0 mmol/L. Suggest redraw and reanalysis. Testing performed by: [address] [address] Chloride 101 97 - 110 mmol/L [facility] Comment:Testing performed by : [address] [address] CO2 23 22 - 32 mmol/L [facility] Comment:Testing performed by : [address] [address] Anion gap 12 2 - 15 mmol/L [facility] Comment:Testing performed by : [address] [address] BUN 11 6 - 25 mg/dL [facility] Comment:Testing performed by : [address] [address] Creatinine 0.91 0.80 - 1.30 mg/dL [facility] Comment:Testing performed by : [address] [address] Glucose 98 70 - 199 mg/dL [facility] Comment: Interpretive Data Fasting glucose >/= 126 [...] was last revised 2022. Testing performed by: [address] [address] Calcium 10.1 8.5 - 10.3 mg/dL [facility] Comment:Testing performed by : [address] [address] Bilirubin, total 0.8 0.1 - 1.2 mg/dL [facility] Comment:Testing performed by : [address] [address] Protein, pl 8.5 6.5 - 8.5 g/dL [facility] Comment:Testing performed by : [address] [address] Albumin 4.8 3.5 - 5.0 g/dL [facility] Comment:Testing performed by : [address] [address] Alk phos 67 40 - 130 Units/L [facility] Comment:Testing performed by : [address] [address] ALT 26 7 - 55 Units/L [facility] Comment:Testing performed by : [address] [address] AST 31 10 - 50 Units/L [facility] Comment: Hemolyzed; result may be falsely elevated Testing performed by: [address] [address] Blood 12/06/2024 8:14 AM CDT 12/06/2024 8:18 AM CDT us Jose Caal MD LAB BLOOD ORDERABLES Isa l Result [facility] [address] [facility] Department [place] [address] from Last 3 Months Advance Directives For more information, please contact: [phone] * Full Code (Latest Code Status on File) Date Activated Date Inactivated Comments 01/07/2025 9:12 AM 01/10/2025 5:24 PM * Full Code Date Activated Date Inactivated Comments 12/08/2024 4:30 AM 12/11/2024 4:25 PM Care Teams Hat Checker Relationship Specialty Start Date End Date No, Physician PCP - General 05/13/23
--- OUTSIDE RECORDS SUMMARY | 2025-01-31 07:44 | XMS_ITS | Encounter Summary ---
Author Organization [facility] Healthcare Address [address] [place] [address] Care Team Providers Care Group Art Supervisor Name Role Phone No, Physician Primary Care Provider [phone] Encounter Details Date Type Department Care Team (Latest Contact Info) Description 01/30/2025 Telephone Otolaryngology Mando Mccullough MD [address] [id number] Social History Tobacco Use Types Packs/Day Years Used Date Smoking Tobacco: Every Day Cigarettes 0.8 22.5 Started: 2002 Passive Smoke Exposure: Past Smokeless Tobacco: Never [facility] Utilities Answer Date Recorded In the past 12 months has [employer], gas, oil, or water company threatened [...] often do you attend chur ch or jew services? Never 01/08/2025 Do you belong to any clubs o r organizations such as judaism groups, unions, fraternal or athletic groups, or [...] in the past 12 m [facility], were you homeless or living in a chcf (including now)? No 01/08/2025 Personal Safety Answer [...] on filedocumented in this encounter Care Teams Group Art Supervisor Relationship Specialty Start Date End Date No, Physician PCP - General 05/13/23 documented as of this encounter
--- OUTSIDE RECORDS SUMMARY | 2025-01-31 07:44 | XMS_ITS | Clinical Summary ---
Author Organization [facility] Address [address] [place] [id number] Care Team Providers Care Flight Superintendent Name Role Phone None, Provider MD Primary [...] age to complete this topic Care Teams Flight Superintendent Relationship Specialty Start Date End Date None, Provider, MD PCP - General UNKNOWN PHYSICIAN SPECIALTY 05/06/23
--- OUTSIDE RECORDS SUMMARY | 2025-01-31 07:44 | XMS_ITS | Clinical Summary ---
Author Organization [facility] [address] [place] [address] Care Team Providers Care Coach Driver Name Role Phone No, Physician Primary Care Provider [phone] Allergies Active Allergy Reactions Criticality Noted Date [...] - 01/26/2025 11:59 PM CDT Hospital Encounter [address] [address] Abscess; Abscess of skin of neck Discharge Disposition: Discharge to home or self care 01/26/2025 9:00 AM CDT [facility] - [facility] E[facility] [address] [facility] [address] [facility] 11th [place] [address] [place] [address] Stacie Can MD Submandibular sialoadenitis (Primary Dx); Abscess of skin of neck 01/26/2025 Orders Only [facility] ([facility]) - [facility] ENT [address] [facility] 11th [place] [address] [place] [address] Stacie Can MD Abscess of skin of neck (Primary Dx); Abscess 01/15/2025 9:31 AM CDT Anesthesia Event [facility] Operating Room [facility] ([facility]) [address] [place] [address] Bharat Jamsine MD Heuvelman, Katherine Marie, NP 01/15/2025 9:05 AM CDT - 01/15/2025 12:00 PM CDT Surgery [facility] Operating Room [facility] ([facility]) [address] [place] [address] Stacie Can MD EXCISION SUBMANDIBULAR GLAND 01/15/2025 6:33 AM CDT - 01/15/2025 3:57 PM CDT Hospital Encounter [facility] Operating Room [facility] ([facility]) [address] [place] [address] Stacie Can MD Submandibular sialolithiasis; Submandibular sialoadenitis; Abscess of submandibular gland Discharge Disposition: Discharge to home or self care 01/14/2025 Telephone [facility] ([facility]) - [facility] ENT [address] [facility] [address] [facility] 11th [place] [address] [place] [address] Michelle Rolle CMA 01/11/2025 Telephone [facility] ([facility]) - [facility] ENT [address] [facility] 11th [place] [address] [place] [address] Michelle Rolle, KARELY 01/07/2025 3:30 AM CDT - 01/10/2025 1:24 PM CDT Hospital Encounter [address] [address] Bessy Shore MD Van Buren, MD Shruthi Roper Sean C., MD Petrovic Elbaz, Mirjana, MD Sialadenitis (Primary Dx); Neck abscess Discharge Disposition: Discharge to home or self care 01/05/2025 12:00 PM CDT Telemedicine [facility] [address] [facility] [address] [place] [address] Stacie Can MD Submandibular sialoadenitis (Primary Dx); Sialolithiasis 01/05/2025 Telephone [facility] ([facility]) - [facility] ENT [address] [facility] [address]th [place] [address] [place] [address] Michelle Rolle, KARELY 01/05/2025 Telephone [facility] ([facility]) - [facility] ENT [address] [facility] [address]th [place] [address] [place] [address] Michelle Rolle, KARELY 12/16/2024 Telephone [facility]) [facility] ENT [address] [facility] 11th [place] [address] [place] [address] Michelle Rolle, KARELY 12/16/2024 Telephone [facility] Otolaryngology [facility] [place] [address] Mikayla Abebe MS 12/08/2024 1:28 AM CDT - 12/11/2024 12:19 PM CDT Hospital Encounter [address] [address] Keyur Phillip MD Baum, Erin Shanel, MD Laya, Sarakshi, MD Abscess (Primary Dx) Discharge Disposition: Discharge to home or self care 12/07/2024 8:57 PM CDT - 12/07/2024 10:41 PM CDT Emergency [facility] [address] [place] [address] Sialoadenitis (Primary Dx); Submandibular abscess Discharge Disposition: Discharge to a short term hospital for IP 12/07/2024 Telephone [facility] [address] [facility] Medical Office Building [address] [place] [address] Michelle Rolle CMA 12/06/2024 8:19 AM CDT - 12/06/2024 9:40 AM CDT Emergency [facility] Emergency Department [address] [place] [address] Jose Caal MD Submandibular sialoadenitis (Primary Dx) [...] uit: Not Asked; Counseling Given: Not Answered [facility] Utilities Answer Date Recorded In the past 12 months has [employer], or water [employer] threatened to shut off services in your [...] week 01/08/2025 How often do you attend [facility] or caodaism services? Never 01/08/2025 Do you belong to any clubs o r organizations such as pentecostalism groups, unions, fraternal or athletic groups, or [...] any time in the past 12 [facility], were you homeless or living in a senior care (including now)? No 01/08/2025 Personal Safety Answer [...] sialolithiasis Submandibular sialoadenitis Abscess of submandibular gland [place] AN PROCEDURE PLACEHOLDER Routine 01/15/2025 10:00 AM CDT [place] AN ELECTIVE ENDOTRACHEAL AIRWAY Routine 01/15/2025 10:00 [...] CDT PROTIME-INR Routine 12/09/2024 4:09 AM CDT [place] CRITICAL CARE ILL/INJURED PATIENT INIT 30-74 MIN [...] organisms seen. Report Final Report: No growth [facility] Abscess (Neck, left) 01/26/2025 3:22 PM CDT 01/26/2025 3:55 PM CDT Narrative [facility] - 01/29/2025 12:18 PM CDT Neck abscess Testing performed by [facility] Microbiology Laboratory ([phone]) Specimens submitted from normally sterile body sites [...] - GEN ERAL ORDERABLES Final Result [facility] Department [place] [address] * Surgical pathology (01/15/2025 11:27 AM CDT) Tissue (Sublingual/Subma ndibular Gland) 01/15/2025 11:27 AM CDT Narrative PATHOLOGY [facility] - 01/20/2025 12:11 PM CDT EPIC results best viewed via link to PDF [facility] [place] [address] Note to Patients: This report may contain [...] Gender: M : 1985 (Age: 39) Address: [address] [place] [address] Hospital #: [id number] Taken:01/15/2025 Received:01/15/2025 Reported: 01/20/2025 Patient Type: [facility] Service: Surgery Location: Physician(s): Stacie Can [...] Surgical Pathology and Flow Cytometry Departments at [facility] as part of an ongoing quality assistant [...] Surgical Pathology and Flow Cytometry Departments of [facility]. It has not been cleared or approved by the U. S. Food and Drug Administration. IMAGES AND SCANNED DOCUMENTS, IF INCLUDED, ONLY VIEWABLE IN PDF VERSION OF REPORT us Stacie Can MD LAB PATHOLOGY ORDERABL ES Final Result PATHOLOGY [facility] 3rd Floor [place], [place] [phone] * [place] AN ELECTIVE ENDOTRACHEAL AIRWAY, [place] AN PROCEDURE PLACEHOLDER (01/15/2025 10:00 AM CDT) [...] MD LAB BLOOD ORDERABLES F inal Result [facility] One [facility] [place] [address] * (ABNORMAL) Differential, auto (01/08/2025 9:20 PM CDT) Neutrophil abs 4.64 1.50 - 6.50 K/cumm Imm gran abs 0.03 0.00 - 0.10 K/cumm [facility] Lymphocyte abs 2.28 0.80 - 3.30 K/cumm [facility] Monocyte abs 0.62 0.20 - 0.80 K/cumm [facility] Eosinophil abs 0.56(H) 0.00 - 0.50 K/cumm [facility] Basophil abs 0.11(H) 0.00 - 0.10 K/cumm [facility] Neutrophil pct 56.3 % [facility] Comment: Interpretive Data Percent cell count reference ranges are not reported, since discordance with absolute values may lead to misinterpretation of CBC data. Current Interpretive Data was last revised on 2017. Imm gran pct 0.4 % [facility] Comment: Interpretive Data Percent cell count reference ranges are not reported, since discordance with absolute values may lead to misinterpretation of CBC data. Current Interpretive Data was last revised on 2017. Lymphocyte pct 27.7 % [facility] Comment: Interpretive Data Percent cell count reference ranges are not reported, since discordance with absolute values may lead to misinterpretation of CBC data. Current Interpretive Data was last revised on 2017. Monocyte pct 7.5 % [facility] Comment: Interpretive Data Percent cell count reference ranges are not reported, since discordance with absolute values may lead to misinterpretation of CBC data. Current Interpretive Data was last revised on 2017. Eosinophil pct 6.8 % [facility] Comment: Interpretive Data Percent cell count reference ranges are not reported, since discordance with absolute values may lead to misinterpretation of CBC data. Current Interpretive Data was last revised on 2017. Basophil pct 1.3 % [facility] Comment: Interpretive Data Percent cell count reference ranges are not reported, since discordance with absolute values may lead to misinterpretation of CBC data. Current Interpretive Data was last revised on 2017. Blood 01/08/2025 9:20 PM CDT 01/08/2025 10:01 PM CDT us Cyn Levy MD LAB BLOOD ORDERABLES F inal Result [facility] [address] [facility] Department [place] [address] * CBC with auto differential (01/08/2025 9:20 PM CDT) WBC 8.24 3.80 - 9.90 K/cumm Hgb 13.4 13.0 - 17.5 g/dL [facility] Hct 39.6 38.9 - 50.3 % [facility] Plt 242 150 - 400 K/cumm [facility] Comment:No clot detected in sample. MPV 10.7 9.1 - 12.3 fL [facility] RBC 4.35 4.30 - 5.80 M/cumm [facility] MCV 91.0 81.3 - 96.4 fL [facility] MCH 30.8 27.1 - 33.3 pg [facility] MCHC 33.8 32.3 - 35.7 g/dL [facility] RDW CV 13.0 11.1 - 14.9 % [facility] RDW SD 43.5 35.7 - 48.1 fL [facility] NRBC abs 0.00 0.00 - 0.01 K/cumm [facility] Blood 01/08/2025 9:20 PM CDT 01/08/2025 10:01 PM CDT Cyn Levy MD LAB BLOOD ORDERABLES F inal Result Performing Organization Address City/[facility]/ZIP Co de Phone Number [facility] One [facility] Department [place] [address] * Basic metabolic panel (01/08/2025 9:20 PM CDT) Sodium 140 135 - 145 mmol/L Potassium, pl 4.2 3.3 - 4.9 mmol/L [facility] Comment:Hemolyzed; Potassium value may be falsely elevated by as much as 0.6-1.0 mmol/L. Suggest redraw and reanalysis. Chloride 103 97 - 110 mmol/L [facility] CO2 29 22 - 32 mmol/L [facility] Anion gap 8 2 - 15 mmol/L [facility] BUN 15 6 - 25 mg/dL [facility] Creatinine 0.83 0.80 - 1.30 mg/dL [facility] Glucose 88 70 - 199 mg/dL [facility] Comment: Interpretive Data Fasting glucose >/= [...] 2022. Calcium 9.2 8.5 - 10.3 mg/dL [facility] Blood 01/08/2025 9:20 PM CDT 01/08/2025 9:59 PM CDT Cyn Levy MD LAB BLOOD ORDERABLES F inal Result [facility] One [facility] Department [place] [address] * (ABNORMAL) Aerobic and anaerobic culture and gram stain Abscess Neck (01/08/2025 2:27 PM CDT) Direct Specimen Exam Stain: Moderate polymorphonuclear leukocytes seen. No organisms seen. Report Final Report: Few Coagulase negative Staphylococcus species No further workup. (.) [facility] Organism COAGULASE NEGATIVE STAPHYLOCOCCUS SPECIES [facility] Abscess (Neck) 01/08/2025 2: 27 PM CDT 01/08/2025 3:02 PM CDT Narrative [facility] - 01/11/2025 1:58 PM CDT Specimen received on an ESwab. Testing performed by [facility] Microbiology Laboratory ([phone]) Specimens submitted from normally sterile body sites [...] ERAL ORDERABLES Final Result Performing Organization Address [facility] Co de Phone Number [facility] Department [place] [address] * eGFR (01/08/2025 8:59 AM CDT) eGFR [...] MD LAB BLOOD ORDERABLES F inal Result [facility] [place] [address] * Basic metabolic panel (01/08/2025 8:59 AM CDT) [facility] Signature Sodium 139 135 - 145 mmol/L Potassium, pl 4.0 3.3 - 4.9 mmol/L [facility] Chloride 102 97 - 110 mmol/L [facility] CO2 29 22 - 32 mmol/L [facility] Anion gap 8 2 - 15 mmol/L [facility] BUN 11 6 - 25 mg/dL [facility] Creatinine 0.80 0.80 - 1.30 mg/dL [facility] Glucose 84 70 - 199 mg/dL [facility] Comment: Interpretive Data Fasting glucose >/= [...] 2022. Calcium 9.9 8.5 - 10.3 mg/dL [facility] Blood 01/08/2025 8:59 AM CDT 01/08/2025 9:50 AM CDT us Cyn Levy MD LAB BLOOD ORDERABLES F inal Result Performing Organization Address [facility] Co de Phone Number [facility] Department [place] [address] * eGFR (01/07/2025 6:47 AM CDT) eGFR [...] ORDERABLES Final Resul t Performing Organization Address [facility]/ZIP Co de Phone Number [facility] Department [place] [address] * Differential, auto (01/07/2025 6:47 AM CDT) Neutrophil abs 5.34 1.50 - 6.50 K/cumm Imm gran abs 0.01 0.00 - 0.10 K/cumm [facility] Lymphocyte abs 1.58 0.80 - 3.30 K/cumm [facility] Monocyte abs 0.44 0.20 - 0.80 K/cumm [facility] Eosinophil abs 0.45 0.00 - 0.50 K/cumm [facility] Basophil abs 0.09 0.00 - 0.10 K/cumm [facility] Neutrophil pct 67.5 % [facility] Comment: Interpretive Data Percent cell count reference ranges are not reported, since discordance with absolute values may lead to misinterpretation of CBC data. Current Interpretive Data was last revised on 2017. Imm gran pct 0.1 % [facility] Comment: Interpretive Data Percent cell count reference ranges are not reported, since discordance with absolute values may lead to misinterpretation of CBC data. Current Interpretive Data was last revised on 2017. Lymphocyte pct 20.0 % [facility] Comment: Interpretive Data Percent cell count reference ranges are not reported, since discordance with absolute values may lead to misinterpretation of CBC data. Current Interpretive Data was last revised on 2017. Monocyte pct 5.6 % [facility] Comment: Interpretive Data Percent cell count reference ranges are not reported, since discordance with absolute values may lead to misinterpretation of CBC data. Current Interpretive Data was last revised on 2017. Eosinophil pct 5.7 % [facility] Comment: Interpretive Data Percent cell count reference ranges are not reported, since discordance with absolute values may lead to misinterpretation of CBC data. Current Interpretive Data was last revised on 2017. Basophil pct 1.1 % [facility] Comment: Interpretive Data Percent cell count reference ranges are not reported, since discordance with absolute values may lead to misinterpretation of CBC data. Current Interpretive Data was last revised on 2017. Blood 01/07/2025 6:47 AM CDT 01/07/2025 6:52 AM CDT us Fracisco Reyes MD PhD LAB BLOOD ORDERABLES Final Resul t [facility] Department [place] [address] * (ABNORMAL) CBC with auto differential (01/07/2025 6:47 AM CDT) [facility] WBC 7.91 3.80 - 9.90 K/cumm Hgb 13.7 13.0 - 17.5 g/dL [facility] Hct 41.4 38.9 - 50.3 % [facility] Plt 114(L) 150 - 400 K/cumm [facility] MPV 11.2 9.1 - 12.3 fL [facility] RBC 4.52 4.30 - 5.80 M/cumm [facility] MCV 91.6 81.3 - 96.4 fL [facility] MCH 30.3 27.1 - 33.3 pg [facility] MCHC 33.1 32.3 - 35.7 g/dL [facility] RDW CV 13.2 11.1 - 14.9 % [facility] RDW SD 44.7 35.7 - 48.1 fL [facility] NRBC abs 0.00 0.00 - 0.01 K/cumm [facility] Blood 01/07/2025 6:47 AM CDT 01/07/2025 6:52 AM CDT us Fracisco Reyes MD PhD LAB BLOOD ORDERABLES Final Resul t [facility] Department [place] [address] * (ABNORMAL) Comprehensive metabolic panel (01/07/2025 6:47 AM CDT) [facility] Sodium 138 135 - 145 mmol/L Potassium, pl 5.5(H) 3.3 - 4.9 mmol/L [facility] Comment:Hemolyzed; Potassium value may be falsely elevated by as much as 1.1-1.6 mmol/L. Suggest redraw and reanalysis. Chloride 100 97 - 110 mmol/L [facility] CO2 29 22 - 32 mmol/L [facility] Anion gap 9 2 - 15 mmol/L [facility] BUN 13 6 - 25 mg/dL [facility] Creatinine 0.79(L) 0.80 - 1.30 mg/dL [facility] Glucose 89 70 - 199 mg/dL [facility] Comment: Interpretive Data Fasting glucose >/= [...] 2022. Calcium 9.4 8.5 - 10.3 mg/dL [facility] Bilirubin, total 0.5 0.1 - 1.2 mg/dL [facility] Protein, pl 7.9 6.5 - 8.5 g/dL [facility] Albumin 4.1 3.5 - 5.0 g/dL [facility] Alk phos 68 40 - 130 Units/L [facility] Comment:Hemolyzed; result ma y be falsely decreased ALT 23 7 - 55 Units/L [facility] AST 46 10 - 50 Units/L [facility] Comment:Hemolyzed; result ma y be falsely elevated Blood 01/07/2025 6:47 AM CDT 01/07/2025 6:52 AM CDT us Fracisco Reyes MD PhD LAB BLOOD ORDERABLES Final Resul t [facility] [place] [address] * (ABNORMAL) Aerobic and anaerobic culture and gram stain Abscess Neck (01/07/2025 5:43 AM CDT) Direct Specimen Exam Stain: Abundant polymorphonuclear leukocytes seen. No organisms seen. 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 Testing performed by [facility] Microbiology Laboratory ([phone]) Specimens submitted from normally sterile body sites [...] MICROBIOLOGY - GENERAL ORDER JOEY Final Result [facility] [place] [address] * eGFR (12/10/2024 10:39 PM CDT) eGFR [...] [facility] LAB BLOOD ORDERABL ES Final Result [facility] [place] [address] * (ABNORMAL) Differential, auto (12/10/2024 10:39 PM CDT) Neutrophil abs 7.49(H) 1.50 - 6.50 K/cumm Imm gran abs 0.04 0.00 - 0.10 K/cumm [facility] Lymphocyte abs 2.27 0.80 - 3.30 K/cumm [facility] Monocyte abs 0.85(H) 0.20 - 0.80 K/cumm [facility] Eosinophil abs 0.24 0.00 - 0.50 K/cumm [facility] Basophil abs 0.10 0.00 - 0.10 K/cumm [facility] Neutrophil pct 68.1 % [facility] Comment: Interpretive Data Percent cell count reference ranges are not reported, since discordance with absolute values may lead to misinterpretation of CBC data. Current Interpretive Data was last revised on 2017. Imm gran pct 0.4 % [facility] Comment: Interpretive Data Percent cell count reference ranges are not reported, since discordance with absolute values may lead to misinterpretation of CBC data. Current Interpretive Data was last revised on 2017. Lymphocyte pct 20.7 % [facility] Comment: Interpretive Data Percent cell count reference ranges are not reported, since discordance with absolute values may lead to misinterpretation of CBC data. Current Interpretive Data was last revised on 2017. Monocyte pct 7.7 % [facility] Comment: Interpretive Data Percent cell count reference ranges are not reported, since discordance with absolute values may lead to misinterpretation of CBC data. Current Interpretive Data was last revised on 2017. Eosinophil pct 2.2 % [facility] Comment: Interpretive Data Percent cell count reference ranges are not reported, since discordance with absolute values may lead to misinterpretation of CBC data. Current Interpretive Data was last revised on 2017. Basophil pct 0.9 % [facility] Comment: Interpretive Data Percent cell count reference ranges are not reported, since discordance with absolute values may lead to misinterpretation of CBC data. Current Interpretive Data was last revised on 2017. Blood 12/10/2024 10:3 9 PM CDT 12/10/2024 11:44 PM CDT Nate [facility] LAB BLOOD ORDERABL ES Final Result [facility] Department [place] [address] * (ABNORMAL) CBC with auto differential (12/10/2024 10:39 PM CDT) WBC 10.99(H) 3.80 - 9.90 K/cumm Hgb 13.1 13.0 - 17.5 g/dL [facility] Hct 38.6(L) 38.9 - 50.3 % [facility] Plt 244 150 - 400 K/cumm [facility] MPV 10.8 9.1 - 12.3 fL [facility] RBC 4.23(L) 4.30 - 5.80 M/cumm [facility] MCV 91.3 81.3 - 96.4 fL [facility] MCH 31.0 27.1 - 33.3 pg [facility] MCHC 33.9 32.3 - 35.7 g/dL [facility] RDW CV 13.0 11.1 - 14.9 % [facility] RDW SD 43.8 35.7 - 48.1 fL [facility] NRBC abs 0.00 0.00 - 0.01 K/cumm [facility] Blood 12/10/2024 10:3 9 PM CDT 12/10/2024 11:44 PM CDT Nate [facility] LAB BLOOD ORDERABL ES Final Result [facility] [place] [address] * Basic metabolic panel (12/10/2024 10:39 PM CDT) Sodium 141 135 - 145 mmol/L Potassium, pl 4.0 3.3 - 4.9 mmol/L [facility] Chloride 100 97 - 110 mmol/L [facility] CO2 30 22 - 32 mmol/L [facility] Anion gap 11 2 - 15 mmol/L [facility] BUN 17 6 - 25 mg/dL [facility] Creatinine 0.85 0.80 - 1.30 mg/dL [facility] Glucose 108 70 - 199 mg/dL [facility] Comment: Interpretive Data Fasting glucose >/= [...] 2022. Calcium 9.4 8.5 - 10.3 mg/dL [facility] Blood 12/10/2024 10:3 9 PM CDT 12/10/2024 11:44 PM CDT us Nate [facility] LAB BLOOD ORDERABL ES Final Result [facility] [place] [address] * US Guided Aspiration Abscess Hematoma Cyst [...] abscess in the left neck Narrative PATHOLOGY [facility] - 12/14/2024 3:15 PM CDT EPIC results best viewed via link to PDF [facility] Laboratory of Surgical Pathology [place], [place] [id number] Note to Patients: This report may contain [...] Gender: M : 1985 (Age: 39) Address: [address] [place] [address] Hospital #: [id number] Taken:12/10/2024 Received:12/11/2024 Reported: 12/14/2024 Patient Type: [facility] Inpatient Service: Radiology Location: [place] [address] Physician(s): Nitesh Christie PA FINAL DIAGNOSIS A. [...] Surgical Pathology and Flow Cytometry Departments at [facility] as part of an ongoing quality assistant [...] Surgical Pathology and Flow Cytometry Departments of [facility]. It has not been cleared or approved by the U. S. Food and Drug Administration. Nate ROSENTHAL LAB CYTOLOGY ORDER JOEY Final Result PATHOLOGY [facility] 3rd Floor [place], [place] [phone] * Mycology (fungal) culture and stain Abscess Neck (12/10/2024 2:00 PM CDT) Direct Specimen Exam Stain: No Fungal elements seen. Report Final Report: No growth of fungus [facility] Abscess (Neck) 12/10/2024 2: 00 PM CDT 12/10/2024 6:21 PM CDT Narrative [facility] - 01/07/2025 8:18 AM CDT Specimen received in a sterile container. Testing performed by [facility] ([phone]). Nate ROSENTHAL LAB MICROBIOLOGY - GENERAL ORDERABLES Final Result Performing Organization Address [facility] de Phone Number [facility] [place] [address] * Aerobic and anaerobic culture and gram stain Abscess Neck (12/10/2024 2:00 PM CDT) Direct Specimen Exam Stain: Abundant polymorphonuclear leukocytes seen. No organisms seen. Report Final Report: No growth [facility] Abscess (Neck) 12/10/2024 2: 00 PM CDT 12/10/2024 6:21 PM CDT Narrative [facility] - 12/14/2024 11:47 AM CDT Specimen received in a sterile container. Testing performed by [facility] ([phone]) Specimens submitted from normally sterile body sites [...] GENERAL ORDERABLES Final Result Performing Organization Address [facility] de Phone Number [facility] Department [place] [address] * eGFR (12/09/2024 9:05 PM CDT) eGFR [...] ROSENTHAL LAB BLOOD ORDERABL ES Final Result [facility] [place] [address] * (ABNORMAL) Differential, auto (12/09/2024 9:05 PM CDT) Neutrophil abs 9.01(H) 1.50 - 6.50 K/cumm Imm gran abs 0.04 0.00 - 0.10 K/cumm [facility] Lymphocyte abs 2.53 0.80 - 3.30 K/cumm [facility] Monocyte abs 1.11(H) 0.20 - 0.80 K/cumm [facility] Eosinophil abs 0.12 0.00 - 0.50 K/cumm [facility] Basophil abs 0.09 0.00 - 0.10 K/cumm [facility] Neutrophil pct 69.9 % [facility] Comment: Interpretive Data Percent cell count reference ranges are not reported, since discordance with absolute values may lead to misinterpretation of CBC data. Current Interpretive Data was last revised on 2017. Imm gran pct 0.3 % [facility] Comment: Interpretive Data Percent cell count reference ranges are not reported, since discordance with absolute values may lead to misinterpretation of CBC data. Current Interpretive Data was last revised on 2017. Lymphocyte pct 19.6 % [facility] Comment: Interpretive Data Percent cell count reference ranges are not reported, since discordance with absolute values may lead to misinterpretation of CBC data. Current Interpretive Data was last revised on 2017. Monocyte pct 8.6 % [facility] Comment: Interpretive Data Percent cell count reference ranges are not reported, since discordance with absolute values may lead to misinterpretation of CBC data. Current Interpretive Data was last revised on 2017. Eosinophil pct 0.9 % [facility] Comment: Interpretive Data Percent cell count reference ranges are not reported, since discordance with absolute values may lead to misinterpretation of CBC data. Current Interpretive Data was last revised on 2017. Basophil pct 0.7 % [facility] Comment: Interpretive Data Percent cell count reference ranges are not reported, since discordance with absolute values may lead to misinterpretation of CBC data. Current Interpretive Data was last revised on 2017. Blood 12/09/2024 9:05 PM CDT 12/09/2024 11:08 PM CDT us Nate ROSENTHAL LAB BLOOD ORDERABL ES Final Result [facility] Department [place] [address] * (ABNORMAL) CBC with auto differential (12/09/2024 9:05 PM CDT) WBC 12.90(H) 3.80 - 9.90 K/cumm Hgb 13.2 13.0 - 17.5 g/dL [facility] Hct 38.7(L) 38.9 - 50.3 % [facility] Plt 263 150 - 400 K/cumm [facility] MPV 10.4 9.1 - 12.3 fL [facility] RBC 4.23(L) 4.30 - 5.80 M/cumm [facility] MCV 91.5 81.3 - 96.4 fL [facility] MCH 31.2 27.1 - 33.3 pg [facility] MCHC 34.1 32.3 - 35.7 g/dL [facility] RDW CV 13.2 11.1 - 14.9 % [facility] RDW SD 44.5 35.7 - 48.1 fL [facility] NRBC abs 0.00 0.00 - 0.01 K/cumm [facility] Blood 12/09/2024 9:05 PM CDT 12/09/2024 11:08 PM CDT Nate ROSENTHAL LAB BLOOD ORDERABL ES Final Result [facility] Department [place] [address] * Basic metabolic panel (12/09/2024 9:05 PM CDT) Sodium 139 135 - 145 mmol/L Potassium, pl 4.1 3.3 - 4.9 mmol/L [facility] Chloride 102 97 - 110 mmol/L [facility] CO2 29 22 - 32 mmol/L [facility] Anion gap 8 2 - 15 mmol/L [facility] BUN 19 6 - 25 mg/dL [facility] Creatinine 0.88 0.80 - 1.30 mg/dL [facility] Glucose 80 70 - 199 mg/dL [facility] Comment: Interpretive Data Fasting glucose >/= [...] 2022. Calcium 9.1 8.5 - 10.3 mg/dL [facility] Blood 12/09/2024 9:05 PM CDT 12/09/2024 11:08 PM CDT Nate ROSENTHAL LAB BLOOD ORDERABL ES Final Result [facility] Department [place] [address] * US Head Neck Soft Tissue (12/09/2024 [...] Final Result Performing Organization Address [facility] de Phone Number [facility] [place] [address] * (ABNORMAL) Protime-INR (12/09/2024 4:09 AM CDT) Pathologist [facility] PT 14.3(H) 9.7 - 13.0 sec INR 1.32(H) 0.90 - 1.20 [facility] Comment: Interpretive data Oral anticoagulant [...] Final Result Performing Organization Address [facility] de Phone Number [facility] Department [place] [address] * (ABNORMAL) CBC without differential (12/09/2024 4:09 AM CDT) [facility] WBC 13.58(H) 3.80 - 9.90 K/cumm Hgb 12.3(L) 13.0 - 17.5 g/dL [facility] Hct 35.7(L) 38.9 - 50.3 % [facility] Plt 262 150 - 400 K/cumm [facility] MPV 10.8 9.1 - 12.3 fL [facility] RBC 3.96(L) 4.30 - 5.80 M/cumm [facility] MCV 90.2 81.3 - 96.4 fL [facility] MCH 31.1 27.1 - 33.3 pg [facility] MCHC 34.5 32.3 - 35.7 g/dL [facility] RDW CV 13.2 11.1 - 14.9 % [facility] RDW SD 44.1 35.7 - 48.1 fL [facility] NRBC abs 0.00 0.00 - 0.01 K/cumm [facility] Blood 12/09/2024 4:09 AM CDT 12/09/2024 5:23 AM CDT Nate ROSENTHAL LAB BLOOD ORDERABL ES Final Result [facility] Department [place] [address] * Basic metabolic panel (12/09/2024 4:09 AM CDT) Pathologist [facility] Sodium 138 135 - 145 mmol/L Potassium, pl 3.9 3.3 - 4.9 mmol/L [facility] Chloride 102 97 - 110 mmol/L [facility] CO2 26 22 - 32 mmol/L [facility] Anion gap 10 2 - 15 mmol/L [facility] BUN 17 6 - 25 mg/dL [facility] Creatinine 0.83 0.80 - 1.30 mg/dL [facility] Glucose 96 70 - 199 mg/dL [facility] Comment: Interpretive Data Fasting glucose >/= [...] 2022. Calcium 9.1 8.5 - 10.3 mg/dL [facility] Blood 12/09/2024 4:09 AM CDT 12/09/2024 5:23 AM CDT Nate ROSENTHAL LAB BLOOD ORDERABL ES Final Result [facility] Department [place] [address] * [place] CRITICAL CARE ILL/INJURED PATIENT INIT 30-74 MIN (12/08/2024 6:39 AM CDT) Narrative Keyur Phillip MD - 12/08/2024 6:39 AM CDT Keyur Phlilip MD 12/08/2024 6:40 AM Critical Care Performed [...] received on an ESwab. Testing performed by [facility] ([phone]) Specimens submitted from normally sterile body sites [...] GENERAL ORDERABLES Edited Result - [facility] [place] [address] * Sepsis Lactate w/ Reflex (12/07/2024 9:43 PM CDT) Sepsis Lactate 1.1 0.7 - 2.0 mmol/L Blood 12/07/2024 9:43 PM CDT 12/07/2024 9:45 PM CDT Dick ROSENTHAL LAB BLOOD ORDERABLES Final R esult [facility] [address] [facility] Department [place] [address] * eGFR (12/07/2024 9:43 PM CDT) eGFR [...] MD LAB BLOOD ORDERABLE S Final Result [facility] [address] [facility] Department [place] [address] * (ABNORMAL) Differential, auto (12/07/2024 9:43 PM CDT) Neutrophil abs 9.48(H) 1.50 - 6.50 K/cumm Imm gran abs 0.04 0.00 - 0.10 K/cumm [facility] Lymphocyte abs 2.06 0.80 - 3.30 K/cumm [facility] Monocyte abs 0.97(H) 0.20 - 0.80 K/cumm [facility] Eosinophil abs 0.14 0.00 - 0.50 K/cumm [facility] Basophil abs 0.07 0.00 - 0.10 K/cumm [facility] Neutrophil pct 74.4 % [facility] Comment: Interpretive Data Percent cell count reference ranges are not reported, since discordance with absolute values may lead to misinterpretation of CBC data. Current Interpretive Data was last revised on 2017. Imm gran pct 0.3 % [facility] Comment: Interpretive Data Percent cell count reference ranges are not reported, since discordance with absolute values may lead to misinterpretation of CBC data. Current Interpretive Data was last revised on 2017. Lymphocyte pct 16.1 % [facility] Comment: Interpretive Data Percent cell count reference ranges are not reported, since discordance with absolute values may lead to misinterpretation of CBC data. Current Interpretive Data was last revised on 2017. Monocyte pct 7.6 % [facility] Comment: Interpretive Data Percent cell count reference ranges are not reported, since discordance with absolute values may lead to misinterpretation of CBC data. Current Interpretive Data was last revised on 2017. Eosinophil pct 1.1 % [facility] Comment: Interpretive Data Percent cell count reference ranges are not reported, since discordance with absolute values may lead to misinterpretation of CBC data. Current Interpretive Data was last revised on 2017. Basophil pct 0.5 % [facility] Comment: Interpretive Data Percent cell count reference ranges are not reported, since discordance with absolute values may lead to misinterpretation of CBC data. Current Interpretive Data was last revised on 2017. Blood 12/07/2024 9:43 PM CDT 12/07/2024 9:46 PM CDT us Evan Reynolds MD LAB BLOOD ORDERABLE S Final Result [facility] [address] [facility] Department [place] [address] * (ABNORMAL) CBC with auto differential (12/07/2024 9:43 PM CDT) WBC 12.76(H) 3.80 - 9.90 K/cumm Hgb 14.3 13.0 - 17.5 g/dL [facility] Hct 42.2 38.9 - 50.3 % [facility] Plt 243 150 - 400 K/cumm [facility] MPV 9.7 9.1 - 12.3 fL [facility] RBC 4.65 4.30 - 5.80 M/cumm [facility] MCV 90.8 81.3 - 96.4 fL [facility] MCH 30.8 27.1 - 33.3 pg [facility] MCHC 33.9 32.3 - 35.7 g/dL [facility] RDW CV 13.3 11.1 - 14.9 % [facility] RDW SD 44.6 35.7 - 48.1 fL [facility] NRBC abs 0.00 0.00 - 0.01 K/cumm [facility] Blood 12/07/2024 9:43 PM CDT 12/07/2024 9:46 PM CDT us Evan Reynolds MD LAB BLOOD ORDERABLE S Final Result [facility] [address] [facility] Department [place] [address] * Comprehensive metabolic panel (12/07/2024 9:43 PM CDT) Sodium 135 135 - 145 mmol/L Potassium, pl 3.8 3.3 - 4.9 mmol/L [facility] Chloride 99 97 - 110 mmol/L [facility] CO2 24 22 - 32 mmol/L [facility] Anion gap 12 2 - 15 mmol/L [facility] BUN 16 6 - 25 mg/dL [facility] Creatinine 0.83 0.80 - 1.30 mg/dL [facility] Glucose 118 70 - 199 mg/dL [facility] Comment: Interpretive Data Fasting glucose [...] 2022. Calcium 9.5 8.5 - 10.3 mg/dL [facility] Bilirubin, total 0.7 0.1 - 1.2 mg/dL [facility] Protein, pl 7.8 6.5 - 8.5 g/dL [facility] Albumin 4.2 3.5 - 5.0 g/dL [facility] Alk phos 58 40 - 130 Units/L [facility] ALT 17 7 - 55 Units/L [facility] AST 20 10 - 50 Units/L [facility] Blood 12/07/2024 9:43 PM CDT 12/07/2024 9:46 PM CDT Evan Reynolds MD LAB BLOOD ORDERABLE S Final Result [facility] [address] [facility] Department [place] [address] * CT Neck Soft Tissue W Contrast [...] Pt states he has been seen at [facility] and was prescribed abx. I then saw [...] Den Barney M.D. BS T: Report ID: [id number] Reading Location: [id number] Procedure Note Den Barney MD - 12/07/2024 EXAM DESCRIPTION: CT SOFT TISSUE NECK W CONTRAST REASON FOR STUDY: left sided neck swelling, possible abscess Pt to ED I have a salivary gland that's been clogged for 4 days Ptstates he has been seen at [facility] and was prescribed abx. I then saw [...] Den Barney M.D. BS T: Report ID: [id number] Reading Location: [place] [address] us Maryana ROSENTHAL IMG CT PROCEDURES Final [...] was last reviewed 2021. Testing performed by: [facility], [address] [place] [address], [place]., [address] Blood 12/06/2024 8:14 AM CDT 12/06/2024 8:18 AM CDT us Jose Caal MD LAB BLOOD ORDERABLES Isa ayala Result [facility] [address] [facility] Department [place] [address] * (ABNORMAL) Differential, auto (12/06/2024 8:14 AM CDT) Neutrophil abs 11.05(H) 1.50 - 6.50 K/cumm Comment:Testing performed by : [address] [address] Imm gran abs 0.11(H) 0.00 - 0.10 K/cumm [facility] Comment:Testing performed by : [address] [address] Lymphocyte abs 2.65 0.80 - 3.30 K/cumm [facility] Comment:Testing performed by : [address] [address] Monocyte abs 1.01(H) 0.20 - 0.80 K/cumm [facility] Comment:Testing performed by : [address] [address] Eosinophil abs 0.02 0.00 - 0.50 K/cumm [facility] Comment:Testing performed by : [address] [address] Basophil abs 0.08 0.00 - 0.10 K/cumm [facility] Comment:Testing performed by : [address] [address] Neutrophil pct 74.1 % [facility] Comment: Interpretive Data Percent cell count reference ranges are not reported, since discordance with absolute values may lead to misinterpretation of CBC data. Current Interpretive Data was last revised on 2017. Testing performed by: [address] [address] Imm gran pct 0.7 % [facility] Comment: Interpretive Data Percent cell count reference ranges are not reported, since discordance with absolute values may lead to misinterpretation of CBC data. Current Interpretive Data was last revised on 2017. Testing performed by: [address] [address] Lymphocyte pct 17.8 % [facility] Comment: Interpretive Data Percent cell count reference ranges are not reported, since discordance with absolute values may lead to misinterpretation of CBC data. Current Interpretive Data was last revised on 2017. Testing performed by: [address] [address] Monocyte pct 6.8 % [facility] Comment: Interpretive Data Percent cell count reference ranges are not reported, since discordance with absolute values may lead to misinterpretation of CBC data. Current Interpretive Data was last revised on 2017. Testing performed by: [address] [address] Eosinophil pct 0.1 % [facility] Comment: Interpretive Data Percent cell count reference ranges are not reported, since discordance with absolute values may lead to misinterpretation of CBC data. Current Interpretive Data was last revised on 2017. Testing performed by: [address] [address] Basophil pct 0.5 % [facility] Comment: Interpretive Data Percent cell count reference ranges are not reported, since discordance with absolute values may lead to misinterpretation of CBC data. Current Interpretive Data was last revised on 2017. Testing performed by: [address] [address] Blood 12/06/2024 8:14 AM CDT 12/06/2024 8:19 AM CDT us Jose Caal MD LAB BLOOD ORDERABLES Isa ayala Result [facility] [address] [facility] Department [place] [address] * (ABNORMAL) CBC with auto differential (12/06/2024 8:14 AM CDT) WBC 14.92(H) 3.80 - 9.90 K/cumm Comment:Testing performed by : [address] [address] Hgb 15.1 13.0 - 17.5 g/dL [facility] Comment:Testing performed by : [address], [address] Hct 44.7 38.9 - 50.3 % [facility] Comment:Testing performed by : [address], [address] Plt 264 150 - 400 K/cumm [facility] Comment:Testing performed by : [address], [address] MPV 9.6 9.1 - 12.3 fL [facility] Comment:Testing performed by : [address], [address] RBC 4.89 4.30 - 5.80 M/cumm [facility] Comment:Testing performed by : [address], [address] MCV 91.4 81.3 - 96.4 fL [facility] Comment:Testing performed by : [address], [address] MCH 30.9 27.1 - 33.3 pg [facility] Comment:Testing performed by : [address], [address] MCHC 33.8 32.3 - 35.7 g/dL [facility] Comment:Testing performed by : [address], [address] RDW CV 13.5 11.1 - 14.9 % [facility] Comment:Testing performed by : [address], [address] RDW SD 45.7 35.7 - 48.1 fL [facility] Comment:Testing performed by : [address], [address] NRBC abs 0.00 0.00 - 0.01 K/cumm [facility] Comment:Testing performed by : [address], [address] Blood 12/06/2024 8:14 AM CDT 12/06/2024 8:19 AM CDT us Jose Caal MD LAB BLOOD ORDERABLES Isa ayala Result [facility] [address] [facility] Department [place] [address] * Comprehensive metabolic panel (12/06/2024 8:14 AM CDT) Sodium 136 135 - 145 mmol/L Comment:Testing performed by : [address], [place]., [address] Potassium, pl 4.2 3.3 - 4.9 mmol/L [facility] Comment: Hemolyzed; Potassium value may be falsely elevated by as much as 1.0 mmol/L. Suggest redraw and reanalysis. Testing performed by: [address], [place]., [address] Chloride 101 97 - 110 mmol/L [facility] Comment:Testing performed by : [address], [place]., [address] CO2 23 22 - 32 mmol/L [facility] Comment:Testing performed by : [address] [address] Anion gap 12 2 - 15 mmol/L [facility] Comment:Testing performed by : [address] [address] BUN 11 6 - 25 mg/dL [facility] Comment:Testing performed by : [address] [address] Creatinine 0.91 0.80 - 1.30 mg/dL [facility] Comment:Testing performed by : [address] [address] Glucose 98 70 - 199 mg/dL [facility] [...] was last revised 2022. Testing performed by: [address] [address] Calcium 10.1 8.5 - 10.3 mg/dL [facility] Comment:Testing performed by : [address] [address] Bilirubin, total 0.8 0.1 - 1.2 mg/dL [facility] Comment:Testing performed by : [address] [address] Protein, pl 8.5 6.5 - 8.5 g/dL [facility] Comment:Testing performed by : [address] [address] Albumin 4.8 3.5 - 5.0 g/dL [facility] Comment:Testing performed by : [address] [address] Alk phos 67 40 - 130 Units/L [facility] Comment:Testing performed by : [address] [address] ALT 26 7 - 55 Units/L [facility] Comment:Testing performed by : [address] [address] AST 31 10 - 50 Units/L [facility] Comment: Hemolyzed; result may be falsely elevated Testing performed by: [address] [address] Blood 12/06/2024 8:14 AM CDT 12/06/2024 8:18 AM CDT us Jose Caal MD LAB BLOOD ORDERABLES Isa l Result [facility] [address] [facility] Department [place] [address] from Last 3 Months Advance Directives For more information, please contact: [phone] * Full Code (Latest Code Status on File) Date Activated Date Inactivated Comments 01/07/2025 9:12 AM 01/10/2025 5:24 PM * Full Code Date Activated Date Inactivated Comments 12/08/2024 4:30 AM 12/11/2024 4:25 PM Care Teams Coach Driver Relationship Specialty Start Date End Date No, Physician PCP - General 05/13/23
== END 2025-01-31 07:25 | disposition left against medical advice (07) ==
LOC: ANHED 07:42
PROVIDERS: Emergency Provider Emergency Medicine
DX: R22.1 Localized swelling, mass and lump, neck (principal); T81.40XA Infection following a procedure, unspecified, initial encounter
CPT/HCPCS: 99281